=== PATIENT | female | born 1995 | race Caucasian/White ===

== ENCOUNTER 2016-03-25 03:12 | Outpatient (CLI) | payer OTHER ==
[2016-03-25 03:34] LABS: APPEARANCE,URINE SLIGHTLY-CLOUDY; BILIRUBIN,URINE NEGATIVE (NEGATIVE); GLUCOSE, URINE NEGATIVE (NEGATIVE); KETONES,URINE NEGATIVE (NEGATIVE); LEUKOCYTE ESTERASE,URINE LARGE (NEGATIVE); NITRITE,URINE NEGATIVE (NEGATIVE); PROTEIN,URINE NEGATIVE (NEGATIVE); URINE SPECIFIC GRAVITY 1.009; UROBILINOGEN,URINE NEGATIVE mg/dL (<2.0)
[2016-03-25 03:57] LABS: URINE BARBITURATES SCREEN NEGATIVE; URINE METHADONE SCREEN NEGATIVE; URINE PHENCYCLIDINE SCREEN NEGATIVE
[2016-03-25] MEDS ORDERED: PROMETHAZINE HCL 25 MG TABLET PO ONE (04:55)
[2016-03-25] MEDS ORDERED: PROMETHAZINE HCL 25 MG TABLET ONE (05:02)
--- NOTE | 2016-03-25 05:13 | Non Stress Test Report ---
Non Stress Test Datetime Report Generated by CPN: 03/25/2016 05:12 DEMOGRAPHIC Test Number: 1 EGA NST: 40.1 INDICATION Indication for Study: Other Indication for Study (NST) Other: labor check MONITORING Monitor Explained: Monitor Explained; Test Explained; Patient Verbalized Understanding Time on Monitor: 03/25/2016 03:25 Time off Monitor: 03/25/2016 03:50 NST Duration: 25 NST INTERVENTIONS NST Interventions: PO Hydration Physician Notified NST: Dr Segura BABY A: [id number] BABY A Movement : Present Contraction Frequency : 4-5 FHR Baseline : 130 Accelerations : 15X15 Decelerations : None Variability : Moderate 6-25bpm NST Review: Meets Criteria for Reactive NST NST Review and Verified By : Kallie Dowd, RN NST Results: Reactive NST REPORT Report Trigger: Send Report
== END 2016-03-25 05:08 | disposition home or self-care (01) ==
LOC: LC 03:12
PROVIDERS: ATTEND Obstetrics & Gynecology
PROC: 4A1HXCZ Monitoring of Products of Conception, Cardiac Rate, External Approach (ICD-10-PCS; principal; 2016-03-25)
DX: O47.1 False labor at or after 37 completed weeks of gestation (principal); Z3A.40 40 weeks gestation of pregnancy
CPT/HCPCS: 59025; 80307; 81005

== ENCOUNTER 2016-03-25 11:33 | Inpatient (IN) | payer OTHER ==
[2016-03-25] MEDS ORDERED: RINGERS SOLUTION,LACTATED 1,000 ML IV PRN (11:40)
[2016-03-25] MEDS ORDERED: NALBUPHINE HCL INJ 10 MG/1 ML AMPULE ONE (11:49)
[2016-03-25] MEDS ORDERED: PROMETHAZINE HCL INJ 25 MG/1 ML VIAL ONE (11:49)
--- NOTE | 2016-03-25 12:01 | L&D Flow Sheet ---
LD Flowsheet Datetime Report Generated by CPN: 03/25/2016 12:00 Datetime: 03/25/2016 11:53 Medication Comments: Nubain 10 mg IV, Phenergan 12.5 mg IV (Shaye Vitrano, RN) Datetime: 03/25/2016 11:52 Patient Care IV/Blood Work: IV Started; IV Bolus Started; IV Bag Number @ 1 (Shaye Vitrano, RN) Patient Care Comments: IV started; 20 G L wrist, site WNL. Bolus started for pt epidural. (Shaye Vitrano, RN) Datetime: 03/25/2016 11:40 Patient Care Comments: Consents reviewed and signed (Shaye Vitrano, RN) Datetime: 03/25/2016 11:37 Vital Signs NBP Sys/Kalyn/Mean (mmHg): 121 (QS system process) : 74 (QS system process) : 91 (QS system process) Pulse: 79 (QS system process) Communication Comments: Chan Mayer CNM called, report given to include EGA 40.1, , pt complaints contractions, SVE, toco tracing, FHTs, pt hx, VS. Orders to admit pt for labor and SROM, epidural PRN. May have Nubain 10 mg IV x1 now, Phenergan 12.5 mg IV x1 now for pain. (Shaye Isela RN) Datetime: 03/25/2016 11:36 Vaginal Exam Dilatation (cm): 6.0 (Shaye MYA Weiss) Effacement (%): 80 (Shaye Vitrano, RN) Station: -1 (Shaye Vitrano, RN) Exam by: Alice Weiss, RN (Shaye Vitrano, RN) Datetime: 03/25/2016 05:08 Patient Care Comments: patient ambulated off the unit in stable condition. (Nitza Gonzalez) Datetime: 03/25/2016 05:05 Medications Antiemetics/Antacids: Phenergan PO (mg) @ (Annotations: 25mg) (Nitza Gonzalez) Datetime: 03/25/2016 05:00 Teaching Comments: Discussed with the patient discharge instructions of early labor and handout given. The patient verbalized understanding of these instructions and no further questions at this time. (Nitza Gonzalez) Datetime: 03/25/2016 04:50 Communication Provider Notified (Name): Dr Segura notified no cervix change 3/50/-2 and the patient has some complaints of nausea. Orders recieved to give te patient phenergan 25 mg po times one dose, and discharge the patient home. (Nitza Gonzalez) Datetime: 03/25/2016 04:45 Vaginal Exam Dilatation (cm): 3.0 (Nitza Gonzalez) Effacement (%): 50 (Nitza Gonzalez) Station: -2 (Nitza Gonzalez) Exam by: Sandhya Gonzalez Rn (Nitza Gonzalez) Datetime: 03/25/2016 03:56 Patient Care Comments: The patient went to the [facility] and had some mild bleeding when she wiped. Explained this can be normal. No further questions or problems. (Nitza Gonzalez) Datetime: 03/25/2016 03:52 Comments: external monitors removed for maternal ambulation. (Nitza Gonzalez) Datetime: 03/25/2016 03:47 Respirations: 18 (Nitza Gonzalez) Uterine Activity Monitor Mode: External; Palpation (Nitza Gonzalez) Monitor Interventions for UA: Romulus Adjusted (Nitza Gonzalez) Frequency (min): 4-5 (Nitza Gonzalez) Quality: Mild/Moderate (Nitza Gonzalez) Duration (sec): 90-100 (Nitza Gonzalez) Resting Tone (Palpate): Relaxed (Nitza Gonzalez) Assessment A Monitor Mode: External US (Nitza Gonzalez) Monitor Interventions for FHR: Ultrasound Adjusted (Nitza Gonzalez) FHR Baseline Rate : 130 (Nitza Gonzalez) Variability: Moderate 6-25 bpm (Nitza Gonzalez) Accelerations: 15X15 (Nitza Gonzalez) Decelerations: None (Nitza Gonzalez) Patient Position/Activity: Left Tilt (Nitza Gonzalez) Datetime: 03/25/2016 03:40 Communication Provider Notified (Name): Dr Segura at the desk to view the strip/monitor. Cervix 3/50/-3. Orders recieved to walk the patient for an hour then recheck the cervix. (Nitza Gonzalez) Datetime: 03/25/2016 03:31 Frequency (min): 3-5 (Nitza Gonzalez) Pain Pain Scale: 3 (Nitza Gonzalez) Pain Presence: Intermittent (Nitza Gonzalez) Pain Type: Cramping (Nitza Gonzalez) Pain Location: Abdomen; Back (Nitza Gonzalez) Pain Goal: 0 (Nitza Gonzalez) Pain Relief Measures: Comfort Measures (Nitza Gonzalez) Pain Coping: Talking Through Contractions; Breathing Through Contractions (Nitza Gonzalez) Membrane Status: Intact (Nitza Gonzalez) Vaginal Bleeding: None (Nitza Gonzalez) Maternal Assessment Level of Consciousness: Fully Conscious (Nitza Gonzalez) DTR's/Clonus: DTRs 2+; No Clonus (Nitza Gonzalez) Headache: Denies (Nitza Gonzalez) Breath Sounds, Left: Clear and Equal (Nitza Gonzalez) Breath Sounds, Right: Clear and Equal (Nitza Gonzalez) Nausea/Vomiting: Denies (Nitza Gonzalez) RUQ Epigastric Pain: Denies (Nitza Gonzalez) Patient Position/Activity: Left Tilt (Nitza Gonzalez) Teaching Instructional Method: Verbal (Nitza Gonzalez) Plan of Care: Plan of Care Discussed (Nitza Gonzalez) Unit Routine: [facility] to Room; Call [facility]; Bed (Nitza Gonzalez) Datetime: 03/25/2016 03:28 Vital Signs NBP Sys/Kalyn/Mean (mmHg): 158 (QS system process) : 94 (QS system process) : 118 (QS system process) Pulse: 62 (QS system process) Datetime: 03/25/2016 03:25 Vaginal Exam Dilatation (cm): 3.0 (Nitza Gonzalez) Effacement (%): 50 (Nitza Gonzalez) Station: -3 (Nitza Gonzalez) Exam by: A Gonzalez Rn (Nitza Gonzalez) Datetime: 03/25/2016 03:18 Patient Care Comments: patient to the unit for labor check (Nitza Gonzalez)
[2016-03-25] MEDS ORDERED: NALBUPHINE HCL INJ 10 MG/1 ML AMPULE INJ ONE (12:10)
[2016-03-25] MEDS ORDERED: PROMETHAZINE HCL INJ 25 MG/1 ML VIAL IV ONE (12:10)
[2016-03-25] MEDS ORDERED: FENTANYL/BUPIVACAINE/NS/PF 200 MCG/100 ML RTUINJ EPI ONE (12:16)
[2016-03-25] MEDS ORDERED: OXYTOCIN/NORMAL SALINE 20 UNIT/1,000 ML RTUINJ ONE (12:16)
[2016-03-25] MEDS ORDERED: BUPIVACAINE HCL 0.25 % INJ/PF (2.5 MG/1 ML) 30 ML VIAL ONE (12:16)
[2016-03-25] MEDS ORDERED: MISOPROSTOL 0.2 MG TABLET ONE (12:16)
[2016-03-25] MEDS ORDERED: EPHEDRINE SULFATE INJ 50 MG/1 ML AMPULE ONE (12:16)
[2016-03-25] MEDS ORDERED: LIDOCAINE 1% INJ-PF (10 MG/ML) 30 ML SDV ONE (12:16)
[2016-03-25 12:23] LABS: ABSOLUTE LYMPHOCYTES (AUTO) 2.3 10^3/uL (0.5-4.7); ABSOLUTE MONOCYTES (AUTO) 0.7 10^3/uL (0.1-1.4); BASOPHILS % (AUTO) 0.3 % (0-2); EOSINOPHILS % (AUTO) 0.3 % (0-6); HEMATOCRIT 36.5 % (36.0-47.0); HEMOGLOBIN 12.3 g/dL (12.0-15.5); HGB HCT DIFFERENCE 0.4; LYMPHOCYTES % (AUTO) 25.3 % (13-45); MEAN CORPUSCULAR HGB CONC 33.7 g/dL (32.0-36.0); MEAN CORPUSCULAR VOLUME 89 fl (80-97); MONOCYTES % (AUTO) 7.7 % (3-13); RED BLOOD COUNT 4.09 10^6/uL (3.72-5.28); RED CELL DISTRIBUTION WIDTH 13.5 % (11.5-14.0); SEGMENTED NEUTROPHILS % (AUTO) 66.4 % (42-78); WHITE BLOOD COUNT 9.1 10^3/uL (4.0-10.5)
--- NOTE | 2016-03-25 16:01 | L&D Flow Sheet ---
LD Flowsheet Datetime Report Generated by CPN: 03/25/2016 16:00 Datetime: 03/25/2016 15:58 NBP Sys/Kalyn/Mean (mmHg): 103 (QS system process) : 57 (QS system process) : 76 (QS system process) Pulse: 142 (QS system process) Respirations: 16 (Shaye Vitrano, RN) LaborFlag: Labor (QS system process) Datetime: 03/25/2016 15:48 Patient Position/Activity: Left Tilt; Tailors (Shaye Vitrano, RN) Datetime: 03/25/2016 15:47 Stage 2 Comments: Practice push with Chan Mayer CNM. Pt to labor down. (Shaye Vitrano, RN) Datetime: 03/25/2016 15:46 Dilatation (cm): 10.0 (Shaye Vitrano, RN) Effacement (%): 100 (Shaye Vitrano, RN) Station: 1 (Shaye Vitrano, RN) Exam by: Chan Mayer CNM (Shaye Vitrano, RN) Datetime: 03/25/2016 15:45 Monitor Mode: External (Shaye Vitrano, RN) Frequency (min): 2-4 (Shaye Vitrano, RN) Quality: Moderate to Strong (Shaye Vitrano, RN) Duration (sec): 40-70 (Shaye Vitrano, RN) Duration Criteria: Less than Two 120 Second Contractions (Shaye Vitrano, RN) Pattern: Normal: <= 5 Contractions in 10 Minutes (Shaye Vitrano, RN) Resting Tone (Palpate): Relaxed (Shaye Vitrano, RN) Monitor Mode: External US (Shaye Vitrano, RN) FHR Baseline Rate : 140 (Shaye Vitrano, RN) Variability: Moderate 6-25 bpm (Shaye Vitrano, RN) Accelerations: 15X15 (Shaye Vitrano, RN) Decelerations: None (Shaye Vitrano, RN) Datetime: 03/25/2016 15:36 Patient Position/Activity: Left Tilt; Tailors (Shaye Vitrano, RN) I/O Interventions: Clear Liquids Given (Shaye Vitrano, RN) Datetime: 03/25/2016 15:30 Monitor Mode: External (Shaye Vitrano, RN) Frequency (min): 1-2 (Shaye Vitrano, RN) Quality: Moderate to Strong (Shaye Vitrano, RN) Duration (sec): 50-80 (Shaye Vitrano, RN) Duration Criteria: Less than Two 120 Second Contractions (Shaye Vitrano, RN) Pattern: Normal: <= 5 Contractions in 10 Minutes (Shaye Vitrano, RN) Resting Tone (Palpate): Relaxed (Shaye Vitrano, RN) Monitor Mode: External US (Shaye Vitrano, RN) FHR Baseline Rate : 140 (Shaye Vitrano, RN) Variability: Moderate 6-25 bpm (Shaye Vitrano, RN) Accelerations: 15X15 (Shaye Vitrano, RN) Decelerations: None (Shaye Vitrano, RN) Datetime: 03/25/2016 15:28 NBP Sys/Kalyn/Mean (mmHg): 123 (QS system process) : 82 (QS system process) : 98 (QS system process) Pulse: 100 (QS system process) Respirations: 16 (Shaye Vitrano, RN) Temperature (F): 98.1 (Shaye Vitrano, RN) Temperature (C): 36.7 (QS system process) Temperature Route: Axillary (Shaye Vitrano, RN) LaborFlag: Labor (QS system process) Datetime: 03/25/2016 15:18 I/O Interventions: Ice Chips Given (Shaye Vitrano, RN) Datetime: 03/25/2016 15:15 Monitor Mode: External (Shaye Vitrano, RN) Frequency (min): 1-2.5 (Shaye Vitrano, RN) Quality: Moderate to Strong (Shaye Vitrano, RN) Duration (sec): 50-90 (Shaye Vitrano, RN) Duration Criteria: Less than Two 120 Second Contractions (Shaye Vitrano, RN) Pattern: Normal: <= 5 Contractions in 10 Minutes (Shaye Vitrano, RN) Resting Tone (Palpate): Relaxed (Shaye Vitrano, RN) Monitor Mode: External US (Shaye Vitrano, RN) FHR Baseline Rate : 140 (Shaye Vitrano, RN) Variability: Moderate 6-25 bpm (Shaye Vitrano, RN) Accelerations: None (Shaye Vitrano, RN) Decelerations: None (Shaye Vitrano, RN) Datetime: 03/25/2016 15:00 Monitor Mode: External; Palpation (Shaye Vitrano, RN) Frequency (min): 1-3 (Shaye Vitrano, RN) Quality: Moderate to Strong (Shaye Vitrano, RN) Duration (sec): 50-180 (Shaye Vitrano, RN) Duration Criteria: Less than Two 120 Second Contractions (Shaye Vitrano, RN) Pattern: Normal: <= 5 Contractions in 10 Minutes (Shaye Vitrano, RN) Resting Tone (Palpate): Relaxed (Shaye Vitrano, RN) Monitor Mode: External US (Shaye Vitrano, RN) FHR Baseline Rate : 130 (Shaye Vitrano, RN) Variability: Moderate 6-25 bpm (Shaye Vitrano, RN) Accelerations: None (Shaye Vitrano, RN) Decelerations: Early (Shaye Vitrano, RN) Datetime: 03/25/2016 14:57 Communication Comments: Chan Mayer CNM reviewing POC and answering pt questions (Shaye Vitrano, RN) Datetime: 03/25/2016 14:56 NBP Sys/Kalyn/Mean (mmHg): 142 (QS system process) : 69 (QS system process) : 99 (QS system process) Pulse: 84 (QS system process) Respirations: 16 (Shaye Vitrano, RN) LaborFlag: Labor (QS system process) Datetime: 03/25/2016 14:50 Communication Comments: CNirmal Mayer CNM at bedside to assess pt (Shaye Vitrano, RN) Datetime: 03/25/2016 14:45 Monitor Mode: External (Shaye Vitrano, RN) Frequency (min): 2-3 (Shaye Vitrano, RN) Quality: Moderate to Strong (Shaye Vitrano, RN) Duration (sec): 50-80 (Shaye Vitrano, RN) Duration Criteria: Less than Two 120 Second Contractions (Shaye Vitrano, RN) Pattern: Normal: <= 5 Contractions in 10 Minutes (Shaye Vitrano, RN) Resting Tone (Palpate): Relaxed (Shaye Vitrano, RN) Monitor Mode: External US (Shaye Vitrano, RN) FHR Baseline Rate : 140 (Shaye Vitrano, RN) Variability: Moderate 6-25 bpm (Shaye Vitrano, RN) Accelerations: None (Shaye Vitrano, RN) Decelerations: Early (Shaye Vitrano, RN) Datetime: 03/25/2016 14:42 NBP Sys/Kalny/Mean (mmHg): 123 (QS system process) : 62 (QS system process) : 87 (QS system process) Pulse: 88 (QS system process) Respirations: 16 (Shaye Vitrano, RN) LaborFlag: Labor (QS system process) Datetime: 03/25/2016 14:35 Patient Position/Activity: Right Lateral; Peanut Ball (Shaye Vitrano, RN) Patient Care Comments: Pt resting comfortably, family at bedside, denies needs (Shaye Vitrano, RN) Datetime: 03/25/2016 14:30 Monitor Mode: External (Shaye Vitrano, RN) Frequency (min): 2-3.5 (Shaye Vitrano, RN) Quality: Moderate to Strong (Shaye Vitrano, RN) Duration (sec): 50-90 (Shaye Vitrano, RN) Duration Criteria: Less than Two 120 Second Contractions (Shaye Vitrano, RN) Pattern: Normal: <= 5 Contractions in 10 Minutes (Shaye Vitrano, RN) Resting Tone (Palpate): Relaxed (Shaye Vitrano, RN) Monitor Mode: External US (Shaye Vitrano, RN) FHR Baseline Rate : 130 (Shaye Vitrano, RN) Variability: Moderate 6-25 bpm (Shaye Vitrano, RN) Accelerations: None (Shaye Vitrano, RN) Decelerations: None (Shaye Vitrano, RN) Datetime: 03/25/2016 14:15 Monitor Mode: External (Shaye Vitrano, RN) Frequency (min): 2-4 (Shaye Vitrano, RN) Quality: Moderate to Strong (Shaye Vitrano, RN) Duration (sec): 50-90 (Shaye Vitrano, RN) Duration Criteria: Less than Two 120 Second Contractions (Shaye Vitrano, RN) Pattern: Normal: <= 5 Contractions in 10 Minutes (Shaye Vitrano, RN) Resting Tone (Palpate): Relaxed (Shaye Vitrano, RN) Monitor Mode: External US (Shaye Vitrano, RN) FHR Baseline Rate : 130 (Shaye Vitrano, RN) Variability: Moderate 6-25 bpm (Shaye Vitrano, RN) Accelerations: 15X15 (Shaye Vitrano, RN) Decelerations: None (Shaye Vitrano, RN) Datetime: 03/25/2016 14:11 NBP Sys/Kalyn/Mean (mmHg): 117 (QS system process) : 64 (QS system process) : 86 (QS system process) Pulse: 69 (QS system process) Respirations: 15 (Shaye Vitrano, RN) LaborFlag: Labor (QS system process) Datetime: 03/25/2016 14:00 Monitor Mode: External; Palpation (Shaye Vitrano, RN) Frequency (min): 2-5 (Shaye Vitrano, RN) Quality: Moderate to Strong (Shaye Vitrano, RN) Duration (sec): 50-90 (Shaye Vitrano, RN) Duration Criteria: Less than Two 120 Second Contractions (Shaye Vitrano, RN) Pattern: Normal: <= 5 Contractions in 10 Minutes (Shaye Vitrano, RN) Resting Tone (Palpate): Relaxed (Shaye Vitrano, RN) Monitor Mode: External US (Shaye Vitrano, RN) FHR Baseline Rate : 135 (Shaye Vitrano, RN) Variability: Moderate 6-25 bpm (Shaye Vitrano, RN) Accelerations: 15X15 (Shaye Vitrano, RN) Decelerations: None (Shaye Vitrano, RN) Datetime: 03/25/2016 13:56 NBP Sys/Kalyn/Mean (mmHg): 118 (QS system process) : 64 (QS system process) : 85 (QS system process) Pulse: 60 (QS system process) Respirations: 16 (Shaye Vitrano, RN) LaborFlag: Labor (QS system process) Datetime: 03/25/2016 13:45 Monitor Mode: External; Palpation (Shaye Vitrano, RN) Frequency (min): 2-6 (Shaye Vitrano, RN) Quality: Moderate to Strong (Shaye Vitrano, RN) Duration (sec): 60-150 (Shaye Vitrano, RN) Duration Criteria: Less than Two 120 Second Contractions (Shaye Vitrano, RN) Pattern: Normal: <= 5 Contractions in 10 Minutes (Shaye Vitrano, RN) Resting Tone (Palpate): Relaxed (Shaye Vitrano, RN) Monitor Mode: External US (Shaye Vitrano, RN) FHR Baseline Rate : 135 (Shaye Vitrano, RN) Variability: Moderate 6-25 bpm (Shaye Vitrano, RN) Accelerations: None (Shaye Vitrano, RN) Decelerations: Late (Shaye Vitrano, RN) Datetime: 03/25/2016 13:42 NBP Sys/Kalyn/Mean (mmHg): 122 (QS system process) : 67 (QS system process) : 83 (QS system process) Pulse: 70 (QS system process) Respirations: 16 (Shaye Vitrano, RN) LaborFlag: Labor (QS system process) Datetime: 03/25/2016 13:38 Temperature (F): 97.6 (Shaye Vitrano, RN) Temperature (C): 36.4 (QS system process) Temperature Route: Oral (Shaye Vitrano, RN) LaborFlag: Labor (QS system process) Datetime: 03/25/2016 13:31 Patient Position/Activity: Left Tilt; Peanut Ball (Shaye Vitrano, RN) Datetime: 03/25/2016 13:30 Monitor Mode: External; Palpation (Shaye Vitrano, RN) Frequency (min): 2-4 (Shaye Vitrano, RN) Quality: Moderate to Strong (Shaye Vitrano, RN) Duration (sec): 50-80 (Shaye Vitrano, RN) Duration Criteria: Less than Two 120 Second Contractions (Shaye Vitrano, RN) Pattern: Normal: <= 5 Contractions in 10 Minutes (Shaye Vitrano, RN) Resting Tone (Palpate): Relaxed (Shaye Vitrano, RN) Monitor Mode: External US (Shaye Vitrano, RN) FHR Baseline Rate : 130 (Shaye Vitrano, RN) Variability: Moderate 6-25 bpm (Shaye Vitrano, RN) Accelerations: None (Shaye Vitrano, RN) Decelerations: Early (Shaye Vitrano, RN) Datetime: 03/25/2016 13:28 Patient Care Comments: Warm blankets given (Shaye Vitrano, RN) Datetime: 03/25/2016 13:26 Communication Comments: Chan Mayer CNM at bedside, reviewed strip. Reviewing POC with pt, answering questions. No new orders; continue current POC. (Shaye Vitrano, RN) Datetime: 03/25/2016 13:25 NBP Sys/Kalyn/Mean (mmHg): 117 (QS system process) : 59 (QS system process) : 85 (QS system process) Respirations: 16 (Shayeeber Weiss RN) IV/Blood Work: IV Infusing per Order (Shaye Weiss RN) Patient Care Comments: 125 mL/hour (Shayeeber Weiss RN) LaborFlag: Labor (QS system process) Datetime: 03/25/2016 13:24 NBP Sys/Kalyn/Mean (mmHg): 110 (QS system process) : 66 (QS system process) : 82 (QS system process) Pulse: 77 (QS system process) Dilatation (cm): 7.0 (Shaye Isela, RN) Effacement (%): 90 (Shaye Connieano, RN) Station: 0 (Shaye Connieano, RN) Exam by: Alice Weiss RN (Shaye Connieano, RN) LaborFlag: Labor (QS system process) Datetime: 03/25/2016 13:23 NBP Sys/Kalyn/Mean (mmHg): 107 (QS system process) : 69 (QS system process) : 82 (QS system process) Pulse: 67 (QS system process) LaborFlag: Labor (QS system process) Datetime: 03/25/2016 13:22 NBP Sys/Kalyn/Mean (mmHg): 109 (QS system process) : 63 (QS system process) : 81 (QS system process) Pulse: 68 (QS system process) LaborFlag: Labor (QS system process) Datetime: 03/25/2016 13:21 NBP Sys/Kalyn/Mean (mmHg): 100 (QS system process) : 57 (QS system process) : 75 (QS system process) Pulse: 82 (QS system process) I/O Interventions: Morton Cath Inserted (Shayeeber Weiss RN) LaborFlag: Labor (QS system process) Datetime: 03/25/2016 13:20 NBP Sys/Kalyn/Mean (mmHg): 110 (QS system process) : 58 (QS system process) : 80 (QS system process) Pulse: 75 (QS system process) LaborFlag: Labor (QS system process) Datetime: 03/25/2016 13:19 NBP Sys/Kalyn/Mean (mmHg): 109 (QS system process) : 55 (QS system process) : 78 (QS system process) Pulse: 93 (QS system process) LaborFlag: Labor (QS system process) Datetime: 03/25/2016 13:18 NBP Sys/Kalyn/Mean (mmHg): 107 (QS system process) : 60 (QS system process) : 78 (QS system process) Pulse: 78 (QS system process) LaborFlag: Labor (QS system process) Datetime: 03/25/2016 13:17 NBP Sys/Kalyn/Mean (mmHg): 102 (QS system process) : 55 (QS system process) : 72 (QS system process) Pulse: 99 (QS system process) Epidural Procedure Other: Pump Started (Shaye Vitrano, RN) LaborFlag: Labor (QS system process) Datetime: 03/25/2016 13:16 NBP Sys/Kalyn/Mean (mmHg): 122 (QS system process) : 61 (QS system process) : 82 (QS system process) Pulse: 86 (QS system process) Pain Presence: None/Denies (Shaye Vitrano, RN) Pain Type: N/A (Shaye Vitrano, RN) LaborFlag: Labor (QS system process) Datetime: 03/25/2016 13:15 Monitor Mode: External (Shaye Vitrano, RN) Frequency (min): 2-4 (Shaye Vitrano, RN) Quality: Moderate to Strong (Shaye Vitrano, RN) Duration (sec): 50-80 (Shaye Vitrano, RN) Duration Criteria: Less than Two 120 Second Contractions (Shaye Vitrano, RN) Pattern: Normal: <= 5 Contractions in 10 Minutes (Shaye Vitrano, RN) Resting Tone (Palpate): Relaxed (Shaye Vitrano, RN) Monitor Mode: External US (Shaye Vitrano, RN) FHR Baseline Rate : 135 (Shaye Vitrano, RN) Variability: Moderate 6-25 bpm (Shaye Vitrano, RN) Accelerations: 15X15 (Shaye Vitrano, RN) Decelerations: None (Shaye Vitrano, RN) Datetime: 03/25/2016 13:14 Monitor Interventions for UA: [place] Adjusted (Shaye Vitrano, RN) Datetime: 03/25/2016 13:13 Patient Position/Activity: Left Tilt; Semi-Fowlers (Shaye Vitrano, RN) Hygiene: Underpad Changed (Shaye Vitrano, RN) Datetime: 03/25/2016 13:11 NBP Sys/Kalyn/Mean (mmHg): 124 (QS system process) : 82 (QS system process) : 99 (QS system process) Pulse: 78 (QS system process) LaborFlag: Labor (QS system process) Datetime: 03/25/2016 13:10 NBP Sys/Kalyn/Mean (mmHg): 133 (QS system process) : 76 (QS system process) : 99 (QS system process) Pulse: 77 (QS system process) Pulse: 78 (QS system process) SpO2 (%): 100 (QS system process) LaborFlag: Labor (QS system process) Datetime: 03/25/2016 13:09 NBP Sys/Kalyn/Mean (mmHg): 137 (QS system process) : 83 (QS system process) : 105 (QS system process) Pulse: 71 (QS system process) LaborFlag: Labor (QS system process) Datetime: 03/25/2016 13:08 NBP Sys/Kalyn/Mean (mmHg): 140 (QS system process) : 85 (QS system process) : 107 (QS system process) Pulse: 75 (QS system process) LaborFlag: Labor (QS system process) Datetime: 03/25/2016 13:07 NBP Sys/Kalyn/Mean (mmHg): 132 (QS system process) : 80 (QS system process) : 102 (QS system process) Pulse: 78 (QS system process) Anesthesia Plans: Epidural (Shaye Vitrano, RN) Epidural Procedure: Loading Dose (Shaye Vitrano, RN) LaborFlag: Labor (QS system process) Datetime: 03/25/2016 13:06 NBP Sys/Kalyn/Mean (mmHg): 139 (QS system process) : 80 (QS system process) : 104 (QS system process) Pulse: 77 (QS system process) Epidural Procedure: Cath Placed (Shaye Vitrano, RN) Epidural Procedure: Test Dose (Shaye Vitrano, RN) LaborFlag: Labor (QS system process) Datetime: 03/25/2016 13:05 Pulse: 72 (QS system process) SpO2 (%): 100 (QS system process) LaborFlag: Labor (QS system process) Datetime: 03/25/2016 13:01 Comments: Tracing maternal HR d/t pt position for epidural, RN at bedside adjusting US (Shaye Vitrano, RN) Datetime: 03/25/2016 13:00 Pulse: 82 (QS system process) SpO2 (%): 100 (QS system process) Monitor Mode: External; Palpation (Shaye Vitrano, RN) Frequency (min): 2-5 (Shaye Vitrano, RN) Quality: Moderate to Strong (Shaye Vitrano, RN) Duration (sec): 60-90 (Shaye Vitrano, RN) Duration Criteria: Less than Two 120 Second Contractions (Shaye Vitrano, RN) Pattern: Normal: <= 5 Contractions in 10 Minutes (Shaye Vitrano, RN) Resting Tone (Palpate): Relaxed (Shaye Vitrano, RN) Monitor Mode: External US (Shaye Vitrano, RN) FHR Baseline Rate : 130 (Shaye Vitrano, RN) Variability: Moderate 6-25 bpm (Shaye Vitrano, RN) Accelerations: 15X15 (Shaye Vitrano, RN) Decelerations: None (Shaye Vitrano, RN) LaborFlag: Labor (QS system process) Datetime: 03/25/2016 12:57 Comments: Broken tracing d/t pt position for epidural, RN remains at bedside to adjust US (Shaye Vitrano, RN) Datetime: 03/25/2016 12:56 IV/Blood Work: New IV Bag Hung; IV Bag Number @ 2 (Shaye Vitrano, RN) Datetime: 03/25/2016 12:55 Pulse: 89 (QS system process) SpO2 (%): 100 (QS system process) Procedure Verify: Correct Patient Identity; Correct Side and Site are Marked; Accurate Procedure Consent Form; Agreement on Procedure to be Done; Correct Patient Position; Relevant Images and Results are Properly Labeled and Displayed; Addressed Need to Administer Antibiotics or Fluids for Irrigation; Safety Precautions Based on Patient History or Medication Use (Shaye Weiss RN) Anesthesia Plans: Epidural (Shaye Weiss RN) Epidural Positioning: Sitting (Shaye Weiss RN) Anesthesia Comments: Dr. Hinds at bedside (Shaye Weiss RN) LaborFlag: Labor (QS system process) Datetime: 03/25/2016 12:50 Pulse: 75 (QS system process) SpO2 (%): 100 (QS system process) LaborFlag: Labor (QS system process) Datetime: 03/25/2016 12:45 Pulse: 76 (QS system process) SpO2 (%): 100 (QS system process) LaborFlag: Labor (QS system process) Datetime: 03/25/2016 12:40 Pulse: 91 (QS system process) SpO2 (%): 100 (QS system process) LaborFlag: Labor (QS system process) Datetime: 03/25/2016 12:39 Procedure Verify: Correct Patient Identity; Correct Side and Site are Marked; Accurate Procedure Consent Form; Agreement on Procedure to be Done; Correct Patient Position; Relevant Images and Results are Properly Labeled and Displayed; Addressed Need to Administer Antibiotics or Fluids for Irrigation; Safety Precautions Based on Patient History or Medication Use (Shaye Weiss RN) Anesthesia Plans: Epidural (Shaye Weiss RN) Anesthesia Comments: Dr. Hinds notified of pt request for epidural, provider states he will be on his way up (Shaye Vitrano, RN) Datetime: 03/25/2016 12:38 NBP Sys/Kalyn/Mean (mmHg): 132 (QS system process) : 96 (QS system process) : 108 (QS system process) Pulse: 107 (QS system process) Respirations: 16 (Shaye Vitrano, RN) LaborFlag: Labor (QS system process) Datetime: 03/25/2016 12:37 Anesthesia Plans: Epidural (Shaye Vitrano, RN) Epidural Positioning: Sitting (Shaye Vitrano, RN) Datetime: 03/25/2016 12:30 Monitor Mode: External; Palpation (Shaye Vitrano, RN) Frequency (min): 3-5 (Shaye Vitrano, RN) Quality: Moderate to Strong (Shaye Vitrano, RN) Duration (sec): 60-90 (Shaye Vitrano, RN) Duration Criteria: Less than Two 120 Second Contractions (Shaye Vitrano, RN) Pattern: Normal: <= 5 Contractions in 10 Minutes (Shaye Vitrano, RN) Resting Tone (Palpate): Relaxed (Shaye Vitrano, RN) Monitor Mode: External US (Shaye Vitrano, RN) FHR Baseline Rate : 135 (Shaye Vitrano, RN) Variability: Moderate 6-25 bpm (Shaye Vitrano, RN) Accelerations: 15X15 (Shaye Vitrano, RN) Decelerations: Early (Sahye Vitrano, RN) Datetime: 03/25/2016 12:21 Patient Care Comments: Pt resting comfortably in bed, denies needs, FOB at bedside (Shaye Vitrano, RN) Datetime: 03/25/2016 12:11 Patient Care Comments: Labs drawn (Shaye Vitrano, RN) Datetime: 03/25/2016 12:02 Pain Assessment Comments: States pain is relieved (Shaye Vitrano, RN) LaborFlag: Labor (QS system process) Datetime: 03/25/2016 12:00 Monitor Mode: External; Palpation (Shaye Vitrano, RN) Frequency (min): 2-4 (Shaye Vitrano, RN) Quality: Moderate to Strong (Shaye Vitrano, RN) Duration (sec): 50-120 (Shaye Vitrano, RN) Duration Criteria: Less than Two 120 Second Contractions (Shaye Vitrano, RN) Pattern: Normal: <= 5 Contractions in 10 Minutes (Shaye Vitrano, RN) Resting Tone (Palpate): Relaxed (Shaye Vitrano, RN) Monitor Mode: External US (Shaye Vitrano, RN) FHR Baseline Rate : 145 (Shaye Vitrano, RN) Variability: Moderate 6-25 bpm (Shaye Weiss RN) Accelerations: 15X15 (Shaye Weiss RN) Decelerations: None (Shaye Weiss RN)
--- NOTE | 2016-03-25 16:29 | L&D Progress Notes ---
PROGRESS NOTES Datetime Report Generated by CPN: 03/25/2016 16:28 PROGRESS NOTE Impression: Normal Progression of Labor Impression: Normal Progression of Labor Procedures: Sterile Vag Exam Procedures: Sterile Vag Exam Plan: Continue Present Management Plan: Continue Present Management Informed Consent Obtained: Vaginal Delivery Informed Consent Obtained: Vaginal Delivery Vital Signs : Reviewed Vital Signs : Within Normal Limits Comment: Pt. nauseous and feeling occ. perineal pressure VSS, cervix and uc as stated above will labor down x30min then start pushing pt. asked questions and verbalized understanding. Dr. Mclaughlin in unit and aware VAGINAL EXAM Dilatation: 10 Dilatation: 7 Effacement: 100 Effacement: 90 Station: 1 Station: 0 Contractions: 2-3 Contractions: 1-3 MEMBRANES Membranes: Ruptured Amniotic Fluid Color: Clear Amniotic Fluid Color: Clear FETUS A FHR - Baseline: 150 Monitoring: External US Variability: Moderate 6-25bpm Accelerations: 15X15 Decelerations: None FHR Category: Category I SIGNATURE SIGNATURE: [id number] SIGNATURE: [id number] Assignment: Husam Mclaughlin DO Signature: with User ID: Eliu : with User ID: [email or web address]
[2016-03-25] MEDS ORDERED: ACETAMINOPHEN 650 MG SUPP.RECT PR PRN (17:03)
[2016-03-25] MEDS ORDERED: PROMETHAZINE HCL 25 MG TABLET PO PRN (17:03)
[2016-03-25] MEDS ORDERED: GLYCERIN/WITCH HAZEL LEAF 1 EACH MED..PAD TP PRN (17:03)
[2016-03-25] MEDS ORDERED: OXYTOCIN/NORMAL SALINE 1,000 ML IV PRN (17:03)
[2016-03-25] MEDS ORDERED: PROMETHAZINE HCL 25 MG SUPP.RECT PR PRN (17:03)
[2016-03-25] MEDS ORDERED: DIBUCAINE 1% OINTMENT 28 GM TP PRN (17:03)
[2016-03-25] MEDS ORDERED: PSEUDOEPHEDRINE HCL 30 MG TABLET PO PRN (17:03)
[2016-03-25] MEDS ORDERED: PROMETHAZINE HCL INJ 25 MG/1 ML VIAL IV PRN (17:03)
[2016-03-25] MEDS ORDERED: MEASLES,MUMPS&RUBELLA VACC/PF 0.5 ML VIAL SUBCUT PRN (17:03)
[2016-03-25] MEDS ORDERED: NA PHOS,M-B/NA PHOS,DI-BA (ADULT) 133 ML ENEMA PR PRN (17:03)
[2016-03-25] MEDS ORDERED: ACETAMINOPHEN WITH CODEINE #3 TABLET PO PRN (17:03)
[2016-03-25] MEDS ORDERED: DIPH/PERTUSS(ACELL)/TETANUS VAC/PF 0.5 ML SYR (>=10YO) IM PRN (17:03)
[2016-03-25] MEDS ORDERED: BENZOCAINE/MENTHOL AEROSOL SPRAY 56 ML TOP PRN (17:03)
[2016-03-25] MEDS ORDERED: MAGNESIUM HYDROXIDE SUSP 30 ML UDCUP PO PRN (17:03)
[2016-03-25] MEDS ORDERED: DIPHENHYDRAMINE HCL 25 MG CAPSULE PO PRN (17:03)
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
[2016-03-25] MEDS ORDERED: DOCUSATE SODIUM 100 MG CAPSULE ONE (18:40)
[2016-03-25] MEDS ORDERED: FERROUS SULFATE 325 MG TABLET PO ONE (18:40)
[2016-03-25] MEDS ORDERED: IBUPROFEN 800 MG TABLET ONE (18:40)
[2016-03-25] MEDS: IBUPROFEN 800 MG TABLET PO SCH (18:41)
[2016-03-25] MEDS: FERROUS SULFATE 325 MG TABLET PO SCH (18:41)
[2016-03-25] MEDS: DOCUSATE SODIUM 100 MG CAPSULE PO SCH (18:41)
[2016-03-25] MEDS ORDERED: PROMETHAZINE HCL 25 MG TABLET ONE (19:54)
--- NOTE | 2016-03-25 20:00 | L&D Flow Sheet ---
LD Flowsheet Datetime Report Generated by CPN: 03/25/2016 20:00 Datetime: 03/25/2016 19:45 Pain Scale: 0 (Shaye Vitrano, RN) Pain Presence: None/Denies (Shaye Vitrano, RN) Pain Type: N/A (Shaye Vitrano, RN) Datetime: 03/25/2016 19:40 Stage of : Recovery (Shaye Vitrano, RN) Datetime: 03/25/2016 19:39 NBP Sys/Kalyn/Mean (mmHg): 113 (QS system process) : 75 (QS system process) : 89 (QS system process) Pulse: 99 (QS system process) Respirations: 16 (Shaye Vitrano, RN) Datetime: 03/25/2016 19:24 NBP Sys/Kalyn/Mean (mmHg): 121 (QS system process) : 86 (QS system process) : 98 (QS system process) Pulse: 103 (QS system process) Respirations: 16 (Shaye Vitrano, RN) Datetime: 03/25/2016 19:09 NBP Sys/Kalyn/Mean (mmHg): 124 (QS system process) : 80 (QS system process) : 99 (QS system process) Pulse: 94 (QS system process) Respirations: 16 (Shaye Vitrano, RN) Datetime: 03/25/2016 19:00 Stage of : Recovery (Shaye Vitrano, RN) Pain Scale: 0 (Shaye Vitrano, RN) Pain Presence: None/Denies (Shaye Vitrano, RN) Pain Type: N/A (Shaye Vitrano, RN) Datetime: 03/25/2016 18:54 NBP Sys/Kalyn/Mean (mmHg): 125 (QS system process) : 80 (QS system process) : 97 (QS system process) Pulse: 100 (QS system process) Respirations: 16 (Shyae Vitrano, RN) Datetime: 03/25/2016 18:39 NBP Sys/Kalyn/Mean (mmHg): 125 (QS system process) : 85 (QS system process) : 101 (QS system process) Pulse: 106 (QS system process) Respirations: 16 (Shaye Vitrano, RN) Datetime: 03/25/2016 18:35 Stage of : Recovery (Shaye Vitrano, RN) Pain Scale: 0 (Shaye Vitrano, RN) Pain Presence: None/Denies (Shaye Vitrano, RN) Pain Type: N/A (Shaye Vitrano, RN) Datetime: 03/25/2016 18:24 NBP Sys/Kalyn/Mean (mmHg): 129 (QS system process) : 87 (QS system process) : 103 (QS system process) Pulse: 92 (QS system process) Respirations: 16 (Shaye Vitrano, RN) Datetime: 03/25/2016 18:09 NBP Sys/Kalyn/Mean (mmHg): 132 (QS system process) : 90 (QS system process) : 107 (QS system process) Pulse: 101 (QS system process) Respirations: 16 (Shaye Vitrano, RN) Datetime: 03/25/2016 18:05 Stage of : Recovery (Shaye Vitrano, RN) Pain Scale: 0 (Shaye Vitrano, RN) Pain Presence: None/Denies (Shaye Vitrano, RN) Pain Type: N/A (Shaye Vitrano, RN) Datetime: 03/25/2016 17:54 NBP Sys/Kalyn/Mean (mmHg): 135 (QS system process) : 78 (QS system process) : 101 (QS system process) Pulse: 69 (QS system process) Respirations: 16 (Shaye Vitrano, RN) Datetime: 03/25/2016 17:50 Pain Scale: 0 (Shaye Vitrano, RN) Pain Presence: None/Denies (Shaye Vitrano, RN) Pain Type: N/A (Shaye Vitrano, RN) Datetime: 03/25/2016 17:35 Stage of : Recovery (Shaye Vitrano, RN) Pain Scale: 0 (Shaye Vitrano, RN) Pain Presence: None/Denies (Shaye Vitrano, RN) Pain Type: N/A (Shaye Vitrano, RN) Datetime: 03/25/2016 17:24 NBP Sys/Kalyn/Mean (mmHg): 117 (QS system process) : 60 (QS system process) : 86 (QS system process) Pulse: 88 (QS system process) Respirations: 16 (Shaye Vitrano, RN) Datetime: 03/25/2016:20 Pain Scale: 0 (Shaey Vitrano, RN) Pain Presence: None/Denies (Shaye Vitrano, RN) Pain Type: N/A (Shaye Vitrano, RN) Datetime: 03/25/2016 17:09 NBP Sys/Kalyn/Mean (mmHg): 120 (QS system process) : 64 (QS system process) : 87 (QS system process) Pulse: 75 (QS system process) Respirations: 15 (Shaye Vitrano, RN) Datetime: 03/25/2016 16:54 NBP Sys/Kalyn/Mean (mmHg): 129 (QS system process) : 66 (QS system process) : 90 (QS system process) Pulse: 82 (QS system process) Respirations: 15 (Shaye Vitrano, RN) Datetime: 03/25/2016 16:53 Stage of : Recovery (Shaye Vitrano, RN) Datetime: 03/25/2016 16:46 Stage 2 Comments: viable baby boy, see delivery summary (Shaye Vitrano, RN) Datetime: 03/25/2016 16:45 Monitor Mode: External; Palpation (Shaye Vitrano, RN) Frequency (min): 2-3 (Shaye Vitrano, RN) Quality: Moderate to Strong (Shaye Vitrano, RN) Duration (sec): 50-90 (Shaye Vitrano, RN) Duration Criteria: Less than Two 120 Second Contractions (Shaye Vitrano, RN) Pattern: Normal: <= 5 Contractions in 10 Minutes (Shaye Vitrano, RN) Resting Tone (Palpate): Relaxed (Shaye Vitrano, RN) Monitor Mode: External US (Shaye Vitrano, RN) FHR Baseline Rate : 150 (Shaye Vitrano, RN) Variability: Moderate 6-25 bpm (Shaye Vitrano, RN) Accelerations: None (Shaye Vitrano, RN) Decelerations: Prolonged (Shaye Vitrano, RN) Datetime: 03/25/2016 16:33 Communication: Provider at Bedside (Shaye Vitrano, RN) Datetime: 03/25/2016 16:31 Communication Comments: CNM requested for delivery (Shaye Vitrano, RN) Datetime: 03/25/2016 16:30 NBP Sys/Kalyn/Mean (mmHg): 114 (QS system process) : 73 (QS system process) : 89 (QS system process) Pulse: 118 (QS system process) Respirations: 16 (Shaye Vitrano, RN) Monitor Mode: External; Palpation (Shaye Vitrano, RN) Frequency (min): 2-3 (Shaye Vitrano, RN) Quality: Moderate to Strong (Shaye Vitrano, RN) Duration (sec): 50-90 (Shaye Vitrano, RN) Duration Criteria: Less than Two 120 Second Contractions (Shaye Vitrano, RN) Pattern: Normal: <= 5 Contractions in 10 Minutes (Shaye Vitrano, RN) Resting Tone (Palpate): Relaxed (Shaye Vitrano, RN) Monitor Mode: External US (Shaye Vitrano, RN) FHR Baseline Rate : 145 (Shaye Vitrano, RN) Variability: Moderate 6-25 bpm (Shaye Vitrano, RN) Accelerations: 15X15 (Shaye Vitrano, RN) Decelerations: None (Shaye Vitrano, RN) Pushing Progress: Presenting Part Visible (Shaye Vitrano, RN) LaborFlag: Labor (QS system process) Datetime: 03/25/2016 16:29 Pushing: Coached on Pushing; Urge to Push (Shaye Vitrano, RN) Pushing Position: Pushing with Contractions (Shaye Vitrano, RN) Stage 2 Comments: Coached on pushing. Pt to begin pushing with contractions. RN remains at bedside while pt pushes continuously adjusting US and assessing FHTs. (Shaye Vitrano, RN) Datetime: 03/25/2016 16:28 Communication Comments: Pt to begin pushing per CNM. (Shaye Vitrano, RN) Datetime: 03/25/2016 16:25 I/O Interventions: Morton Discontinued (Shaye Vitrano, RN) Datetime: 03/25/2016 16:15 Monitor Mode: External (Shaye Vitrano, RN) Frequency (min): 2-3 (Shaye Vitrano, RN) Quality: Moderate to Strong (Shaye Vitrano, RN) Duration (sec): 50-80 (Shaye Vitrano, RN) Duration Criteria: Less than Two 120 Second Contractions (Shaye Vitrano, RN) Pattern: Normal: <= 5 Contractions in 10 Minutes (Shaye Vitrano, RN) Resting Tone (Palpate): Relaxed (Shaye Vitrano, RN) Monitor Mode: External US (Shaye Vitrano, RN) FHR Baseline Rate : 150 (Shaye Vitrano, RN) Variability: Moderate 6-25 bpm (Shaye Vitrano, RN) Accelerations: 10X10 (Shaye Vitrano, RN) Decelerations: Early (Shaye Vitrano, RN) Datetime: 03/25/2016 16:00 Monitor Mode: External; Palpation (Shaye Vitrano, RN) Frequency (min): 2-3 (Shaye Vitrano, RN) Quality: Moderate to Strong (Shaye Vitrano, RN) Duration (sec): 50-80 (Shaye Vitrano, RN) Duration Criteria: Less than Two 120 Second Contractions (Shaye Vitrano, RN) Pattern: Normal: <= 5 Contractions in 10 Minutes (Shaye Vitrano, RN) Resting Tone (Palpate): Relaxed (Shaye Vitrano, RN) Monitor Mode: External US (Shaye Vitrano, RN) FHR Baseline Rate : 150 (Shaye Vitrano, RN) Variability: Moderate 6-25 bpm (Shaye Vitrano, RN) Accelerations: 15X15 (Shaye Vitrano, RN) Decelerations: None (Shaye Vitrano, RN)
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
[2016-03-25] MEDS: FAMOTIDINE 20 MG TABLET PO SCH (21:59)
[2016-03-26] MEDS: IBUPROFEN 800 MG TABLET PO SCH ×3 (05:06→21:47)
[2016-03-26] MEDS: ACETAMINOPHEN WITH CODEINE #3 TABLET PO PRN ×4 (05:40→18:25)
--- NOTE | 2016-03-26 06:25 | L&D General Admission ---
General Admit Datetime Report Generated by CPN: 03/26/2016 06:00 INFORMATION Patient Age: 20 (02/16/2016 13:27:QS system process) EDC: 03/24/2016 00:00 (03/25/2016 03:20:Birgit Rangel RN) : 1 (03/25/2016 03:20:Birgit Rangel RN) Para: 0 (03/25/2016 05:11:Nitzavalerie Gonzalez) Term: 0 (03/25/2016 03:20:Birgit Rangel RN) : 0 (03/25/2016 03:20:Birgit Rangel RN) Spontaneous Abortions: 0 (03/25/2016 03:20:Birgit Rangel RN) Induced Abortions: 0 (03/25/2016 03:20:Birgit Rangel RN) Livin (03/25/2016 03:20:Birgit Rangel RN) Cesareans: 0 (03/25/2016 03:20:Shaye Weiss RN) VBACs: 0 (03/25/2016 03:20:Shaye Weiss RN) Ectopic: 0 (03/25/2016 03:20:Shaye Weiss RN) Multiple Births: 0 (03/25/2016 03:20:Shaye Weiss RN) Baby, Number in Womb: 1 (03/25/2016 05:11:Nitza Gonzalez) CARE Primary Secy: [facility] (03/25/2016 03:20:Birgit Rangel RN) Month of 1st Visit: 08/19 (03/25/2016 03:20:Shaye Weiss RN) Adequate Care: Yes (03/25/2016 03:20:Shaye Weiss RN) Height (in): 62 (03/25/2016 20:38:QS system process) ALLERGIES Medication Allergy: No (03/25/2016 03:20:Nitza Gonzalez) Medication Allergies: No Known Allergies (03/25/2016) (03/25/2016 03:45:QS system process) Latex Allergy: No Latex Allergies (03/25/2016 03:20:Nitza Gonzalez) Food Allergies: none (03/25/2016 03:20:Nitza Gonzalez) Environmental Allergies: none (03/25/2016 03:20:Nitza Gonzalez) COMMUNICATION Primary Language: Swedish (03/25/2016 03:20:Nitza Gonzalez) Medical Tx Preferred Language: Swedish (03/25/2016 03:20:Nitza Gonzalez) DEMOGRAPHICS Address: [address] [place] [id number] (02/16/2016 13:27:QS system process) Zipcode: [id number] (02/16/2016 13:27:QS system process) Home (02/16/2016 13:27:QS system process) N: [id number] (02/16/2016 13:27:QS system process) Next of Kin Name: JOJO MELGOZA (02/16/2016 13:27:QS system process) Next of Kin (02/16/2016 13:27:QS system process) Next of Kin Relationship: SPO (02/16/2016 13:27:QS system process) Date of : 1995 (02/16/2016 13:27:QS system process) Marital Status: (02/16/2016 13:27:QS system process) Sex: Female (02/16/2016 13:27:QS system process) Race: (02/16/2016 13:27:QS system process) Ethnicity: Non- or (02/16/2016 13:27:QS system process) Worship: Nondenominational (02/16/2016 13:27:QS system process) DRUG AND ALCOHOL USE Alcohol: No (03/25/2016 03:20:Nitza Gonzalez) Cigarettes: Never Smoker. 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: [employer] (03/25/2016 03:20:Shaye Weiss RN) Feeding Preference: Breast (03/25/2016 03:20:Nitza Gonzalez) Benefit of Breast Feed Discussed: Yes (03/25/2016 03:20:Shaye Weiss RN) Circumcision: Yes (03/25/2016 03:20:Nitza Gonzalez) Classes Attended: No (03/25/2016 03:20:Nitza Gonzalez) Tubal Ligation: No (03/25/2016 03:20:Nitza Gonzalez) Tubal Authorization Signed: N/A (03/25/2016 03:20:Nitza Gonzalez) Consent: N/A (03/25/2016 03:20:Nitza Gonzalez) Consent Signed: N/A (03/25/2016 03:20:Nitza Gonzalez) Pain Management Plans: Epidural (03/25/2016 03:20:Nitza Gonzalez) Plans for Labor and Delivery: None (03/25/2016 03:20:Nitza Gonzalez) Support Person: Jojo (03/25/2016 03:20:Nitza Gonzalez) Support Person Relationship: (03/25/2016 03:20:Nitza Gonzalez) Cultural/Spritual Practice: No (03/25/2016 03:20:Nitza Gonzalez) Spir/Cult Dietary Needs: No (03/25/2016 03:20:Nitzavalerie Gonzalez) LIVING SITUATION/DISCHARGE PLAN Living Arrangements: House (03/25/2016 03:20:Nitza Gonzalez) Adequate Access to:: Electric; Heat; Refrigeration; Plumbing/Running water; Phone; Transportation (03/25/2016 03:20:Nitza Gonzalez) WIC Program: No (03/25/2016 03:20:Nitza Gonzalez) Discharge Campground Attendant Person: jojo- (03/25/2016 03:20:Nitza Gonzalez) Person to Help after Discharge: jojo- (03/25/2016 03:20:Nitza Gonzalez) Currently Using Commun Resources: No (03/25/2016 03:20:Nitza Gonzalez) Outside Agency/Clinic Cma: No (03/25/2016 03:20:Nitza Gonzalez) Car Seat for Discharge: Yes (03/25/2016 03:20:Nitza Gonzalez) Adoption Requested: No (03/25/2016 03:20:Nitza Gonzalez) Pt Contact w/infant Post : N/A (03/25/2016 03:20:Nitzavalerie Gonzalez) LABS Blood Type: A Negative (03/25/2016 03:20:Birgit Rangel RN) Antibody Screen: negative (03/25/2016 03:20:Birgit Rangel RN) Rho(G) this : Yes (03/25/2016 03:20:Shaye Weiss RN) Date Rho(G) Given: 01/05/16 (03/25/2016 03:20:Shaye Weiss RN) Hemoglobin: 12.3 (03/25/2016 12:11:QS system process) Hematocrit: 36.5 (03/25/2016 12:11:QS system process) MCV: 89 (03/25/2016 12:11:QS system process) Group Beta Strep: negative (03/25/2016 03:20:Birgit Rangel RN) Gonorrhea: Negative (03/25/2016 03:20:Birgit Rangel RN) Chlamydia: Negative (03/25/2016 03:20:Birgit Rangel RN) RPR/VDRL: Nonreactive (03/25/2016 03:20:Birgit Rangel RN) HIV Exposure Test: Negative (03/25/2016 03:20:Shaye Weiss RN) HIV Results: nonreactive (03/25/2016 03:20:Birgit Rangel RN) Hepatitis B: Negative (03/25/2016 03:20:Birgit Rangel RN) Rubella: Immune (03/25/2016 03:20:Birgit Rangel RN) OB/PREVIOUS HISTORY Previous Procedures: None (03/25/2016 03:20:Nitza Gonzalez) Current Procedures: Ultrasound; NST (03/25/2016 03:20:Nitza Gonzalez) History of Previous : No (03/25/2016 03:20:Nitza Gonzalez) History of Gestational Diabetes: No (03/25/2016 03:20:Nitza Gonzalez) History of PIH: No (03/25/2016 03:20:Nitza Gonzalez) History of Incompetent Cervix: No (03/25/2016 03:20:Nitza Gonzalez) History of Placenta Previa/Abrup: No (03/25/2016 03:20:Nitza Gonzalez) History of Macrosomia: No (03/25/2016 03:20:Nitza Gonzalez) History of IUGR: No (03/25/2016 03:20:Nitza Gonzalez) History of Hemorrhage: No (03/25/2016 03:20:Nitza Gonzalez) History of Loss/Stillborn: No (03/25/2016 03:20:Nitza Gonzalez) History of : No (03/25/2016 03:20:Nitza Gonzalez) History of D (Rh) Sensitization: No (03/25/2016 03:20:Nitza Gonzalez) History Recurrent Loss/Stillborn: No (03/25/2016 03:20:Nitza Gonzalez) History Depression/PP Depression: No (03/25/2016 03:20:Nitza Gonzalez) History of Uterine Anomaly/DEVIN: No (03/25/2016 03:20:Nitza Gonzalez) History of Infertility: No (03/25/2016 03:20:Nitza Gonzalez) History of ART Treatment: No (03/25/2016 03:20:Nitza Gonzalez) History of DEVIN: No (03/25/2016 03:20:Nitza Gonzalez) Comments Obstetrical History: current 2016 (03/25/2016 03:20:Nitza Gonzalez) MEDICAL HISTORY Med Hx Diabetes: No (03/25/2016 03:20:Nitza Gonzalez) Med Hx Hypertension: No (03/25/2016 03:20:Nitza Gonzalez) Med Hx Heart Disease: No (03/25/2016 03:20:Nitza Gonzalez) Med Hx Autoimmune Disorder: No (03/25/2016 03:20:Nitza Gonzalez) Med Hx Kidney Disease/UTI: No (03/25/2016 03:20:Nitza Gonzalez) Med Hx Neurologic/Epilepsy: No (03/25/2016 03:20:Nitza Gonzalez) Med Hx Psychiatric Disorders: No (03/25/2016 03:20:Nitza Gonzalez) Med Hx Hepatitis/Liver Disease: No (03/25/2016 03:20:Nitza Gonzalez) Med Hx Varicosities/Phlebitis: No (03/25/2016 03:20:Nitza Gonzalez) Med Hx Thyroid Dysfunction: No (03/25/2016 03:20:Nitza Gonzalez) Med Hx Trauma/Violence: No (03/25/2016 03:20:Nitza Gonzalez) Med Hx Blood Transfusion: No (03/25/2016 03:20:Nitza Gonzalez) Med Hx Pulmonary (Asthma,TB): Yes (03/25/2016 03:20:Shaye Weiss RN) Med Hx Breast: No (03/25/2016 03:20:Nitza Gonzalez) Med Hx [employer] Surgery: No (03/25/2016 03:20:Nitza Gonzalez) Med Hx Hospitalization/Surgery: Yes (03/25/2016 03:20:Shaye Weiss RN) Med Hx Anesthetic Complications: No (03/25/2016 03:20:Nitza Gonzalez) Med Hx Abnormal Pap Smear: No (03/25/2016 03:20:Nitza Gonzalez) Other Medical Diseases: No (03/25/2016 03:20:Nitza Gonzalez) Med Hx Significant Family Hx: No (03/25/2016 03:20:Nitza Gonzalez) Details of Med/Surg Hx: Surgery: Flushing teeth removed; Hip surgery bileratal hips for bone spurs and muscular tears (Annotations: Data stored by CPN on behalf of user) (03/25/2016 03:20:Shaye Weiss, RN) INFECTIOUS HISTORY Inf Hx Gonorrhea: No (03/25/2016 03:20:Nitza Gonzalez) Inf Hx Chlamydia: No (03/25/2016 03:20:Nitza Gonzalez) Inf Hx Syphilis: No (03/25/2016 03:20:Nitza Gonzalez) Inf Hx HIV/AIDS: No (03/25/2016 03:20:Nitza Gonzalez) Inf Hx Human Papilloma Virus: No (03/25/2016 03:20:Nitza Gonzalez) Inf Hx Pt/Partner Genital Herpes: No (03/25/2016 03:20:Nitza Gonzalez) Inf Hx Tuberculosis/Exposure: No (03/25/2016 03:20:Nitza Gonzalez) Inf Hx Hepatitis B,C: No (03/25/2016 03:20:Nitza Gonzalez) Inf Hx Rash or Viral Illness: No (03/25/2016 03:20:Nitza Gonzalez) GENETIC HISTORY Gen Hx Age >=35 at STEFFANY: No (03/25/2016 03:20:Nitza Gonzalez) Gen Hx Thalassemia: No (03/25/2016 03:20:Nitza Gonzalez) Gen Hx Congenital Heart Defect: No (03/25/2016 03:20:Nitza Gonzalez) Gen Hx Neural Tube Defect: No (03/25/2016 03:20:Nitza Gonzalez) Gen Hx Down's Syndrome: No (03/25/2016 03:20:Nitza Gonzalez) Gen Hx Jose Ramon-Sachs: No (03/25/2016 03:20:Nitza Gonzalez) Gen Hx Dea: No (03/25/2016 03:20:Nitza Gonzalez) Gen Hx Familial Dysautonomia: No (03/25/2016 03:20:Nitza Gonzalez) Gen Hx Sickle Cell Disease/Trait: No (03/25/2016 03:20:Nitza Gonzalez) Gen Hx Hemophilia/Blood Disorder: No (03/25/2016 03:20:Nitza Gonzalez) Gen Hx Muscular Dystrophy: No (03/25/2016 03:20:Nitza Gonzalez) Gen Hx Cystic Fibrosis: No (03/25/2016 03:20:Nitza Gonzalez) Gen Hx Huntingtons Chorea: No (03/25/2016 03:20:Nitza Gonzalez) Gen Hx Mental Retardation/Autism: No (03/25/2016 03:20:Nitza Gonzalez) Gen Hx Tested for Fragile X: No (03/25/2016 03:20:Nitza Gonzalez) Gen Hx Other Inher/Chromosomal: No (03/25/2016 03:20:Nitza Gonzalez) Gen Hx Maternal Metabolic DO: No (03/25/2016 03:20:Nitza Gonzalez) Gen Hx Pt Father or FOB Defect: No (03/25/2016 03:20:Nitza Gonzalez) Gen Hx Other Genetic History: No (03/25/2016 03:20:Nitza Gonzalez) Gen Hx Drugs/Meds since LMP: No (03/25/2016 03:20:Nitza Gonzalez)
--- NOTE | 2016-03-26 06:25 | L&D Current Admission ---
Current Admit Datetime Report Generated by CPN: 03/26/2016 06:00 ADMISSION INFORMATION Current Admit Date/Time: 03/25/2016 11:32 (03/25/2016 11:32:Gustavo Almeida RN) Reason for Admission: Rupture of Membranes (03/25/2016 11:32:Gustavo Almeida RN) Chief Complaint: Contractions; Suspected Rupture of Membranes (03/25/2016 11:35:Shaye Weiss RN) EGA per Dates: 40.1 (03/25/2016 11:32:QS system process) Method of Arrival: Ambulatory (03/25/2016 11:32:Gustavo Almeida RN) Admitted From: Home (03/25/2016 11:32:Gustavo Almeida RN) Reason for Induction: Not Applicable (03/25/2016 11:32:Gustavo Almeida RN) Records Available: Yes (03/25/2016 11:32:Gustavo Almeida RN) General Admission Information: Reviewed; Updated; Confirmed (03/25/2016 11:32:Gustavo Almeida RN) General Admission Reviewed By: Colin Weiss RN (03/25/2016 11:32:Gustavo Almeida RN)
--- NOTE | 2016-03-26 07:01 | L&D Flow Sheet ---
LD Flowsheet Datetime Report Generated by CPN: 03/26/2016 07:00 Datetime: 03/25/2016 19:45 Pain Scale: 0 (Shaye Vitrano, RN) Pain Presence: None/Denies (Shaye Vitrano, RN) Pain Type: N/A (Shaye Vitrano, RN) Datetime: 03/25/2016 19:40 Stage of : Recovery (Shaye Vitrano, RN) Datetime: 03/25/2016 19:39 NBP Sys/Kalyn/Mean (mmHg): 113 (QS system process) : 75 (QS system process) : 89 (QS system process) Pulse: 99 (QS system process) Respirations: 16 (Shaye Vitrano, RN) Datetime: 03/25/2016 19:24 NBP Sys/Kalyn/Mean (mmHg): 121 (QS system process) : 86 (QS system process) : 98 (QS system process) Pulse: 103 (QS system process) Respirations: 16 (Shaye Vitrano, RN) Datetime: 03/25/2016 19:09 NBP Sys/Kalyn/Mean (mmHg): 124 (QS system process) : 80 (QS system process) : 99 (QS system process) Pulse: 94 (QS system process) Respirations: 16 (Shaye Weiss RN) Datetime: 03/25/2016 19:00 Stage of : Recovery (Shaye Weiss RN) Pain Scale: 0 (Shaye Weiss RN) Pain Presence: None/Denies (Shaye Weiss RN) Pain Type: N/A (Shaye Weiss RN)
[2016-03-26 07:59] LABS: HEMATOCRIT 29.3 % (36.0-47.0); HGB HCT DIFFERENCE -0.8; MEAN CORPUSCULAR HEMOGLOBIN 29.9 pg (27.0-33.4); MEAN CORPUSCULAR HGB CONC 32.4 g/dL (32.0-36.0); MEAN CORPUSCULAR VOLUME 92 fl (80-97); RED BLOOD COUNT 3.17 10^6/uL (3.72-5.28); RED CELL DISTRIBUTION WIDTH 13.4 % (11.5-14.0); WHITE BLOOD COUNT 11.5 10^3/uL (4.0-10.5)
[2016-03-26 08:06] LABS: HEMOGLOBIN 9.5 g/dL (12.0-15.5)
[2016-03-26] MEDS: SENNOSIDES/DOCUSATE 8.6-50 MG 1 EACH TABLET PO SCH (10:10)
[2016-03-26] MEDS: FERROUS SULFATE 325 MG TABLET PO SCH ×2 (10:10→18:24)
[2016-03-26] MEDS: DOCUSATE SODIUM 100 MG CAPSULE PO SCH ×2 (10:10→18:24)
[2016-03-26] MEDS: FAMOTIDINE 20 MG TABLET PO SCH ×2 (10:50→21:47)
--- NOTE | 2016-03-26 11:00 | PDOC PROGRESS REPORT ---
Subjective-OB Subjective: Post Delivery Day: 20 year old. Denies any needs at this time. Pt doing well, no concerns. Bleeding is light and she is voiding without difficulty. No concerns. Physical Exam (OB) Vital Signs: Temp Pulse Resp BP Pulse Ox 98.3 F 71 16 119/82 99 03/26/16 08:31 03/26/16 08:31 03/26/16 08:31 03/26/16 08:31 03/26/16 08:31 Intake & Output 03/25/16 03/26/16 03/27/16 06:59 06:59 06:59 Intake Total 500 Balance 500 Weight 60.5 kg - Lochia Lochia Amount: Small 10-25 ml Lochia Color: Rubra/Red - Abdomen Description: Tender, Soft Hernia Present: No Fundal Description: Firm, Midline Fundal Height: u/u - u/2 Objective-Diagnostic Laboratory: 03/26/16 07:45 03/25/16 03/25/16 03/26/16 12:11 12:11 07:45 WBC 9.1 11.5 H RBC 4.09 3.17 L Hgb 12.3 9.5 L D Hct 36.5 29.3 L MCV 89 92 MCH 30.0 29.9 MCHC 33.7 32.4 RDW 13.5 13.4 Plt Count 176 139 L Seg Neutrophils % 66.4 Lymphocytes % 25.3 Monocytes % 7.7 Eosinophils % 0.3 Basophils % 0.3 Absolute Neutrophils 6.0 Absolute Lymphocytes 2.3 Absolute Monocytes 0.7 Absolute Eosinophils 0.0 Absolute Basophils 0.0 Blood Type A NEGATIVE Antibody Screen POSITIVE Assessment and Plan(PN) - Assessment and Plan (1) Vaginal delivery Is this a current diagnosis for this admission?: Yes - Time Spent with Patient Time with patient: Less than 15 minutes Medications reviewed and adjusted accordingly: Yes - Disposition Anticipated Discharge: Home Within: within 24 hours
[2016-03-26] MEDS: PRENATAL VITAMIN W-O CA NO5/FE FUMARATE/FA CAPSULE PO SCH (11:23)
[2016-03-27] MEDS: ACETAMINOPHEN WITH CODEINE #3 TABLET PO PRN ×3 (02:37→12:29)
[2016-03-27] MEDS: IBUPROFEN 800 MG TABLET PO SCH ×2 (05:45→13:48)
--- NOTE | 2016-03-27 06:17 | L&D Current Admission ---
Current Admit Datetime Report Generated by CPN: 03/27/2016 06:00 ADMISSION INFORMATION Current Admit Date/Time: 03/25/2016 11:32 (03/25/2016 11:32:Gustavo Almeida RN) Reason for Admission: Rupture of Membranes (03/25/2016 11:32:Gustavo Almeida RN) Chief Complaint: Contractions; Suspected Rupture of Membranes (03/25/2016 11:35:Shaye Weiss RN) EGA per Dates: 40.1 (03/25/2016 11:32:QS system process) Method of Arrival: Ambulatory (03/25/2016 11:32:Gustavo Almeida RN) Admitted From: Home (03/25/2016 11:32:Gustavo Almeida RN) Reason for Induction: Not Applicable (03/25/2016 11:32:Gustavo Almeida RN) Records Available: Yes (03/25/2016 11:32:Gustavo Almeida RN) General Admission Information: Reviewed; Updated; Confirmed (03/25/2016 11:32:Gustavo Almeida RN) General Admission Reviewed By: Colin Weiss RN (03/25/2016 11:32:Gustavo Almeida RN)
--- NOTE | 2016-03-27 06:17 | L&D General Admission ---
General Admit Datetime Report Generated by CPN: 03/27/2016 06:00 INFORMATION Patient Age: 20 (02/16/2016 13:27:QS system process) EDC: 03/24/2016 00:00 (03/25/2016 03:20:Birgit Rangel RN) : 1 (03/25/2016 03:20:Birgit Rangel RN) Para: 0 (03/25/2016 05:11:Nitzavalerie Gonzalez) Term: 0 (03/25/2016 03:20:Birgit Rangel RN) : 0 (03/25/2016 03:20:Birgit Rangel RN) Spontaneous Abortions: 0 (03/25/2016 03:20:Birgit Rangel RN) Induced Abortions: 0 (03/25/2016 03:20:Birgit Rangel RN) Livin (03/25/2016 03:20:Birgit Rangel RN) Cesareans: 0 (03/25/2016 03:20:Shaye Weiss RN) VBACs: 0 (03/25/2016 03:20:Shaye Weiss RN) Ectopic: 0 (03/25/2016 03:20:Shaye Weiss RN) Multiple Births: 0 (03/25/2016 03:20:Shaye Weiss RN) Baby, Number in Womb: 1 (03/25/2016 05:11:Nitza Gonzalez) 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: [facility] (03/25/2016 03:20:Birgit Rangel RN) Month of 1st Visit: 08/19 (03/25/2016 03:20:Shaye Weiss RN) Adequate Care: Yes (03/25/2016 03:20:Shaye Weiss RN) Height (in): 62 (03/25/2016 20:38:QS system process) ALLERGIES Medication Allergy: No (03/25/2016 03:20:Nitza Gonzalez) Medication Allergies: No Known Allergies (03/25/2016) (03/25/2016 03:45:QS system process) Latex Allergy: No Latex Allergies (03/25/2016 03:20:Nitza Gonzalez) Food Allergies: none (03/25/2016 03:20:Nitza Gonzalez) Environmental Allergies: none (03/25/2016 03:20:Nitza Gonzalez) COMMUNICATION Primary Language: Kyrgyz (03/25/2016 03:20:Nitza Gonzalez) Medical Tx Preferred Language: Kyrgyz (03/25/2016 03:20:Nitza Gonzalez) DEMOGRAPHICS Address: [address] [place] [id number] (02/16/2016 13:27:QS system process) Zipcode: [address] (02/16/2016 13:27:QS system process) Home (02/16/2016 13:27:QS system process) N: [id number] (02/16/2016 13:27:QS system process) Next of Kin Name: JOJO MELGOZA (02/16/2016 13:27:QS system process) Next of Kin (02/16/2016 13:27:QS system process) Next of Kin Relationship: SPO (02/16/2016 13:27:QS system process) Date of : 1995 (02/16/2016 13:27:QS system process) Marital Status: (02/16/2016 13:27:QS system process) Sex: Female (02/16/2016 13:27:QS system process) Race: (02/16/2016 13:27:QS system process) Ethnicity: Non- or (02/16/2016 13:27:QS system process) Scientologist: Muslim (02/16/2016 13:27:QS system process) DRUG AND ALCOHOL USE Alcohol: No (03/25/2016 03:20:Nitza Gonzalez) Cigarettes: Never Smoker. 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: [facility] (03/25/2016 03:20:Shaye Weiss RN) Feeding Preference: Breast (03/25/2016 03:20:Nitza Gonzalez) Benefit of Breast Feed Discussed: Yes (03/25/2016 03:20:Shaye Weiss RN) Circumcision: Yes (03/25/2016 03:20:Nitza Gonzalez) Classes Attended: No (03/25/2016 03:20:Nitza Gonzalez) Tubal Ligation: No (03/25/2016 03:20:Nitza Gonzalez) Tubal Authorization Signed: N/A (03/25/2016 03:20:Nitza Gonzalez) Consent: N/A (03/25/2016 03:20:Nitza Gonzalez) Consent Signed: N/A (03/25/2016 03:20:Nitza Gonzalez) Pain Management Plans: Epidural (03/25/2016 03:20:Nitza Gonzalez) Plans for Labor and Delivery: None (03/25/2016 03:20:Nitza Gonzalez) Support Person: Jojo (03/25/2016 03:20:Nitza Gonzalez) Support Person Relationship: (03/25/2016 03:20:Nitza Gonzalez) Cultural/Spritual Practice: No (03/25/2016 03:20:Nitza Gonzalez) Spir/Cult Dietary Needs: No (03/25/2016 03:20:Nitzavalerie Gonzalez) LIVING SITUATION/DISCHARGE PLAN Living Arrangements: House (03/25/2016 03:20:Nitza Gonzalez) Adequate Access to:: Electric; Heat; Refrigeration; Plumbing/Running water; Phone; Transportation (03/25/2016 03:20:Nitza Gonzalez) WIC Program: No (03/25/2016 03:20:Nitza Gonzalez) Discharge Automotive Center Manager Person: jojo- (03/25/2016 03:20:Nitza Gonzalez) Person to Help after Discharge: jojo- (03/25/2016 03:20:Nitza Gonzalez) Currently Using Commun Resources: No (03/25/2016 03:20:Nitza Gonzalez) Outside Agency/Civil Estimator: No (03/25/2016 03:20:Nitza Gonzalez) Car Seat for Discharge: Yes (03/25/2016 03:20:Nitza Gonzalez) Adoption Requested: No (03/25/2016 03:20:Nitza Gonzalez) Pt Contact w/infant Post : N/A (03/25/2016 03:20:Nitzavalerie Gonzalez) LABS Blood Type: A Negative (03/25/2016 03:20:Birgit Rangel RN) Antibody Screen: negative (03/25/2016 03:20:Birgit Rangel RN) Rho(G) this : Yes (03/25/2016 03:20:Shaye Weiss RN) Date Rho(G) Given: 01/05/16 (03/25/2016 03:20:Shaye Weiss RN) Hemoglobin: 9.5 L (03/26/2016 07:45:QS system process) Hematocrit: 29.3 L (03/26/2016 07:45:QS system process) MCV: 92 (03/26/2016 07:45:QS system process) Group Beta Strep: negative (03/25/2016 03:20:Birgit Rangel RN) Gonorrhea: Negative (03/25/2016 03:20:Birgit Rangel RN) Chlamydia: Negative (03/25/2016 03:20:Birgit Rangel RN) RPR/VDRL: Nonreactive (03/25/2016 03:20:Birgit Rangel RN) HIV Exposure Test: Negative (03/25/2016 03:20:Shaye Weiss RN) HIV Results: nonreactive (03/25/2016 03:20:Birgit Rangel RN) Hepatitis B: Negative (03/25/2016 03:20:Birgit Rangel RN) Rubella: Immune (03/25/2016 03:20:Birgit Rangel RN) OB/PREVIOUS HISTORY Previous Procedures: None (03/25/2016 03:20:Nitza Gonzalez) Current Procedures: Ultrasound; NST (03/25/2016 03:20:Nitza Gonzalez) History of Previous : No (03/25/2016 03:20:Nitza Gonzalez) History of Gestational Diabetes: No (03/25/2016 03:20:Nitza Gonzalez) History of PIH: No (03/25/2016 03:20:Nitza Gonzalez) History of Incompetent Cervix: No (03/25/2016 03:20:Nitza Gonzalez) History of Placenta Previa/Abrup: No (03/25/2016 03:20:Nitza Gonzalez) History of Macrosomia: No (03/25/2016 03:20:Nitza Gonzalez) History of IUGR: No (03/25/2016 03:20:Nitza Gonzalez) History of Hemorrhage: No (03/25/2016 03:20:Nitza Gonzalez) History of Loss/Stillborn: No (03/25/2016 03:20:Nitza Gonzalez) History of : No (03/25/2016 03:20:Nitza Gonzalez) History of D (Rh) Sensitization: No (03/25/2016 03:20:Nitza Gonzalez) History Recurrent Loss/Stillborn: No (03/25/2016 03:20:Nitza Gonzalez) History Depression/PP Depression: No (03/25/2016 03:20:Nitza Gonzalez) History of Uterine Anomaly/DEVIN: No (03/25/2016 03:20:Nitza Gonzalez) History of Infertility: No (03/25/2016 03:20:Nitza Gonzalez) History of ART Treatment: No (03/25/2016 03:20:Nitza Gonzalez) History of DEVIN: No (03/25/2016 03:20:Nitza Gonzalez) Comments Obstetrical History: current 2016 (03/25/2016 03:20:Nitza Gonzalez) MEDICAL HISTORY Med Hx Diabetes: No (03/25/2016 03:20:Nitza Gonzalez) Med Hx Hypertension: No (03/25/2016 03:20:Nitza Gonzalez) Med Hx Heart Disease: No (03/25/2016 03:20:Nitza Gonzalez) Med Hx Autoimmune Disorder: No (03/25/2016 03:20:Nitza Gonzalez) Med Hx Kidney Disease/UTI: No (03/25/2016 03:20:Nitza Gonzalez) Med Hx Neurologic/Epilepsy: No (03/25/2016 03:20:Nitza Gonzalez) Med Hx Psychiatric Disorders: No (03/25/2016 03:20:Nitza Gonzalez) Med Hx Hepatitis/Liver Disease: No (03/25/2016 03:20:Nitza Gonzalez) Med Hx Varicosities/Phlebitis: No (03/25/2016 03:20:Nitza Gonzalez) Med Hx Thyroid Dysfunction: No (03/25/2016 03:20:Nitza Gonzalez) Med Hx Trauma/Violence: No (03/25/2016 03:20:Nitza Gonzalez) Med Hx Blood Transfusion: No (03/25/2016 03:20:Nitza Gonzalez) Med Hx Pulmonary (Asthma,TB): Yes (03/25/2016 03:20:Shaye Weiss RN) Med Hx Breast: No (03/25/2016 03:20:Nitza Gonzalez) Med Hx SERVICE COUNSELOR Surgery: No (03/25/2016 03:20:Nitza Gonzalez) Med Hx Hospitalization/Surgery: Yes (03/25/2016 03:20:Shaye Weiss RN) Med Hx Anesthetic Complications: No (03/25/2016 03:20:Nitza Gonzalez) Med Hx Abnormal Pap Smear: No (03/25/2016 03:20:Nitza Gonzalez) Other Medical Diseases: No (03/25/2016 03:20:Nitza Gonzalez) Med Hx Significant Family Hx: No (03/25/2016 03:20:Nitza Gonzalez) Details of Med/Surg Hx: Surgery: [place] teeth removed; Hip surgery bileratal hips for bone spurs and muscular tears (Annotations: Data stored by [facility] on behalf of user) (03/25/2016 03:20:Shaye Weiss RN) INFECTIOUS HISTORY Inf Hx Gonorrhea: No (03/25/2016 03:20:Nitza Gonzalez) Inf Hx Chlamydia: No (03/25/2016 03:20:Nitza Gonzalez) Inf Hx Syphilis: No (03/25/2016 03:20:Nitza Gonzalez) Inf Hx HIV/AIDS: No (03/25/2016 03:20:Nitza Gonzalez) Inf Hx Human Papilloma Virus: No (03/25/2016 03:20:Nitza Gonzalez) Inf Hx Pt/Partner Genital Herpes: No (03/25/2016 03:20:Nitza Gonzalez) Inf Hx Tuberculosis/Exposure: No (03/25/2016 03:20:Nitza Gonzalez) Inf Hx Hepatitis B,C: No (03/25/2016 03:20:Nitza Gonzalez) Inf Hx Rash or Viral Illness: No (03/25/2016 03:20:Nitza Gonzalez) GENETIC HISTORY Gen Hx Age >=35 at STEFFANY: No (03/25/2016 03:20:Nitza Gonzalez) Gen Hx Thalassemia: No (03/25/2016 03:20:Nitza Gonzalez) Gen Hx Congenital Heart Defect: No (03/25/2016 03:20:Nitza Gonzalez) Gen Hx Neural Tube Defect: No (03/25/2016 03:20:Nitza Gonzalez) Gen Hx Down's Syndrome: No (03/25/2016 03:20:Nitza Gonzalez) Gen Hx Jose Ramon-Sachs: No (03/25/2016 03:20:Nitza Gonzalez) Gen Hx Dea: No (03/25/2016 03:20:Nitza Gonzalez) Gen Hx Familial Dysautonomia: No (03/25/2016 03:20:Nitza Gonzalez) Gen Hx Sickle Cell Disease/Trait: No (03/25/2016 03:20:Nitza Gonzalez) Gen Hx Hemophilia/Blood Disorder: No (03/25/2016 03:20:Nitza Gonzalez) Gen Hx Muscular Dystrophy: No (03/25/2016 03:20:Nitza Gonzalez) Gen Hx Cystic Fibrosis: No (03/25/2016 03:20:Nitza Gonzalez) Gen Hx Huntingtons Chorea: No (03/25/2016 03:20:Nitza Gonzalez) Gen Hx Mental Retardation/Autism: No (03/25/2016 03:20:Nitza Gonzalez) Gen Hx Tested for Fragile X: No (03/25/2016 03:20:Nitza Gonzalez) Gen Hx Other Inher/Chromosomal: No (03/25/2016 03:20:Nitza Gonzalez) Gen Hx Maternal Metabolic DO: No (03/25/2016 03:20:Nitza Gonzalez) Gen Hx Pt Father or FOB Defect: No (03/25/2016 03:20:Nitza Gonzalez) Gen Hx Other Genetic History: No (03/25/2016 03:20:Nitza Gonzalez) Gen Hx Drugs/Meds since LMP: No (03/25/2016 03:20:Nitza Gonzalez)
--- NOTE | 2016-03-27 06:24 | L&D Care Plan ---
LD CARE PLANS Datetime Report Generated by CPN: 03/27/2016 06:15 Datetime: 03/25/2016 11:32 Pain State: Risk For (Gustavo Almeida RN) Related To: Labor and Delivery Process; Post (Gustavo Almeida RN) Goal(s): Patients Pain will be Assessed and Managed; Patient will Verbalize Adequate Relief of Pain or the Ability to [place] with Current Pain (Gustavo Almeida RN) Interventions: Assess Pain Severity on Scale of 0 (None) to 5 (Severe); Assess Type, Location and Intensity of Pain Each Time Client Reports Discomfort and Notify Provider if Unusal Pain Develops; Encourage Proper Breathing and Relaxation Techniques; Offer Alternatives Such as Repositioning, Calm Environment, Massages, Diversional Activities, Ice Pack, Splinting, and Ambulation; Administer Analgesics as Ordered; Assist with Epidural Placement as Appropriate; Evaluate Therapeutic Effectiveness of Medication and Treatments (Gustavo Almeida RN) Outcome: Patient will Report Absence or Relief of Pain Consistent with Established Pain Goal (Gustavo Almeida RN) Status: Ongoing (Gustavo Almeida RN) Outcome: Patient will have a Decrease in Signs and Symptoms of Discomfort (Gustavo Almeida RN) Status: Ongoing (Gustavo Almeida RN) Outcome: Pain will be Controlled During Procedures (Gustavo Almeida RN) Status: Ongoing (Gustavo Almeida RN) Anxiety State: Risk For (Gustavo Almeida RN) Related To: Labor and Delivery Process; Significant Life Event (Gustavo Almeida RN) Goal(s): Patient will have Decreased Anxiety and be able to Function at Acceptable Levels (Gustavo Almeida RN) Interventions: Assess Verbal and Nonverbal Behavioral Indicators of Anxiety; Assist Patient to Identify and Verbalize Symptoms of Anxiety; Identify and Demonstrate Techniques to Control Anxiety; Assist Patient with Coping Mechanisms to Manage Anxiety; Explain to Patient, Using a Calm Reassuring Approach and Nonmedical Terms, All Activities, Procedures, and Concerns; Instruct Patient and Family about Post Discharge Care, Limitations, Symptoms to Report and Resources Available (Gustavo Almeida RN) Outcome: Patient will Identify, Verbalize and Demonstrate Techniques to Control Anxiety (Gustavo Almeida RN) Status: Ongoing (Gustavo Almeida RN) Outcome: Patient's Posture, Facial Expressions, Gestures and Activity Level will Reflect Decreased Anxiety (Gustavo Almeida RN) Status: Ongoing (Gustavo Almeida RN) Outcome: Patient will Verbalize a Sense of Control and/or Acceptance of the Situation (Gustavo Almeida RN) Status: Ongoing (Gustavo Almeida RN) Outcome: Patient will Identify and Utilize Support Person (Gustavo Almeida RN) Status: Ongoing (Gustavo Almeida RN) Knowledge Deficit State: Risk For (Gustavo Almeida RN) Related To: Labor and Delivery Process (Gustavo Almeida RN) Goal(s): Patient will Accurately Verbalize Understanding of Plan of Care and Treatment; Patient and Family will Accurately Verbalize Understanding of the Disease Process (Gustavo Almeida RN) Interventions: Assess Motivation and Willingness of Patient/Family to Learn; Assess Preferred Learning Mode: One to One Instruction, Reading, Videos, Group Discussion or Demonstration; Assess Barriers to Learning: Pain, Emotional State, Language Barrier, Cognitive Impairment, Visual or Hearing Deficits; Assess Patient and Family Knowledge of Disease Process, Medications and Treatment; Discuss Therapy and/or Treatment Options, Describe Rationale Behind Management, Therapy and Treatment Recommendations; Instruct Patient and Family on Signs and Symptoms to Report; Instruct Patient and Family on Medication Effects and Side Effects; Provide Appropriate and Timely Education Using Multiple Techniques; Provide Patient and Family with Support Group Information and Resources; Give Clear and Thorough Explanations and Demonstrations (Gustavo Almeida RN) Outcome: Patient and Family will Verbalize Understanding of Condition, Treatment and Signs and Symptoms to Report (Gustavo Almeida RN) Status: Ongoing (Gustavo Almeida RN) Outcome: Patient will Identify Perceived Learning Needs and Express Motivation to Learn (Gustavo Almeida RN) Status: Ongoing (Gustavo Almeida RN) Outcome: Patient will Verbalize Understanding of Desired Content, and/or Performs Desired Skill Prior to Discharge (Gustavo Almeida RN) Status: Ongoing (Gustavo Almeida RN) Infection State: Risk For (Gustavo Almeida RN) Related To: Invasive Procedures (Gustavo Almeida RN) Goal(s): The Patient will be Free of Infection, Vital Signs Stable and Lab Work within Normal Parameters (Gustavo Almeida RN) Interventions: Instruct and Reinforce Proper Handwashing, Hygiene, and Care Techniques to Patient and Family; Monitor Vital Signs; Monitor Patient for the Following Signs of Infection: Fever, Abdominal Tenderness, Unusual Discharge; Monitor Aminiotic Fluid, Urine and Lochia for Color and Odor; Observe Wounds, Incisions and Invasive Line Sites for Redness, Drainage and Edema; Assess IV Sites per Hospital Policy; Monitor Lab and Test Results and Notify Provider of Abnormal Findings; Assess Nutritional Status and Promote Good Nutrition (Gustavo Almeida RN) Outcome: Patient will Remain Free of Infection (Gustavo Almeida RN) Status: Ongoing (Gustavo Almeida RN) Outcome: Infection will be Recognized Early to Allow for Prompt Treatment (Gustavo Almeida RN) Status: Ongoing (Gustavo Almeida RN) Outcome: Patient will have Vital Signs Within Expected Range (Gustavo Almeida RN) Status: Ongoing (Gustavo Almeida RN) Fluid Volume State: Risk For (Gustavo Almeida RN) Related To: Gestational Hypertension (Gustavo Almeida RN) Goal(s): Patient will Achieve and Maintain a Balanced Fluid Volume Status; Hemodynamically Stable (Gustavo Almeida RN) Interventions: Monitor Vital Signs; Auscultate Breath Sounds; Monitor Patient for Skin Turgor, Mucous Membranes, Dry Skin, Weakness, Headaches and Confusion; Provide Oral Fluids as Ordered; Initiate and Maintain Intravenous Fluids as Ordered; Monitor Intake and Output as Indicated Per Patient Status; Accurately Measure Blood Loss; Monitor Lab and Test Results as Obtained and Notify Provider of Abnormal Findings; Monitor Patient's Weight (Gustavo Almeida RN) Outcome: Patient will have Clear Lung Sounds (Gustavo Almeida RN) Status: Ongoing (Gustavo Almeida RN) Outcome: Patient will have Vital Signs within Expected Range (Gustavo Almeida RN) Status: Ongoing (Gustavo Almeida RN) Outcome: Urine Output will be within Expected Range (Gustavo Almeida RN) Status: Ongoing (Gustavo Almeida RN) Outcome: Patient will have Minimal Generalized or Upper Extremity Edema (Gustavo Almeida RN) Status: Ongoing (Gustavo Almeida RN) Injury State: Risk For (Gustavo Almeida RN) Related To: Labor and Delivery Process; Gestational Hypertension or Eclampsia (Gustavo Almeida RN) Goal(s): Patient will Remain Free from Injury (Gustavo Almeida RN) Interventions: Monitoring as per Hospital Protocol; Assess Neurological Status; Perform Risk Assessment of Patients with Induction and ; Perform Fall Risk Assessment and Prevention per Hospital Protocol; Perform DVT Risk Assessment and Prophylaxis per Hospital Protocol; Ensure that Oxygen, Suction, and Resuscitation Medications and Equipment are Readily Available; Confirm Patient ID Prior to Procedure(s) and Medication Administration per Hospital Policy (Gustavo Almeida RN) Outcome: Successful Fall Risk Prevention (Gustavo Almeida RN) Status: Ongoing (Gustavo Almeida RN) Outcome: Patient will Deliver without Adverse Sequela (Gustavo Almeida RN) Status: Ongoing (Gustavo Almeida RN) Outcome: Patient's Neurological Status will Remain Stable (Gustavo Almeida RN) Status: Ongoing (Gustavo Almeida RN) Impaired Skin Integrity State: Risk For (Gustavo Almeida RN) Related To: Vaginal Delivery; Invasive Procedures (Gustavo Almeida RN) Goal(s): Patient will Maintain Optimal Skin Integrity, Free of Breakdown, Injury or Infection (Gustavo Almeida RN) Interventions: Complete Screening for Pressure Ulcer Risk and Initiate Protocol per Hospital Policy; Monitor Site of Skin Impairment for Color Changes, Redness, Swelling, Warmth, Pain or Other Signs of Infection; Encourage and Assist with Position Changes; Monitor Patient's Mobility Status; Provide Adequate Nutrition and Fluids; Teach Patient Appropriate Hygienic Care; Teach Patient/Family Skin Care Management (Gustavo Almeida RN) Outcome: Patient will not have Evidence of Injury Such as Skin Breakdown, Scrapes, Cuts, or Bruising (Gustavo Almeida RN) Status: Ongoing (Gustavo Almeida RN) Outcome: Patient will Report Any Altered Sensation or Pain at Site of Skin Impairment (Gustavo Almeida RN) Status: Ongoing (Gustavo Almeida RN) Outcome: Patients Incisions and Wounds will be without Signs or Symptoms of Infection (Gustavo Almeida RN) Status: Ongoing (Gustavo Almeida RN) Outcome: Patient will Demonstrate Understanding of Plan to Heal Skin and Prevent Reinjury and Verbalize Risk Factors (Gustavo Almeida RN) Status: Ongoing (Gustavo Almeida RN)
[2016-03-27] MEDS: DOCUSATE SODIUM 100 MG CAPSULE PO SCH (10:17)
[2016-03-27] MEDS: PRENATAL VITAMIN W-O CA NO5/FE FUMARATE/FA CAPSULE PO SCH (10:17)
[2016-03-27] MEDS: SENNOSIDES/DOCUSATE 8.6-50 MG 1 EACH TABLET PO SCH (10:17)
[2016-03-27] MEDS: FERROUS SULFATE 325 MG TABLET PO SCH (10:17)
[2016-03-27] MEDS: FAMOTIDINE 20 MG TABLET PO SCH (10:18)
[2016-03-27 10:51] VITALS: BP 111/67
--- NOTE | 2016-03-27 11:05 | PDOC DISCHARGE SUMMARY ---
Discharge Summary-OB Discharge Date: 03/27/16 - Final Diagnosis (1) Vaginal delivery Is this a current diagnosis for this admission?: Yes - Discharge Medication Home Medications: Vit/Iron Fumarate/FA [ Tablet] 1 tab PO DAILY 03/25/16 Reason(s) for Admission: Onset of Labor Procedures: NST Intrapartum Procedure(s): Spontaneous Vaginal Delivery Complication(s): Laceration-Vaginal, Laceration-Perineal Laceration-Degree: 1st - Diagnosis Test Laboratory: Temp Pulse Resp BP Pulse Ox 97.7 F 73 16 111/67 99 03/27/16 09:43 03/27/16 09:43 03/27/16 09:43 03/27/16 09:43 03/27/16 09:43 03/25/16 03/26/16 12:11 07:45 RBC 4.09 3.17 L Hgb 12.3 9.5 L D Hct 36.5 29.3 L - Discharge information/Instructions Discharge Activity: Activity As Tolerated, Pelvic Rest Discharge Diet: Regular Disposition: HOME, SELF-CARE Follow [facility] with: [facility] in: 4, Weeks
--- NOTE | 2016-03-28 06:16 | L&D General Admission ---
General Admit Datetime Report Generated by CPN: 03/28/2016 06:00 INFORMATION Patient Age: 20 (02/16/2016 13:27:QS system process) EDC: 03/24/2016 00:00 (03/25/2016 03:20:Birgit Rangel RN) : 1 (03/25/2016 03:20:Birgit Rangel RN) Para: 0 (03/25/2016 05:11:Nitzavalerie Gonzalez) Term: 0 (03/25/2016 03:20:Birgit Rangel RN) : 0 (03/25/2016 03:20:Birgit Rangel RN) Spontaneous Abortions: 0 (03/25/2016 03:20:Birgit Rangel RN) Induced Abortions: 0 (03/25/2016 03:20:Birgit Rangel RN) Livin (03/25/2016 03:20:Birgit Rangel RN) Cesareans: 0 (03/25/2016 03:20:Shaye Weiss RN) VBACs: 0 (03/25/2016 03:20:Shaye Weiss RN) Ectopic: 0 (03/25/2016 03:20:Shaye Weiss RN) Multiple Births: 0 (03/25/2016 03:20:Shaye Weiss RN) Baby, Number in Womb: 1 (03/25/2016 05:11:Nitza Gonzalez) CARE Primary Medical Supply Technician: [facility] (03/25/2016 03:20:Birgit Rangel RN) Month of 1st Visit: 08/19 (03/25/2016 03:20:Shaye Weiss RN) Adequate Care: Yes (03/25/2016 03:20:Shaye Weiss RN) Height (in): 62 (03/27/2016 11:05:QS system process) ALLERGIES Medication Allergy: No (03/25/2016 03:20:Nitza Gonzalez) Medication Allergies: No Known Allergies (03/25/2016) (03/25/2016 03:45:QS system process) Latex Allergy: No Latex Allergies (03/25/2016 03:20:Nitza Gonzalez) Food Allergies: none (03/25/2016 03:20:Nitza Gonzalez) Environmental Allergies: none (03/25/2016 03:20:Nitza Gonzalez) COMMUNICATION Primary Language: Ivorian (03/25/2016 03:20:Nitza Gonzalez) Medical Tx Preferred Language: Ivorian (03/25/2016 03:20:Nitza Gonzalez) DEMOGRAPHICS Address: [address] [place] [id number] (02/16/2016 13:27:QS system process) Zipcode: [address] (02/16/2016 13:27:QS system process) Home (02/16/2016 13:27:QS system process) N: [id number] (02/16/2016 13:27:QS system process) Next of Kin Name: JOJO MELGOZA (02/16/2016 13:27:QS system process) Next of Kin (02/16/2016 13:27:QS system process) Next of Kin Relationship: SPO (02/16/2016 13:27:QS system process) Date of : 1995 (02/16/2016 13:27:QS system process) Marital Status: (02/16/2016 13:27:QS system process) Sex: Female (02/16/2016 13:27:QS system process) Race: (02/16/2016 13:27:QS system process) Ethnicity: Non- or (02/16/2016 13:27:QS system process) Zoroastrian: Mandaen (02/16/2016 13:27:QS system process) DRUG AND ALCOHOL USE Alcohol: No (03/25/2016 03:20:Nitza Gonzalez) Cigarettes: Never Smoker. [id number] (03/25/2016 03:20:Nitza Gonzalez) Marijuana: No (03/25/2016 03:20:Nitza Gonzalez) Cocaine: No (03/25/2016 03:20:Nitza Gonzalez) Other Illicit Drugs: No (03/25/2016 03:20:Nitza Gonzalez) VACCINE HISTORY Influenza Vaccine: Yes (03/25/2016 03:20:Nitza Gonzalez) Influenza Date: 2015 (03/25/2016 03:20:Nitza Gonzalez) Pneumococcal Vaccine: No (03/25/2016 03:20:Nitza Gonzalez) Tetanus Vaccine: No (03/25/2016 03:20:Nitza Gonzalez) Tdap Vaccine: Yes (03/25/2016 03:20:Nitza Gonzalez) Tdap Date: 2015 (03/25/2016 03:20:Nitza Gonzalez) Hepatitis B Vaccine: No (03/25/2016 03:20:Nitza Gonzalez) Kettle Cook: [facility] (03/25/2016 03:20:Shaye Weiss RN) Feeding Preference: Breast (03/25/2016 03:20:Nitza Gonzalez) Benefit of Breast Feed Discussed: Yes (03/25/2016 03:20:Shaye Weiss RN) Circumcision: Yes (03/25/2016 03:20:Nitza Gonzalez) Classes Attended: No (03/25/2016 03:20:Nitza Gonzalez) Tubal Ligation: No (03/25/2016 03:20:Nitza Gonzalez) Tubal Authorization Signed: N/A (03/25/2016 03:20:Nitza Gonzalez) Consent: N/A (03/25/2016 03:20:Nitza Gonzalez) Consent Signed: N/A (03/25/2016 03:20:Nitza Gonzalez) Pain Management Plans: Epidural (03/25/2016 03:20:Nitza Gonzalez) Plans for Labor and Delivery: None (03/25/2016 03:20:Nitza Gonzalez) Support Person: Jojo (03/25/2016 03:20:Nitza Gonzalez) Support Person Relationship: (03/25/2016 03:20:Nitza Gonzalez) Cultural/Spritual Practice: No (03/25/2016 03:20:Nitza Gonzalez) Spir/Cult Dietary Needs: No (03/25/2016 03:20:Nitzavalerie Gonzalez) LIVING SITUATION/DISCHARGE PLAN Living Arrangements: House (03/25/2016 03:20:Nitza Gonzalez) Adequate Access to:: Electric; Heat; Refrigeration; Plumbing/Running water; Phone; Transportation (03/25/2016 03:20:Nitza Gonzalez) WIC Program: No (03/25/2016 03:20:Nitza Gonzalez) Discharge Trench Digger Person: jojo- (03/25/2016 03:20:Nitza Gonzalez) Person to Help after Discharge: jojo- (03/25/2016 03:20:Nitza Gonzalez) Currently Using Commun Resources: No (03/25/2016 03:20:Nitza Gonzalez) Outside Agency/Accordion Repairer: No (03/25/2016 03:20:Nitza Gonzalez) Car Seat for Discharge: Yes (03/25/2016 03:20:Nitza Gonzalez) Adoption Requested: No (03/25/2016 03:20:Nitza Gonzalez) Pt Contact w/infant Post : N/A (03/25/2016 03:20:Nitzavalerie Gonzalez) LABS Blood Type: A Negative (03/25/2016 03:20:Birgit Rangel RN) Antibody Screen: negative (03/25/2016 03:20:Birgit Rangel RN) Rho(G) this : Yes (03/25/2016 03:20:Shaye Weiss RN) Date Rho(G) Given: 01/05/16 (03/25/2016 03:20:Shaye Weiss RN) Hemoglobin: 9.5 L (03/26/2016 07:45:QS system process) Hematocrit: 29.3 L (03/26/2016 07:45:QS system process) MCV: 92 (03/26/2016 07:45:QS system process) Group Beta Strep: negative (03/25/2016 03:20:Birgit Rangel RN) Gonorrhea: Negative (03/25/2016 03:20:Birgit Rangel RN) Chlamydia: Negative (03/25/2016 03:20:Birgit Rangel RN) RPR/VDRL: Nonreactive (03/25/2016 03:20:Birgit Rangel RN) HIV Exposure Test: Negative (03/25/2016 03:20:Shaye Weiss RN) HIV Results: nonreactive (03/25/2016 03:20:Birgit Rangel RN) Hepatitis B: Negative (03/25/2016 03:20:Birgit Rangel RN) Rubella: Immune (03/25/2016 03:20:Birgit Rangel RN) OB/PREVIOUS HISTORY Previous Procedures: None (03/25/2016 03:20:Nitza Gonzalez) Current Procedures: Ultrasound; NST (03/25/2016 03:20:Nitza Gonzalez) History of Previous : No (03/25/2016 03:20:Nitza Gonzalez) History of Gestational Diabetes: No (03/25/2016 03:20:Nitza Gonzalez) History of PIH: No (03/25/2016 03:20:Nitza Gonzalez) History of Incompetent Cervix: No (03/25/2016 03:20:Nitza Gonzalez) History of Placenta Previa/Abrup: No (03/25/2016 03:20:Nitza Gonzalez) History of Macrosomia: No (03/25/2016 03:20:Nitza Gonzalez) History of IUGR: No (03/25/2016 03:20:Nitza Gonzalez) History of Hemorrhage: No (03/25/2016 03:20:Nitza Gonzalez) History of Loss/Stillborn: No (03/25/2016 03:20:Nitza Gonzalez) History of : No (03/25/2016 03:20:Nitza Gonzalez) History of D (Rh) Sensitization: No (03/25/2016 03:20:Nitza Gonzalez) History Recurrent Loss/Stillborn: No (03/25/2016 03:20:Nitza Gonzalez) History Depression/PP Depression: No (03/25/2016 03:20:Nitza Gonzalez) History of Uterine Anomaly/DEVIN: No (03/25/2016 03:20:Nitza Gonzalez) History of Infertility: No (03/25/2016 03:20:Nitza Gonzalez) History of ART Treatment: No (03/25/2016 03:20:Nitza Gonzalez) History of DEVIN: No (03/25/2016 03:20:Nitza Gonzalez) Comments Obstetrical History: current 2016 (03/25/2016 03:20:Nitza Gonzalez) MEDICAL HISTORY Med Hx Diabetes: No (03/25/2016 03:20:Nitza Gonzalez) Med Hx Hypertension: No (03/25/2016 03:20:Nitza Gonzalez) Med Hx Heart Disease: No (03/25/2016 03:20:Nitza Gonzalez) Med Hx Autoimmune Disorder: No (03/25/2016 03:20:Nitza Gonzalez) Med Hx Kidney Disease/UTI: No (03/25/2016 03:20:Nitza Gonzalez) Med Hx Neurologic/Epilepsy: No (03/25/2016 03:20:Nitza Gonzalez) Med Hx Psychiatric Disorders: No (03/25/2016 03:20:Nitza Gonzalez) Med Hx Hepatitis/Liver Disease: No (03/25/2016 03:20:Nitza Gonzalez) Med Hx Varicosities/Phlebitis: No (03/25/2016 03:20:Nitza Gonzalez) Med Hx Thyroid Dysfunction: No (03/25/2016 03:20:Nitza Gonzalez) Med Hx Trauma/Violence: No (03/25/2016 03:20:Nitza Gonzalez) Med Hx Blood Transfusion: No (03/25/2016 03:20:Nitza Gonzalez) Med Hx Pulmonary (Asthma,TB): Yes (03/25/2016 03:20:Shaye Weiss RN) Med Hx Breast: No (03/25/2016 03:20:Nitza Gonzalez) Med Hx SALES ACCOUNT SPECIALIST Surgery: No (03/25/2016 03:20:Nitza Gonzalez) Med Hx Hospitalization/Surgery: Yes (03/25/2016 03:20:Shaye Weiss RN) Med Hx Anesthetic Complications: No (03/25/2016 03:20:Nitza Gonzalez) Med Hx Abnormal Pap Smear: No (03/25/2016 03:20:Nitza Gonzalez) Other Medical Diseases: No (03/25/2016 03:20:Nitza Gonzalez) Med Hx Significant Family Hx: No (03/25/2016 03:20:Nitza Gonzalez) Details of Med/Surg Hx: Surgery: [place] teeth removed; Hip surgery bileratal hips for bone spurs and muscular tears (Annotations: Data stored by [facility] on behalf of user) (03/25/2016 03:20:Shaye Weiss RN) INFECTIOUS HISTORY Inf Hx Gonorrhea: No (03/25/2016 03:20:Nitza Gonzalez) Inf Hx Chlamydia: No (03/25/2016 03:20:Nitza Gonzalez) Inf Hx Syphilis: No (03/25/2016 03:20:Nitza Gonzalez) Inf Hx HIV/AIDS: No (03/25/2016 03:20:Nitza Gonzalez) Inf Hx Human Papilloma Virus: No (03/25/2016 03:20:Nitza Gonzalez) Inf Hx Pt/Partner Genital Herpes: No (03/25/2016 03:20:Nitza Gonzalez) Inf Hx Tuberculosis/Exposure: No (03/25/2016 03:20:Nitza Gnozalez) Inf Hx Hepatitis B,C: No (03/25/2016 03:20:Nitza Gonzalez) Inf Hx Rash or Viral Illness: No (03/25/2016 03:20:Nitza Gonzalez) GENETIC HISTORY Gen Hx Age >=35 at STEFFANY: No (03/25/2016 03:20:Nitza Gonzalez) Gen Hx Thalassemia: No (03/25/2016 03:20:Nitza Gonzalez) Gen Hx Congenital Heart Defect: No (03/25/2016 03:20:Nitza Gonzalez) Gen Hx Neural Tube Defect: No (03/25/2016 03:20:Nitza Gonzalez) Gen Hx Down's Syndrome: No (03/25/2016 03:20:Nitza Gonzalez) Gen Hx Jose Ramon-Sachs: No (03/25/2016 03:20:Nitza Gonzalez) Gen Hx Dea: No (03/25/2016 03:20:Nitza Gonzalez) Gen Hx Familial Dysautonomia: No (03/25/2016 03:20:Nitza Gonzalez) Gen Hx Sickle Cell Disease/Trait: No (03/25/2016 03:20:Nitza Gonzalez) Gen Hx Hemophilia/Blood Disorder: No (03/25/2016 03:20:Nitza Gonzalez) Gen Hx Muscular Dystrophy: No (03/25/2016 03:20:Nitza Gonzalez) Gen Hx Cystic Fibrosis: No (03/25/2016 03:20:Nitza Gonzalez) Gen Hx Huntingtons Chorea: No (03/25/2016 03:20:Nitza Gonzalez) Gen Hx Mental Retardation/Autism: No (03/25/2016 03:20:Nitza Gonzalez) Gen Hx Tested for Fragile X: No (03/25/2016 03:20:Nitza Gonzalez) Gen Hx Other Inher/Chromosomal: No (03/25/2016 03:20:Nitza Gonzalez) Gen Hx Maternal Metabolic DO: No (03/25/2016 03:20:Nitza Gonzalez) Gen Hx Pt Father or FOB Defect: No (03/25/2016 03:20:Nitza Gonzalez) Gen Hx Other Genetic History: No (03/25/2016 03:20:Nitza Gonzalez) Gen Hx Drugs/Meds since LMP: No (03/25/2016 03:20:Nitza Gonzalez)
--- NOTE | 2016-03-28 06:16 | L&D Current Admission ---
Current Admit Datetime Report Generated by CPN: 03/28/2016 06:00 ADMISSION INFORMATION Current Admit Date/Time: 03/25/2016 11:32 (03/25/2016 11:32:Gustavo Almeida RN) Reason for Admission: Rupture of Membranes (03/25/2016 11:32:Gustavo Almeida RN) Chief Complaint: Contractions; Suspected Rupture of Membranes (03/25/2016 11:35:Shaye Weiss RN) EGA per Dates: 40.1 (03/25/2016 11:32:QS system process) Method of Arrival: Ambulatory (03/25/2016 11:32:Gustavo Almeida RN) Admitted From: Home (03/25/2016 11:32:Gustavo Almeida RN) Reason for Induction: Not Applicable (03/25/2016 11:32:Gustavo Almeida RN) Records Available: Yes (03/25/2016 11:32:Gustavo Almeida RN) General Admission Information: Reviewed; Updated; Confirmed (03/25/2016 11:32:Gustavo Almeida RN) General Admission Reviewed By: Colin Weiss RN (03/25/2016 11:32:Gustavo Almieda RN)
--- NOTE | 2016-03-29 06:17 | L&D General Admission ---
General Admit Datetime Report Generated by CPN: 03/29/2016 06:00 INFORMATION Patient Age: 20 (02/16/2016 13:27:QS system process) EDC: 03/24/2016 00:00 (03/25/2016 03:20:Birgit Rangel RN) : 1 (03/25/2016 03:20:Birgit Rangel RN) Para: 0 (03/25/2016 05:11:Nitzavalerie Gonzalez) Term: 0 (03/25/2016 03:20:Birgit Rangel RN) : 0 (03/25/2016 03:20:Birgit Rangel RN) Spontaneous Abortions: 0 (03/25/2016 03:20:Birgit Rangel RN) Induced Abortions: 0 (03/25/2016 03:20:Birgit Rangel RN) Livin (03/25/2016 03:20:Birgit Rangel RN) Cesareans: 0 (03/25/2016 03:20:Shaye Weiss RN) VBACs: 0 (03/25/2016 03:20:Shaye Weiss RN) Ectopic: 0 (03/25/2016 03:20:Shaye Weiss RN) Multiple Births: 0 (03/25/2016 03:20:Shaye Weiss RN) Baby, Number in Womb: 1 (03/25/2016 05:11:Nitza Gonzalez) CARE Primary Filler Operator: [facility] (03/25/2016 03:20:Birgit Rangel RN) Month of 1st Visit: 08/19 (03/25/2016 03:20:Shaye Weiss RN) Adequate Care: Yes (03/25/2016 03:20:Shaye Weiss RN) Height (in): 62 (03/27/2016 11:05:QS system process) ALLERGIES Medication Allergy: No (03/25/2016 03:20:Nitza Gonzalez) Medication Allergies: No Known Allergies (03/25/2016) (03/25/2016 03:45:QS system process) Latex Allergy: No Latex Allergies (03/25/2016 03:20:Nitza Gonzalez) Food Allergies: none (03/25/2016 03:20:Nitza Gonzalez) Environmental Allergies: none (03/25/2016 03:20:Nitza Gonzalez) COMMUNICATION Primary Language: Comoran (03/25/2016 03:20:Nitza Gonzalez) Medical Tx Preferred Language: Comoran (03/25/2016 03:20:Nitza Gonzalez) DEMOGRAPHICS Address: [address] [place] [id number] (02/16/2016 13:27:QS system process) Zipcode: [phone] (02/16/2016 13:27:QS system process) Home (02/16/2016 13:27:QS system process) N: [phone] (02/16/2016 13:27:QS system process) Next of Kin Name: JOJO MELGOZA (02/16/2016 13:27:QS system process) Next of Kin (02/16/2016 13:27:QS system process) Next of Kin Relationship: SPO (02/16/2016 13:27:QS system process) Date of : 1995 (02/16/2016 13:27:QS system process) Marital Status: (02/16/2016 13:27:QS system process) Sex: Female (02/16/2016 13:27:QS system process) Race: (02/16/2016 13:27:QS system process) Ethnicity: Non- or (02/16/2016 13:27:QS system process) Pentecostal: Mandaeism (02/16/2016 13:27:QS system process) DRUG AND ALCOHOL USE Alcohol: No (03/25/2016 03:20:Nitza Gonzalez) Cigarettes: Never Smoker. [id number] (03/25/2016 03:20:Nitza Gonzalez) Marijuana: No (03/25/2016 03:20:Nitza Gonzalez) Cocaine: No (03/25/2016 03:20:Nitza Gonzalez) Other Illicit Drugs: No (03/25/2016 03:20:Nitza Gonzalez) VACCINE HISTORY Influenza Vaccine: Yes (03/25/2016 03:20:Nitza Gonzalez) Influenza Date: 2015 (03/25/2016 03:20:Nitza Gonzalez) Pneumococcal Vaccine: No (03/25/2016 03:20:Nitza Gonzalez) Tetanus Vaccine: No (03/25/2016 03:20:Nitza Gonzalez) Tdap Vaccine: Yes (03/25/2016 03:20:Nitza Gonzalez) Tdap Date: 2015 (03/25/2016 03:20:Nitza Gonzalez) Hepatitis B Vaccine: No (03/25/2016 03:20:Nitza Gonzalez) Porcelain Enamel Laborer: [facility] (03/25/2016 03:20:Shaye Weiss RN) Feeding Preference: Breast (03/25/2016 03:20:Nitza Gonzalez) Benefit of Breast Feed Discussed: Yes (03/25/2016 03:20:Shaye Weiss RN) Circumcision: Yes (03/25/2016 03:20:Nitza Gonzalez) Classes Attended: No (03/25/2016 03:20:Nitza Gonzalez) Tubal Ligation: No (03/25/2016 03:20:Nitza Gonzalez) Tubal Authorization Signed: N/A (03/25/2016 03:20:Nitza Gonzalez) Consent: N/A (03/25/2016 03:20:Nitza Gonzalez) Consent Signed: N/A (03/25/2016 03:20:Nitza Gonzalez) Pain Management Plans: Epidural (03/25/2016 03:20:Nitza Gonzalez) Plans for Labor and Delivery: None (03/25/2016 03:20:Nitza Gonzalez) Support Person: Jojo (03/25/2016 03:20:Nitza Gonzalez) Support Person Relationship: (03/25/2016 03:20:Nitza Gonzalez) Cultural/Spritual Practice: No (03/25/2016 03:20:Nitza Gonzalez) Spir/Cult Dietary Needs: No (03/25/2016 03:20:Nitzavalerie Gonzalez) LIVING SITUATION/DISCHARGE PLAN Living Arrangements: House (03/25/2016 03:20:Nitza Gonzalez) Adequate Access to:: Electric; Heat; Refrigeration; Plumbing/Running water; Phone; Transportation (03/25/2016 03:20:Nitza Gonzalez) WIC Program: No (03/25/2016 03:20:Nitza Gonzalez) Discharge Sales Development Consultant Person: jojo- (03/25/2016 03:20:Nitza Gonzalez) Person to Help after Discharge: jojo- (03/25/2016 03:20:Nitza Gonzalez) Currently Using Commun Resources: No (03/25/2016 03:20:Nitza Gonzalez) Outside Agency/Cnc Lathe Machinist: No (03/25/2016 03:20:Nitza Gonzalez) Car Seat for Discharge: Yes (03/25/2016 03:20:Nitza Gonzalez) Adoption Requested: No (03/25/2016 03:20:Nitza Gonzalez) Pt Contact w/infant Post : N/A (03/25/2016 03:20:Nitzavalerie Gonzalez) LABS Blood Type: A Negative (03/25/2016 03:20:Birgit Rangel RN) Antibody Screen: negative (03/25/2016 03:20:Birgit Rangel RN) Rho(G) this : Yes (03/25/2016 03:20:Shaye Weiss RN) Date Rho(G) Given: 01/05/16 (03/25/2016 03:20:Shaye Weiss RN) Hemoglobin: 9.5 L (03/26/2016 07:45:QS system process) Hematocrit: 29.3 L (03/26/2016 07:45:QS system process) MCV: 92 (03/26/2016 07:45:QS system process) Group Beta Strep: negative (03/25/2016 03:20:Birgit Rangel RN) Gonorrhea: Negative (03/25/2016 03:20:Birgit Rangel RN) Chlamydia: Negative (03/25/2016 03:20:Birgit Rangel RN) RPR/VDRL: Nonreactive (03/25/2016 03:20:Birgit Rangel RN) HIV Exposure Test: Negative (03/25/2016 03:20:Shaye Weiss RN) HIV Results: nonreactive (03/25/2016 03:20:Birgit Rangel RN) Hepatitis B: Negative (03/25/2016 03:20:Birgit Rangel RN) Rubella: Immune (03/25/2016 03:20:Birgit Rangel RN) OB/PREVIOUS HISTORY Previous Procedures: None (03/25/2016 03:20:Nitza Gonzalez) Current Procedures: Ultrasound; NST (03/25/2016 03:20:Nitza Gonzalez) History of Previous : No (03/25/2016 03:20:Nitza Gonzalez) History of Gestational Diabetes: No (03/25/2016 03:20:Nitza Gonzalez) History of PIH: No (03/25/2016 03:20:Nitza Gonzalez) History of Incompetent Cervix: No (03/25/2016 03:20:Nitza Gonzalez) History of Placenta Previa/Abrup: No (03/25/2016 03:20:Nitza Gonzalez) History of Macrosomia: No (03/25/2016 03:20:Nitza Gonzalez) History of IUGR: No (03/25/2016 03:20:Nitza Gonzalez) History of Hemorrhage: No (03/25/2016 03:20:Nitza Gonzalez) History of Loss/Stillborn: No (03/25/2016 03:20:Nitza Gonzalez) History of : No (03/25/2016 03:20:Nitza Gonzalez) History of D (Rh) Sensitization: No (03/25/2016 03:20:Nitza Gonzalez) History Recurrent Loss/Stillborn: No (03/25/2016 03:20:Nitza Gonzalez) History Depression/PP Depression: No (03/25/2016 03:20:Nitza Gonzalez) History of Uterine Anomaly/DEVIN: No (03/25/2016 03:20:Nitza Gonzalez) History of Infertility: No (03/25/2016 03:20:Nitza Gonzalez) History of ART Treatment: No (03/25/2016 03:20:Nitza Gonzalez) History of DEVIN: No (03/25/2016 03:20:Nitza Gonzalez) Comments Obstetrical History: current 2016 (03/25/2016 03:20:Nitza Gonzalez) MEDICAL HISTORY Med Hx Diabetes: No (03/25/2016 03:20:Nitza Gonzalez) Med Hx Hypertension: No (03/25/2016 03:20:Nitza Gonzalez) Med Hx Heart Disease: No (03/25/2016 03:20:Nitza Gonzalez) Med Hx Autoimmune Disorder: No (03/25/2016 03:20:Nitza Gonzalez) Med Hx Kidney Disease/UTI: No (03/25/2016 03:20:Nitza Gonzalez) Med Hx Neurologic/Epilepsy: No (03/25/2016 03:20:Nitza Gonzalez) Med Hx Psychiatric Disorders: No (03/25/2016 03:20:Nitza Gonzalez) Med Hx Hepatitis/Liver Disease: No (03/25/2016 03:20:Nitza Gonzalez) Med Hx Varicosities/Phlebitis: No (03/25/2016 03:20:Nitza Gonzalez) Med Hx Thyroid Dysfunction: No (03/25/2016 03:20:Nitza Gonzalez) Med Hx Trauma/Violence: No (03/25/2016 03:20:Nitza Gonzalez) Med Hx Blood Transfusion: No (03/25/2016 03:20:Nitza Gonzalez) Med Hx Pulmonary (Asthma,TB): Yes (03/25/2016 03:20:Shaye Weiss RN) Med Hx Breast: No (03/25/2016 03:20:Nitza Gonzalez) Med Hx FINANCE ADMIN Surgery: No (03/25/2016 03:20:Nitza Gonzalez) Med Hx Hospitalization/Surgery: Yes (03/25/2016 03:20:Shaye Weiss RN) Med Hx Anesthetic Complications: No (03/25/2016 03:20:Nitza Gonzalez) Med Hx Abnormal Pap Smear: No (03/25/2016 03:20:Nitza Gonzalez) Other Medical Diseases: No (03/25/2016 03:20:Nitza Gonzalez) Med Hx Significant Family Hx: No (03/25/2016 03:20:Nitza Gonzalez) Details of Med/Surg Hx: Surgery: [place] teeth removed; Hip surgery bileratal hips for bone spurs and muscular tears (Annotations: Data stored by [facility] on behalf of user) (03/25/2016 03:20:Shaye Weiss RN) INFECTIOUS HISTORY Inf Hx Gonorrhea: No (03/25/2016 03:20:Nitza Gonzalez) Inf Hx Chlamydia: No (03/25/2016 03:20:Nitza Gonzalez) Inf Hx Syphilis: No (03/25/2016 03:20:Nitza Gonzalez) Inf Hx HIV/AIDS: No (03/25/2016 03:20:Nitza Gonzalez) Inf Hx Human Papilloma Virus: No (03/25/2016 03:20:Nitza Gonzalez) Inf Hx Pt/Partner Genital Herpes: No (03/25/2016 03:20:Nitza Gonzalez) Inf Hx Tuberculosis/Exposure: No (03/25/2016 03:20:Nitza Gonzalez) Inf Hx Hepatitis B,C: No (03/25/2016 03:20:Nitza Gonzalez) Inf Hx Rash or Viral Illness: No (03/25/2016 03:20:Nitza Gonzalez) GENETIC HISTORY Gen Hx Age >=35 at STEFFANY: No (03/25/2016 03:20:Nitza Gonzalez) Gen Hx Thalassemia: No (03/25/2016 03:20:Nitza Gonzalez) Gen Hx Congenital Heart Defect: No (03/25/2016 03:20:Nitza Gonzalez) Gen Hx Neural Tube Defect: No (03/25/2016 03:20:Nitza Gonzalez) Gen Hx Down's Syndrome: No (03/25/2016 03:20:Nitza Gonzalez) Gen Hx Jose Ramon-Sachs: No (03/25/2016 03:20:Nitza Gonzalez) Gen Hx Dea: No (03/25/2016 03:20:Nitza Gonzalez) Gen Hx Familial Dysautonomia: No (03/25/2016 03:20:Nitza Gonzalez) Gen Hx Sickle Cell Disease/Trait: No (03/25/2016 03:20:Nitza Gonzalez) Gen Hx Hemophilia/Blood Disorder: No (03/25/2016 03:20:Nitza Gonzalez) Gen Hx Muscular Dystrophy: No (03/25/2016 03:20:Nitza Gonzalez) Gen Hx Cystic Fibrosis: No (03/25/2016 03:20:Nitza Gonzalez) Gen Hx Huntingtons Chorea: No (03/25/2016 03:20:Nitza Gonzalez) Gen Hx Mental Retardation/Autism: No (03/25/2016 03:20:Nitza Gonzalez) Gen Hx Tested for Fragile X: No (03/25/2016 03:20:Nitza Gonzalez) Gen Hx Other Inher/Chromosomal: No (03/25/2016 03:20:Nitza Gonzalez) Gen Hx Maternal Metabolic DO: No (03/25/2016 03:20:Nitza Gonzalez) Gen Hx Pt Father or FOB Defect: No (03/25/2016 03:20:Nitza Gonzalez) Gen Hx Other Genetic History: No (03/25/2016 03:20:Nitza Gonzalez) Gen Hx Drugs/Meds since LMP: No (03/25/2016 03:20:Nitza Gonzalez)
--- NOTE | 2016-03-29 06:17 | L&D Current Admission ---
Current Admit Datetime Report Generated by CPN: 03/29/2016 06:00 ADMISSION INFORMATION Current Admit Date/Time: 03/25/2016 11:32 (03/25/2016 11:32:Gustavo Almeida RN) Reason for Admission: Rupture of Membranes (03/25/2016 11:32:Gustaov Almeida RN) Chief Complaint: Contractions; Suspected Rupture of Membranes (03/25/2016 11:35:Shaye Weiss RN) EGA per Dates: 40.1 (03/25/2016 11:32:QS system process) Method of Arrival: Ambulatory (03/25/2016 11:32:Gustavo Almeida RN) Admitted From: Home (03/25/2016 11:32:Gustavo Almeida RN) Reason for Induction: Not Applicable (03/25/2016 11:32:Gustavo Almeida RN) Records Available: Yes (03/25/2016 11:32:Gustavo Almeida RN) General Admission Information: Reviewed; Updated; Confirmed (03/25/2016 11:32:Gustavo Almeida RN) General Admission Reviewed By: Colin Weiss RN (03/25/2016 11:32:Gustavo Almeida RN)
--- NOTE | 2016-03-29 18:20 | L&D Current Admission ---
Current Admit Datetime Report Generated by CPN: 03/29/2016 18:00 ADMISSION INFORMATION Current Admit Date/Time: 03/25/2016 11:32 (03/25/2016 11:32:Gustavo Almeida RN) Reason for Admission: Rupture of Membranes (03/25/2016 11:32:Gustavo Almeida RN) Chief Complaint: Contractions; Suspected Rupture of Membranes (03/25/2016 11:35:Shaye Weiss RN) EGA per Dates: 40.1 (03/25/2016 11:32:QS system process) Method of Arrival: Ambulatory (03/25/2016 11:32:Gustavo Almeida RN) Admitted From: Home (03/25/2016 11:32:Gustavo Almeida RN) Reason for Induction: Not Applicable (03/25/2016 11:32:Gustavo Almeida RN) Records Available: Yes (03/25/2016 11:32:Gustavo Almeida RN) General Admission Information: Reviewed; Updated; Confirmed (03/25/2016 11:32:Gustavo Almeida RN) General Admission Reviewed By: Colin Weiss RN (03/25/2016 11:32:Gustavo Almeida RN)
--- NOTE | 2016-03-29 18:20 | L&D General Admission ---
General Admit Datetime Report Generated by CPN: 03/29/2016 18:00 INFORMATION Patient Age: 20 (02/16/2016 13:27:QS system process) EDC: 03/24/2016 00:00 (03/25/2016 03:20:Birgit Rangel RN) : 1 (03/25/2016 03:20:Birgit Rangel RN) Para: 0 (03/25/2016 05:11:Nitzavalerie Gonzalez) Term: 0 (03/25/2016 03:20:Birgit Rangel RN) : 0 (03/25/2016 03:20:Birgit Rangel RN) Spontaneous Abortions: 0 (03/25/2016 03:20:Birgit Rangel RN) Induced Abortions: 0 (03/25/2016 03:20:Birgit Rangel RN) Livin (03/25/2016 03:20:Birgit Rangel RN) Cesareans: 0 (03/25/2016 03:20:Shaye Weiss RN) VBACs: 0 (03/25/2016 03:20:Shaye Weiss RN) Ectopic: 0 (03/25/2016 03:20:Shaye Weiss RN) Multiple Births: 0 (03/25/2016 03:20:Shaye Weiss RN) Baby, Number in Womb: 1 (03/25/2016 05:11:Nitza Gonzalez) CARE Primary Technician Support Association: [facility] (03/25/2016 03:20:Birgit Rangel RN) Month of 1st Visit: 08/19 (03/25/2016 03:20:Shaye Weiss RN) Adequate Care: Yes (03/25/2016 03:20:Shaye Weiss RN) Height (in): 62 (03/27/2016 11:05:QS system process) ALLERGIES Medication Allergy: No (03/25/2016 03:20:Nitza Gonzalez) Medication Allergies: No Known Allergies (03/25/2016) (03/25/2016 03:45:QS system process) Latex Allergy: No Latex Allergies (03/25/2016 03:20:Nitza Gonzalez) Food Allergies: none (03/25/2016 03:20:Nitza Gonzalez) Environmental Allergies: none (03/25/2016 03:20:Nitza Gonzalez) COMMUNICATION Primary Language: Swiss (03/25/2016 03:20:Nitza Gonzalez) Medical Tx Preferred Language: Swiss (03/25/2016 03:20:Nitza Gonzalez) DEMOGRAPHICS Address: [address] [place] [id number] (02/16/2016 13:27:QS system process) Zipcode: [address] (02/16/2016 13:27:QS system process) Home (02/16/2016 13:27:QS system process) N: [id number] (02/16/2016 13:27:QS system process) Next of Kin Name: JOJO MELGOZA (02/16/2016 13:27:QS system process) Next of Kin (02/16/2016 13:27:QS system process) Next of Kin Relationship: SPO (02/16/2016 13:27:QS system process) Date of : 1995 (02/16/2016 13:27:QS system process) Marital Status: (02/16/2016 13:27:QS system process) Sex: Female (02/16/2016 13:27:QS system process) Race: (02/16/2016 13:27:QS system process) Ethnicity: Non- or (02/16/2016 13:27:QS system process) Islam: Mormon (02/16/2016 13:27:QS system process) DRUG AND ALCOHOL USE Alcohol: No (03/25/2016 03:20:Nitza Gonzalez) Cigarettes: Never Smoker. [id number] (03/25/2016 03:20:Nitza Gonzalez) Marijuana: No (03/25/2016 03:20:Nitza Gonzalez) Cocaine: No (03/25/2016 03:20:Nitza Gonzalez) Other Illicit Drugs: No (03/25/2016 03:20:Nitza Gonzalez) VACCINE HISTORY Influenza Vaccine: Yes (03/25/2016 03:20:Nitza Gonzalez) Influenza Date: 2015 (03/25/2016 03:20:Nitza Gonzalez) Pneumococcal Vaccine: No (03/25/2016 03:20:Nitza Gonzalez) Tetanus Vaccine: No (03/25/2016 03:20:Nitza Gonzalez) Tdap Vaccine: Yes (03/25/2016 03:20:Nitza Gonzalez) Tdap Date: 2015 (03/25/2016 03:20:Nitza Gonzalez) Hepatitis B Vaccine: No (03/25/2016 03:20:Nitza Gonzalez) Call Out Operator: [facility] (03/25/2016 03:20:Shaye Weiss RN) Feeding Preference: Breast (03/25/2016 03:20:Nitza Gonzalez) Benefit of Breast Feed Discussed: Yes (03/25/2016 03:20:Shaye Weiss RN) Circumcision: Yes (03/25/2016 03:20:Nitza Gonzalez) Classes Attended: No (03/25/2016 03:20:Nitza Gonzalez) Tubal Ligation: No (03/25/2016 03:20:Nitza Gonzalez) Tubal Authorization Signed: N/A (03/25/2016 03:20:Nitza Gonzalez) Consent: N/A (03/25/2016 03:20:Nitza Gonzalez) Consent Signed: N/A (03/25/2016 03:20:Nitza Gonzalez) Pain Management Plans: Epidural (03/25/2016 03:20:Nitza Gonzalez) Plans for Labor and Delivery: None (03/25/2016 03:20:Nitza oGnzalez) Support Person: Jojo (03/25/2016 03:20:Nitza Gonzalez) Support Person Relationship: (03/25/2016 03:20:Nitza Gonzalez) Cultural/Spritual Practice: No (03/25/2016 03:20:Nitza Gonzalez) Spir/Cult Dietary Needs: No (03/25/2016 03:20:Nitzavalerie Gonzalez) LIVING SITUATION/DISCHARGE PLAN Living Arrangements: House (03/25/2016 03:20:Nitza Gonzalez) Adequate Access to:: Electric; Heat; Refrigeration; Plumbing/Running water; Phone; Transportation (03/25/2016 03:20:Nitza Gonzalez) WIC Program: No (03/25/2016 03:20:Nitza Gonzalez) Discharge Block Paver Person: jojo- (03/25/2016 03:20:Nitza Gonzalze) Person to Help after Discharge: jojo- (03/25/2016 03:20:Nitza Gonzalez) Currently Using Commun Resources: No (03/25/2016 03:20:Nitza Gonzalez) Outside Agency/Credit Underwriter: No (03/25/2016 03:20:Nitza Gonzalez) Car Seat for Discharge: Yes (03/25/2016 03:20:Nitza Gonzalez) Adoption Requested: No (03/25/2016 03:20:Nitza Gonzalez) Pt Contact w/infant Post : N/A (03/25/2016 03:20:Nitzavalerie Gonzalez) LABS Blood Type: A Negative (03/25/2016 03:20:Birgit Rangel RN) Antibody Screen: negative (03/25/2016 03:20:Birgit Rangel RN) Rho(G) this : Yes (03/25/2016 03:20:Shaye Weiss RN) Date Rho(G) Given: 01/05/16 (03/25/2016 03:20:Shaye Weiss RN) Hemoglobin: 11.3 L (03/29/2016 13:32:QS system process) Hematocrit: 33.5 L (03/29/2016 13:32:QS system process) MCV: 91 (03/29/2016 13:32:QS system process) Group Beta Strep: negative (03/25/2016 03:20:Birgit Rangel RN) Gonorrhea: Negative (03/25/2016 03:20:Birgit Rangel RN) Chlamydia: Negative (03/25/2016 03:20:Birgit Rangel RN) RPR/VDRL: Nonreactive (03/25/2016 03:20:Birgit Rangel RN) HIV Exposure Test: Negative (03/25/2016 03:20:Shaye Weiss RN) HIV Results: nonreactive (03/25/2016 03:20:Birgit Rangel RN) Hepatitis B: Negative (03/25/2016 03:20:Birgit Rangel RN) Rubella: Immune (03/25/2016 03:20:Birgit Rangel RN) OB/PREVIOUS HISTORY Previous Procedures: None (03/25/2016 03:20:Nitza Gonzalez) Current Procedures: Ultrasound; NST (03/25/2016 03:20:Nitza Gonzalez) History of Previous : No (03/25/2016 03:20:Nitza Gonzalez) History of Gestational Diabetes: No (03/25/2016 03:20:Nitza Gonzalez) History of PIH: No (03/25/2016 03:20:Nitza Gonzalez) History of Incompetent Cervix: No (03/25/2016 03:20:Nitza Gonzalez) History of Placenta Previa/Abrup: No (03/25/2016 03:20:Nitza Gonzalez) History of Macrosomia: No (03/25/2016 03:20:Nitza Gonzalez) History of IUGR: No (03/25/2016 03:20:Nitza Gonzalez) History of Hemorrhage: No (03/25/2016 03:20:Nitza Gonzalez) History of Loss/Stillborn: No (03/25/2016 03:20:Nitza Gonzalez) History of : No (03/25/2016 03:20:Nitza Gonzalez) History of D (Rh) Sensitization: No (03/25/2016 03:20:Nitza Gonzalez) History Recurrent Loss/Stillborn: No (03/25/2016 03:20:Nitza Gonzalez) History Depression/PP Depression: No (03/25/2016 03:20:Nitza Gonzalez) History of Uterine Anomaly/DEVIN: No (03/25/2016 03:20:Nitza Gonzalez) History of Infertility: No (03/25/2016 03:20:Nitza Gonzalez) History of ART Treatment: No (03/25/2016 03:20:Nitza Gonzalez) History of DEVIN: No (03/25/2016 03:20:Nitza Gonzalez) Comments Obstetrical History: current 2016 (03/25/2016 03:20:Nitza Gonzalez) MEDICAL HISTORY Med Hx Diabetes: No (03/25/2016 03:20:Nitza Gonzalez) Med Hx Hypertension: No (03/25/2016 03:20:Nitza Gonzalez) Med Hx Heart Disease: No (03/25/2016 03:20:Nitza Gonzalez) Med Hx Autoimmune Disorder: No (03/25/2016 03:20:Nitza Gonzalez) Med Hx Kidney Disease/UTI: No (03/25/2016 03:20:Nitza Gonzalez) Med Hx Neurologic/Epilepsy: No (03/25/2016 03:20:Nitza Gonzalez) Med Hx Psychiatric Disorders: No (03/25/2016 03:20:Nitza Gonzalez) Med Hx Hepatitis/Liver Disease: No (03/25/2016 03:20:Nitza Gonzalez) Med Hx Varicosities/Phlebitis: No (03/25/2016 03:20:Nitza Gonzalez) Med Hx Thyroid Dysfunction: No (03/25/2016 03:20:Nitza Gonzalez) Med Hx Trauma/Violence: No (03/25/2016 03:20:Nitza Gonzalez) Med Hx Blood Transfusion: No (03/25/2016 03:20:Nitza Gonzalez) Med Hx Pulmonary (Asthma,TB): Yes (03/25/2016 03:20:Shaye Weiss RN) Med Hx Breast: No (03/25/2016 03:20:Nitza Gonzalez) Med Hx DATABASE MARKETING MANAGER Surgery: No (03/25/2016 03:20:Nitza Gonzalez) Med Hx Hospitalization/Surgery: Yes (03/25/2016 03:20:Shaye Weiss RN) Med Hx Anesthetic Complications: No (03/25/2016 03:20:Nitza Gonzalez) Med Hx Abnormal Pap Smear: No (03/25/2016 03:20:Nitza Gonzalez) Other Medical Diseases: No (03/25/2016 03:20:Nitza Gonzalez) Med Hx Significant Family Hx: No (03/25/2016 03:20:Nitza Gonzalez) Details of Med/Surg Hx: Surgery: [place] teeth removed; Hip surgery bileratal hips for bone spurs and muscular tears (Annotations: Data stored by [facility] on behalf of user) (03/25/2016 03:20:Shaye Weiss RN) INFECTIOUS HISTORY Inf Hx Gonorrhea: No (03/25/2016 03:20:Nitza Gonzalez) Inf Hx Chlamydia: No (03/25/2016 03:20:Nitza Gonzalez) Inf Hx Syphilis: No (03/25/2016 03:20:Nitza Gonzalez) Inf Hx HIV/AIDS: No (03/25/2016 03:20:Nitza Gonzalez) Inf Hx Human Papilloma Virus: No (03/25/2016 03:20:Nitza Gonzalez) Inf Hx Pt/Partner Genital Herpes: No (03/25/2016 03:20:Nitza Gonzalez) Inf Hx Tuberculosis/Exposure: No (03/25/2016 03:20:Nitza Gonzalez) Inf Hx Hepatitis B,C: No (03/25/2016 03:20:Intza Gonzalez) Inf Hx Rash or Viral Illness: No (03/25/2016 03:20:Nitza Gonzalez) GENETIC HISTORY Gen Hx Age >=35 at STEFFANY: No (03/25/2016 03:20:Nitza Gonzalez) Gen Hx Thalassemia: No (03/25/2016 03:20:Nitza Gonzalez) Gen Hx Congenital Heart Defect: No (03/25/2016 03:20:Nitza Gonzalez) Gen Hx Neural Tube Defect: No (03/25/2016 03:20:Nitza Gonzalez) Gen Hx Down's Syndrome: No (03/25/2016 03:20:Nitza Gonzalez) Gen Hx Jose Ramon-Sachs: No (03/25/2016 03:20:Nitza Gonzalez) Gen Hx Dea: No (03/25/2016 03:20:Nitza Gonzalez) Gen Hx Familial Dysautonomia: No (03/25/2016 03:20:Nitza Gonzalez) Gen Hx Sickle Cell Disease/Trait: No (03/25/2016 03:20:Nitza Gonzalez) Gen Hx Hemophilia/Blood Disorder: No (03/25/2016 03:20:Nitza Gonzalez) Gen Hx Muscular Dystrophy: No (03/25/2016 03:20:Nitza Gonzalez) Gen Hx Cystic Fibrosis: No (03/25/2016 03:20:Nitza Gonzalez) Gen Hx Huntingtons Chorea: No (03/25/2016 03:20:Nitza Gonzalez) Gen Hx Mental Retardation/Autism: No (03/25/2016 03:20:Nitza Gonzalez) Gen Hx Tested for Fragile X: No (03/25/2016 03:20:Nitza Gonzalez) Gen Hx Other Inher/Chromosomal: No (03/25/2016 03:20:Nitza Gonzalez) Gen Hx Maternal Metabolic DO: No (03/25/2016 03:20:Nitza Gonzalez) Gen Hx Pt Father or FOB Defect: No (03/25/2016 03:20:Nitza Gonzalez) Gen Hx Other Genetic History: No (03/25/2016 03:20:Nitza Gonzalez) Gen Hx Drugs/Meds since LMP: No (03/25/2016 03:20:Nitza Gonzalez)
--- NOTE | 2016-03-30 06:21 | L&D Current Admission ---
Current Admit Datetime Report Generated by CPN: 03/30/2016 06:00 ADMISSION INFORMATION Current Admit Date/Time: 03/25/2016 11:32 (03/25/2016 11:32:Gustavo Almeida RN) Reason for Admission: Rupture of Membranes (03/25/2016 11:32:Gustavo Almeida RN) Chief Complaint: Contractions; Suspected Rupture of Membranes (03/25/2016 11:35:Shaye Weiss RN) EGA per Dates: 40.1 (03/25/2016 11:32:QS system process) Method of Arrival: Ambulatory (03/25/2016 11:32:Gustavo Almeida RN) Admitted From: Home (03/25/2016 11:32:Gustavo Almeida RN) Reason for Induction: Not Applicable (03/25/2016 11:32:Gustavo Almeida RN) Records Available: Yes (03/25/2016 11:32:Gustavo Almeida RN) General Admission Information: Reviewed; Updated; Confirmed (03/25/2016 11:32:Gustavo Almeida RN) General Admission Reviewed By: Colin Weiss RN (03/25/2016 11:32:Gustavo Almeida RN)
--- NOTE | 2016-03-30 06:21 | L&D General Admission ---
General Admit Datetime Report Generated by CPN: 03/30/2016 06:00 INFORMATION Patient Age: 20 (02/16/2016 13:27:QS system process) EDC: 03/24/2016 00:00 (03/25/2016 03:20:Birgit Rangel RN) : 1 (03/25/2016 03:20:Birgit Rangel RN) Para: 0 (03/25/2016 05:11:Nitzavalerie Gonzalez) Term: 0 (03/25/2016 03:20:Birgit Rangel RN) : 0 (03/25/2016 03:20:Birgit Rangel RN) Spontaneous Abortions: 0 (03/25/2016 03:20:Birgit Rangel RN) Induced Abortions: 0 (03/25/2016 03:20:Birgit Rangel RN) Livin (03/25/2016 03:20:Birgit Rangel RN) Cesareans: 0 (03/25/2016 03:20:Shaye Weiss RN) VBACs: 0 (03/25/2016 03:20:Shaye Weiss RN) Ectopic: 0 (03/25/2016 03:20:Shaye Weiss RN) Multiple Births: 0 (03/25/2016 03:20:Shaye Weiss RN) Baby, Number in Womb: 1 (03/25/2016 05:11:Nitza Gonzalez) CARE Primary Strap Machine Operator Automatic: [facility] (03/25/2016 03:20:Birgit Rangel RN) Month of 1st Visit: 08/19 (03/25/2016 03:20:Shaye Weiss RN) Adequate Care: Yes (03/25/2016 03:20:Shaye Weiss RN) Height (in): 62 (03/27/2016 11:05:QS system process) ALLERGIES Medication Allergy: No (03/25/2016 03:20:Nitza Gonzalez) Medication Allergies: No Known Allergies (03/25/2016) (03/25/2016 03:45:QS system process) Latex Allergy: No Latex Allergies (03/25/2016 03:20:Nitza Gonzalez) Food Allergies: none (03/25/2016 03:20:Nitza Gonzalez) Environmental Allergies: none (03/25/2016 03:20:Nitza Gonzalez) COMMUNICATION Primary Language: Guamanian (03/25/2016 03:20:Nitza Gonzalez) Medical Tx Preferred Language: Guamanian (03/25/2016 03:20:Nitza Gonzalez) DEMOGRAPHICS Address: [address] [place] [id number] (02/16/2016 13:27:QS system process) Zipcode: [address] (02/16/2016 13:27:QS system process) Home (02/16/2016 13:27:QS system process) N: [phone] (02/16/2016 13:27:QS system process) Next of Kin Name: JOJO MELGOZA (02/16/2016 13:27:QS system process) Next of Kin (02/16/2016 13:27:QS system process) Next of Kin Relationship: SPO (02/16/2016 13:27:QS system process) Date of : 1995 (02/16/2016 13:27:QS system process) Marital Status: (02/16/2016 13:27:QS system process) Sex: Female (02/16/2016 13:27:QS system process) Race: (02/16/2016 13:27:QS system process) Ethnicity: Non- or (02/16/2016 13:27:QS system process) Mormonism: Congregation (02/16/2016 13:27:QS system process) DRUG AND ALCOHOL USE Alcohol: No (03/25/2016 03:20:Nitza Gonzalez) Cigarettes: Never Smoker. [id number] (03/25/2016 03:20:Nitza Gonzalez) Marijuana: No (03/25/2016 03:20:Nitza Gonzalez) Cocaine: No (03/25/2016 03:20:Nitza Gonzalez) Other Illicit Drugs: No (03/25/2016 03:20:Nitza Gonzalez) VACCINE HISTORY Influenza Vaccine: Yes (03/25/2016 03:20:Nitza Gonzalez) Influenza Date: 2015 (03/25/2016 03:20:Nitza Gonzalez) Pneumococcal Vaccine: No (03/25/2016 03:20:Nitza Gonzalez) Tetanus Vaccine: No (03/25/2016 03:20:Nitza Gonzalez) Tdap Vaccine: Yes (03/25/2016 03:20:Nitza Gonzalez) Tdap Date: 2015 (03/25/2016 03:20:Nitza Gonzalez) Hepatitis B Vaccine: No (03/25/2016 03:20:Nitza Gonzalez) Extrusion Die Repair Manager: [facility] (03/25/2016 03:20:Shaye Weiss RN) Feeding Preference: Breast (03/25/2016 03:20:Nitza Gonzalez) Benefit of Breast Feed Discussed: Yes (03/25/2016 03:20:Shaye Weiss RN) Circumcision: Yes (03/25/2016 03:20:Nitza Gonzalez) Classes Attended: No (03/25/2016 03:20:Nitza Gonzalez) Tubal Ligation: No (03/25/2016 03:20:Nitza Gonzalez) Tubal Authorization Signed: N/A (03/25/2016 03:20:Nitza Gonzalez) Consent: N/A (03/25/2016 03:20:Nitza Gonzalez) Consent Signed: N/A (03/25/2016 03:20:Nitza Gonzalez) Pain Management Plans: Epidural (03/25/2016 03:20:Nitza Gonzalez) Plans for Labor and Delivery: None (03/25/2016 03:20:Nitza Gonzalez) Support Person: Jojo (03/25/2016 03:20:Nitza Gonzalez) Support Person Relationship: (03/25/2016 03:20:Nitza Gonzalez) Cultural/Spritual Practice: No (03/25/2016 03:20:Nitza Gonzalez) Spir/Cult Dietary Needs: No (03/25/2016 03:20:Nitzavalerie Gonzalez) LIVING SITUATION/DISCHARGE PLAN Living Arrangements: House (03/25/2016 03:20:Nitza Gonzalez) Adequate Access to:: Electric; Heat; Refrigeration; Plumbing/Running water; Phone; Transportation (03/25/2016 03:20:Nitza Gonzalez) WIC Program: No (03/25/2016 03:20:Nitza Gonzalez) Discharge Document Control Assistant Person: jojo- (03/25/2016 03:20:Nitza Gonzalez) Person to Help after Discharge: jojo- (03/25/2016 03:20:Nitza Gonazlez) Currently Using Commun Resources: No (03/25/2016 03:20:Nitza Gonzalez) Outside Agency/Teacher Kindergarten: No (03/25/2016 03:20:Nitza Gonzalez) Car Seat for Discharge: Yes (03/25/2016 03:20:Nitza Gonzalez) Adoption Requested: No (03/25/2016 03:20:Nitza Gonzalez) Pt Contact w/infant Post : N/A (03/25/2016 03:20:Nitzavalerie Gonzalez) LABS Blood Type: A Negative (03/25/2016 03:20:Birgit Rangel RN) Antibody Screen: negative (03/25/2016 03:20:Birgit Rangel RN) Rho(G) this : Yes (03/25/2016 03:20:Shaye Weiss RN) Date Rho(G) Given: 01/05/16 (03/25/2016 03:20:Shaye Weiss RN) Hemoglobin: 11.3 L (03/29/2016 13:32:QS system process) Hematocrit: 33.5 L (03/29/2016 13:32:QS system process) MCV: 91 (03/29/2016 13:32:QS system process) Group Beta Strep: negative (03/25/2016 03:20:Birgit Rangel RN) Gonorrhea: Negative (03/25/2016 03:20:Birgit Rangel RN) Chlamydia: Negative (03/25/2016 03:20:Birgit Rangel RN) RPR/VDRL: Nonreactive (03/25/2016 03:20:Birgit Rangel RN) HIV Exposure Test: Negative (03/25/2016 03:20:Shaye Weiss RN) HIV Results: nonreactive (03/25/2016 03:20:Birgit Rangel RN) Hepatitis B: Negative (03/25/2016 03:20:Birgit Rangel RN) Rubella: Immune (03/25/2016 03:20:Birgit Rangel RN) OB/PREVIOUS HISTORY Previous Procedures: None (03/25/2016 03:20:Nitza Gonzalez) Current Procedures: Ultrasound; NST (03/25/2016 03:20:Nitza Gonzalez) History of Previous : No (03/25/2016 03:20:Nitza Gonzalez) History of Gestational Diabetes: No (03/25/2016 03:20:Nitza Gonzalez) History of PIH: No (03/25/2016 03:20:Nitza Gonzalez) History of Incompetent Cervix: No (03/25/2016 03:20:Nitza Gonzalez) History of Placenta Previa/Abrup: No (03/25/2016 03:20:Nitza Gonzalez) History of Macrosomia: No (03/25/2016 03:20:Nitza Gonzalez) History of IUGR: No (03/25/2016 03:20:Nitza Gonzalez) History of Hemorrhage: No (03/25/2016 03:20:Nitza Gonzalez) History of Loss/Stillborn: No (03/25/2016 03:20:Nitza Gonzalez) History of : No (03/25/2016 03:20:Nitza Goznalez) History of D (Rh) Sensitization: No (03/25/2016 03:20:Nitza Gonzalez) History Recurrent Loss/Stillborn: No (03/25/2016 03:20:Nitza Gonzalez) History Depression/PP Depression: No (03/25/2016 03:20:Nitza Gonzalez) History of Uterine Anomaly/DEVIN: No (03/25/2016 03:20:Nitza Gonzalez) History of Infertility: No (03/25/2016 03:20:Nitza Gonzalez) History of ART Treatment: No (03/25/2016 03:20:Nitza Gonzalez) History of DEVIN: No (03/25/2016 03:20:Nitza Gonzalez) Comments Obstetrical History: current 2016 (03/25/2016 03:20:Nitza Gonzalez) MEDICAL HISTORY Med Hx Diabetes: No (03/25/2016 03:20:Nitza Gonzalez) Med Hx Hypertension: No (03/25/2016 03:20:Nitza Gonzalez) Med Hx Heart Disease: No (03/25/2016 03:20:Nitza Gonzalez) Med Hx Autoimmune Disorder: No (03/25/2016 03:20:Nitza Gonzalez) Med Hx Kidney Disease/UTI: No (03/25/2016 03:20:Nitza Gonzalez) Med Hx Neurologic/Epilepsy: No (03/25/2016 03:20:Nitza Gonzalez) Med Hx Psychiatric Disorders: No (03/25/2016 03:20:Nitza Gonzalez) Med Hx Hepatitis/Liver Disease: No (03/25/2016 03:20:Nitza Gonzalez) Med Hx Varicosities/Phlebitis: No (03/25/2016 03:20:Nitza Gonzalez) Med Hx Thyroid Dysfunction: No (03/25/2016 03:20:Nitza Gonzalez) Med Hx Trauma/Violence: No (03/25/2016 03:20:Nitza Gonzalez) Med Hx Blood Transfusion: No (03/25/2016 03:20:Nitza Gonzalez) Med Hx Pulmonary (Asthma,TB): Yes (03/25/2016 03:20:Shaye Weiss RN) Med Hx Breast: No (03/25/2016 03:20:Nitza Gonzalez) Med Hx RN X RAY Surgery: No (03/25/2016 03:20:Nitza Gonzalez) Med Hx Hospitalization/Surgery: Yes (03/25/2016 03:20:Shaye Weiss RN) Med Hx Anesthetic Complications: No (03/25/2016 03:20:Nitza Gonzalez) Med Hx Abnormal Pap Smear: No (03/25/2016 03:20:Nitza Gonzalez) Other Medical Diseases: No (03/25/2016 03:20:Nitza Gonzalez) Med Hx Significant Family Hx: No (03/25/2016 03:20:Nitza Gonzalez) Details of Med/Surg Hx: Surgery: [place] teeth removed; Hip surgery bileratal hips for bone spurs and muscular tears (Annotations: Data stored by [facility] on behalf of user) (03/25/2016 03:20:Shaye Weiss RN) INFECTIOUS HISTORY Inf Hx Gonorrhea: No (03/25/2016 03:20:Nitza Gonzalez) Inf Hx Chlamydia: No (03/25/2016 03:20:Nitza Gonzalez) Inf Hx Syphilis: No (03/25/2016 03:20:Nitza Gonzalez) Inf Hx HIV/AIDS: No (03/25/2016 03:20:Nitza Gonzalez) Inf Hx Human Papilloma Virus: No (03/25/2016 03:20:Nitza Gonzalez) Inf Hx Pt/Partner Genital Herpes: No (03/25/2016 03:20:Nitza Gonzalez) Inf Hx Tuberculosis/Exposure: No (03/25/2016 03:20:Nitza Gonzalez) Inf Hx Hepatitis B,C: No (03/25/2016 03:20:Nitza Gonzalez) Inf Hx Rash or Viral Illness: No (03/25/2016 03:20:Nitza Gonzalez) GENETIC HISTORY Gen Hx Age >=35 at STEFFANY: No (03/25/2016 03:20:Nitza Gonzalez) Gen Hx Thalassemia: No (03/25/2016 03:20:Nitza Gonzalez) Gen Hx Congenital Heart Defect: No (03/25/2016 03:20:Nitza Gonzalez) Gen Hx Neural Tube Defect: No (03/25/2016 03:20:Nitza Gonzalez) Gen Hx Down's Syndrome: No (03/25/2016 03:20:Nitza Gonzalez) Gen Hx Jose Ramon-Sachs: No (03/25/2016 03:20:Nitza Gonzalez) Gen Hx Dea: No (03/25/2016 03:20:Nitza Gonzalez) Gen Hx Familial Dysautonomia: No (03/25/2016 03:20:Nitza Gonzalez) Gen Hx Sickle Cell Disease/Trait: No (03/25/2016 03:20:Nitza Gonzalez) Gen Hx Hemophilia/Blood Disorder: No (03/25/2016 03:20:Nitza Gonzalez) Gen Hx Muscular Dystrophy: No (03/25/2016 03:20:Nitza Gonzalez) Gen Hx Cystic Fibrosis: No (03/25/2016 03:20:Nitza Gonzalez) Gen Hx Huntingtons Chorea: No (03/25/2016 03:20:Nitza Gonzalez) Gen Hx Mental Retardation/Autism: No (03/25/2016 03:20:Nitza Gonzalez) Gen Hx Tested for Fragile X: No (03/25/2016 03:20:Nitza Gonzalez) Gen Hx Other Inher/Chromosomal: No (03/25/2016 03:20:Nitza Gonzalez) Gen Hx Maternal Metabolic DO: No (03/25/2016 03:20:Nitza Gonzalez) Gen Hx Pt Father or FOB Defect: No (03/25/2016 03:20:Nitza Gonzalez) Gen Hx Other Genetic History: No (03/25/2016 03:20:Nitza Gonzalez) Gen Hx Drugs/Meds since LMP: No (03/25/2016 03:20:Nitza Gonzalez)
== END 2016-03-27 15:20 | disposition home or self-care (01) | DRG 775 ==
LOC: LC 11:33 → LR 11:36 → 2N 20:18
PROVIDERS: ADMIT Obstetrics & Gynecology; ATTEND Obstetrics & Gynecology
PROC: 10E0XZZ Delivery of Products of Conception, External Approach (ICD-10-PCS; principal; 2016-03-25)
PROC: 4A1HXCZ Monitoring of Products of Conception, Cardiac Rate, External Approach (ICD-10-PCS; 2016-03-25)
DX: O99.02 Anemia complicating childbirth (principal); D64.9 Anemia, unspecified; O70.0 First degree perineal laceration during delivery; O99.513 Diseases of the respiratory system complicating pregnancy, third trimester; J45.909 Unspecified asthma, uncomplicated; Z3A.40 40 weeks gestation of pregnancy; Z37.0 Single live birth
CPT/HCPCS: 36415; 85025; 85027; 86592; 86850; 86870; 86900; 86901; 94760; J2300; J2550; J2590; J3490

== ENCOUNTER 2016-03-29 11:52 | Inpatient (IN) | payer OTHER ==
[2016-03-29] MEDS ORDERED: RINGERS SOLUTION,LACTATED 1,000 ML IV PRN (12:40)
[2016-03-29] MEDS ORDERED: ONDANSETRON HCL INJ/PF 4 MG/2 ML SDV IV PRN (12:41)
[2016-03-29 14:08] LABS: HEMATOCRIT 33.5 % (36.0-47.0); HEMOGLOBIN 11.3 g/dL (12.0-15.5); HGB HCT DIFFERENCE 0.4; MEAN CORPUSCULAR HEMOGLOBIN 30.7 pg (27.0-33.4); MEAN CORPUSCULAR HGB CONC 33.7 g/dL (32.0-36.0); MEAN CORPUSCULAR VOLUME 91 fl (80-97); RED BLOOD COUNT 3.68 10^6/uL (3.72-5.28); RED CELL DISTRIBUTION WIDTH 13.7 % (11.5-14.0); WHITE BLOOD COUNT 7.7 10^3/uL (4.0-10.5)
[2016-03-29] MEDS: OXYCODONE-ACETAMINOPHEN 5-325 MG TABLET PO PRN (14:09)
[2016-03-29] MEDS ORDERED: CEFAZOLIN 2 GM/D5W RTU 2 GM/50 ML RTUPB IV SCH (15:00)
[2016-03-29] MEDS: MORPHINE SULFATE 10 MG/ML INJ IV PRN ×3 (16:14→21:22)
[2016-03-29] MEDS ORDERED: CEFAZOLIN SODIUM 2 GM in DEXTROSE 5%-WATER 100 ML IV SCH (18:00)
[2016-03-29] MEDS: CEFAZOLIN 2 GM/D5W RTU 2 GM/50 ML RTUPB IV SCH (21:22)
[2016-03-30] MEDS: MORPHINE SULFATE 10 MG/ML INJ IV PRN ×4 (01:19→15:45)
[2016-03-30] MEDS: CEFAZOLIN 2 GM/D5W RTU 2 GM/50 ML RTUPB IV SCH ×4 (03:07→21:01)
[2016-03-30] MEDS ORDERED: SUCCINYLCHOLINE CHLORIDE INJ 200 MG/10 ML VIAL ONE (07:51)
[2016-03-30] MEDS ORDERED: GLYCOPYRROLATE INJ 0.4 MG/2 ML VIAL ONE (07:51)
[2016-03-30] MEDS ORDERED: LIDOCAINE 1% INJ-PF (10 MG/ML) 30 ML SDV ONE (08:53)
[2016-03-30] MEDS ORDERED: PROPOFOL INJ 200 MG/20 ML VIAL IV ONE (12:01)
[2016-03-30] MEDS ORDERED: FENTANYL CITRATE INJ/PF 100 MCG/2 ML AMPUL ONE (12:01)
[2016-03-30] MEDS ORDERED: MIDAZOLAM 2 MG/2 ML INJ ONE (12:01)
[2016-03-30] MEDS ORDERED: ONDANSETRON HCL INJ/PF 4 MG/2 ML SDV ONE (12:01)
[2016-03-30] MEDS ORDERED: BUPIVACAINE HCL 0.25 % INJ/PF (2.5 MG/1 ML) 30 ML VIAL ONE (12:34)
[2016-03-30] MEDS ORDERED: OXYCODONE-ACETAMINOPHEN 5-325 MG TABLET PO PRN ×2 (12:42)
[2016-03-30] MEDS ORDERED: DIPHENHYDRAMINE HCL 50 MG/ML VIAL IV PRN (12:42)
[2016-03-30] MEDS ORDERED: PROMETHAZINE HCL INJ 25 MG/1 ML VIAL IV PRN ×2 (12:42)
[2016-03-30] MEDS ORDERED: MEPERIDINE HCL/PF INJ 25 MG/1 ML DISP.SYRIN IV PRN (12:42)
[2016-03-30] MEDS ORDERED: MORPHINE SULFATE 10 MG/ML INJ IV PRN (12:42)
[2016-03-30] MEDS ORDERED: MORPHINE SULFATE 10 MG/ML INJ ONE (13:31)
--- NOTE | 2016-03-30 13:48 | OPERATIVE REPORT E ---
Operative Report NAME: JENNY MELGOZA : 1995 AGE: 20Y DATE OF SURGERY: 03/30/2016 ROOM: 205 PREOPERATIVE DIAGNOSIS: Dehiscence of vaginal laceration repair from childbirth. POSTOPERATIVE DIAGNOSIS: Dehiscence of vaginal laceration repair from childbirth. OPERATION: Repair of vaginal laceration dehiscence. SURGEON: RUSTY GODINEZ M.D. ANESTHESIA: General endotracheal. ESTIMATED BLOOD LOSS: 30 mL. SPECIMEN TO PATHOLOGY: None. TISSUE REMOVED OR ALTERED: Necrotic tissue, which was debrided, was discarded. FINDINGS: There was what appeared to be a second-degree vaginal perineal laceration with extension into the anterior aspect of the external anal sphincter was partially opened with some areas of granulation tissue and some areas of necrotic tissue. DESCRIPTION OF PROCEDURE: After discussing risks, benefits, and alternatives of the procedure and obtaining informed consent, the patient was taken to the operating room where general anesthesia was achieved. She was positioned in the dorsal lithotomy position, prepped and draped in the usual standard fashion. The bladder was drained of approximately 300 mL of clear urine. Marcaine a total of 10 mL was injected around the edges of the laceration distal to the hymenal ring. The old laceration was debrided and opened and irrigated fully. The tissue was debrided until an area of bleeding tissue was encountered. Then, the external anal sphincter was reapproximated with figure of eights of 2-0 Vicryl on the anterior and distal aspects of the capsule. Next, the bulbocavernosus muscles were reapproximated with 2-0 Vicryl. The vaginal and mucosa and vulvar mucosa were reapproximated with 3-0 Monocryl. Excellent hemostasis was observed. The tissue was irrigated. The patient was taken out of dorsal lithotomy and to recovery in stable condition. All sponge, needle, lap, and instrument counts were correct x2. DICTATING PHYSICIAN: RUSTY GODINEZ M.D. [id number] PHY#: [id number] ID: [id number] JOB#: [id number] ACCT: [id number] cc:RUSTY GODINEZ M.D. >
[2016-03-30] MEDS ORDERED: BENZOCAINE/MENTHOL AEROSOL SPRAY 56 ML TOP PRN (14:19)
[2016-03-30] MEDS ORDERED: PRENATAL VITAMIN W-O CA NO5/FE FUMARATE/FA CAPSULE PO ONE (15:30)
[2016-03-30] MEDS ORDERED: POLYETHYLENE GLYCOL 3350 POWDER 17 GM/1 PACKET PO ONE (16:00)
[2016-03-30] MEDS: OXYCODONE-ACETAMINOPHEN 5-325 MG TABLET PO PRN ×2 (18:18→22:22)
[2016-03-30] MEDS: IBUPROFEN 800 MG TABLET PO SCH (18:22)
[2016-03-31] MEDS: OXYCODONE-ACETAMINOPHEN 5-325 MG TABLET PO PRN ×2 (02:47→07:23)
[2016-03-31] MEDS: CEFAZOLIN 2 GM/D5W RTU 2 GM/50 ML RTUPB IV SCH ×2 (03:52→09:03)
[2016-03-31] MEDS ORDERED: BISACODYL 10 MG SUPP.RECT PR ONE (08:00)
[2016-03-31 08:06] VITALS: BP 105/59
[2016-03-31] MEDS: IBUPROFEN 800 MG TABLET PO SCH (09:28)
[2016-03-31] MEDS ORDERED: SENNOSIDES/DOCUSATE 8.6-50 MG 1 EACH TABLET PO SCH (10:00)
[2016-03-31] MEDS ORDERED: POLYETHYLENE GLYCOL 3350 POWDER 17 GM/1 PACKET PO SCH (10:00)
[2016-03-31] MEDS ORDERED: PRENATAL VITAMIN W-O CA NO5/FE FUMARATE/FA CAPSULE PO SCH (10:00)
== END 2016-03-31 11:20 | disposition home or self-care (01) | DRG 776 ==
LOC: 2N 11:52 → OBSVTOIN 12:25
PROVIDERS: ADMIT Obstetrics & Gynecology; ATTEND Obstetrics & Gynecology
PROC: 0WQNXZZ Repair Female Perineum, External Approach (ICD-10-PCS; principal; 2016-03-30 12:15)
DX: O90.1 Disruption of perineal obstetric wound (principal)
CPT/HCPCS: 36415; 85027; 86850; 86870; 86900; 86901; 940; J0330; J0690; J2250; J2270; J2405; J2704; J3010; J3490; J7120

== ENCOUNTER 2016-09-12 19:00 | Emergency (ER) | payer OTHER ==
[2016-09-12] MEDS ORDERED: ONDANSETRON 4 MG TAB.RAPDIS PO ONE (20:50)
[2016-09-12] MEDS ORDERED: IBUPROFEN 600 MG TABLET PO ONE (20:50)
--- NOTE | 2016-09-12 21:20 | ER Document Report ---
ED GI/ - General Chief Complaint: Abdominal Pain Stated Complaint: ABDOMINAL PAIN,NAUSEA Time Seen by Provider: 09/12/16 20:45 Notes: The patient is a 21-year-old female, , presents with intermittent lower abdominal cramping and pain with nausea, that worsened just prior to arrival. She felt like she was having contractions. She saw her primary care physician earlier today and was prescribed Zofran, but she has not filled the prescription. She has not had a period since her delivery 6 months ago. She currently is not having any abdominal pain and denies fevers, vomiting, diarrhea or constipation. TRAVEL OUTSIDE OF THE [place] IN LAST 30 DAYS: No - Related Data Allergies/Adverse Reactions: Sulfa (Sulfonamide Antibiotics) Allergy (Verified 03/29/16 12:55) Hives Past Medical History - General Information source: Patient - Social History Smoking Status: Never Smoker Family History: Reviewed & Not Pertinent Patient has suicidal ideation: No Patient has homicidal ideation: No Renal/ Medical History: Denies: Hx Peritoneal Dialysis Psychiatric Medical History: Denies: Hx Depression Past Surgical History: Reports: Hx Orthopedic Surgery Review of Systems - Review of Systems Notes: REVIEW OF SYSTEMS: CONSTITUTIONAL: -fevers, -chills EENT: -eye pain, -difficulty swallowing, -nasal congestion CARDIOVASCULAR:-chest pain, -syncope. RESPIRATORY: -cough, -SOB GASTROINTESTINAL: +suprapubic abdominal pain, +nausea, -vomiting, -diarrhea GENITOURINARY: -dysuria, -hematuria MUSCULOSKELETAL: -back pain, -neck pain SKIN: -rash or skin lesions. HEMATOLOGIC: -easy bruising or bleeding. LYMPHATIC: -swollen, enlarged glands. NEUROLOGICAL: -altered mental status or loss of consciousness, -headache, - neurologic symptoms PSYCHIATRIC: -anxiety, -depression. ALL OTHER SYSTEMS REVIEWED AND NEGATIVE. Physical Exam - Vital signs Vitals: Temp Pulse Resp BP Pulse Ox 98.2 F 92 18 129/79 H 100 09/12/16 19:24 09/12/16 19:24 09/12/16 19:24 09/12/16 19:24 09/12/16 19:24 - Notes Notes: PHYSICAL EXAMINATION: GENERAL: Well-appearing, well-nourished and in no acute distress. HEAD: Atraumatic, normocephalic. EYES: Pupils equal round and reactive to light, extraocular movements intact, sclera anicteric, conjunctiva are normal. ENT: nares patent, oropharynx clear without exudates. Moist mucous membranes. NECK: Normal range of motion, supple without lymphadenopathy LUNGS: Breath sounds clear to auscultation bilaterally and equal. No wheezes rales or rhonchi. HEART: Regular rate and rhythm without murmurs ABDOMEN: Soft, mild suprapubic tenderness, normoactive bowel sounds. No guarding, no rebound. No masses appreciated. EXTREMITIES: Normal range of motion, no pitting or edema. No cyanosis. NEUROLOGICAL: Cranial nerves grossly intact. Normal speech, normal gait. Normal sensory and motor exams. PSYCH: Normal mood, normal affect. SKIN: Warm, Dry, normal turgor, no rashes or lesions noted. Course - Re-evaluation Re-evalutation: Patient appears well. She has evidence of urinary tract infection. Will begin Macrobid and instructed her to continue Zofran for any nausea. No RLQ tenderness. She will follow-up with her primary care physician. Given return precautions and she understands. - Vital Signs Vital signs: Temp Pulse Resp BP Pulse Ox 98.2 F 84 20 128/86 H 96 09/12/16 19:24 09/12/16 23:59 09/12/16 23:59 09/12/16 23:59 09/12/16 23:59 - Laboratory Result Diagrams: 09/12/16 21:47 09/12/16 23:00 Laboratory results interpreted by me: 09/12/16 09/12/16 09/12/16 21:47 21:47 23:00 WBC 10.9 H RDW 14.3 H Eosinophils % 17.2 H Absolute Eosinophils 1.9 H Glucose 74 L Ur Leukocyte Esterase LARGE H Discharge - Discharge Clinical Impression: Abdominal cramping UTI (urinary tract infection) Qualifiers: Urinary tract infection type: acute cystitis Hematuria presence: without hematuria Qualified Code(s): N30.00 - Acute cystitis without hematuria Condition: Stable Disposition: HOME, SELF-CARE Additional Instructions: URINARY TRACT INFECTION: Your evaluation indicates that you have a urinary tract infection. This is due to germs growing in the bladder. This is a common problem. This infection usually responds quickly to antibiotics. Your antibiotic should be taken exactly as prescribed. Drink plenty of fluids -- three to four quarts a day. Occasionally, a bladder anesthetic will be prescribed to help stop the feeling of urgency until the antibiotic has a chance to clear the infection. This may cause your urine to be dark orange. Certain urine infections require a culture. If the doctor obtained a culture, the results will be back in two days. You should call to see if a change in treatment is needed. A repeat urinalysis after you finish treatment is often recommended. The physician will let you know if further testing is required. Call the doctor if you develop fever, chills, flank pain, inability to urinate, or blood in the urine. ANTIBIOTIC THERAPY: You have been given an antibiotic prescription. It's important that you take all the medication, unless instructed otherwise by your physician. Failure to complete the entire course can result in relapse of your condition. Common side effects of antibiotics include nausea, intestinal cramping, or diarrhea. Women may develop vaginal yeast infections, and babies can get yeast (thrush) in the mouth following the use of antibiotics. Contact your physician if you develop significant side effects from this medication. Allergy to this antibiotic can result in hives, wheezing, faintness, or itching. If symptoms of allergy occur, stop the medication and call the doctor. NITROFURANTOIN (MACRODANTIN, MACROBID): You have received a prescription for nitrofurantoin (Macrodantin). This antibiotic is used for urinary tract infections. Women who are or nursing should notify the physician before taking this medicine. If you have ever had a problem caused by this medication in the past, be sure the physician is aware of it. Common side effects of this medicine include nausea, vomiting, or decreased appetite. Notify your physician if these side effects become severe. Immediately stop this medicine and call the physician if you develop cough , shortness of breath, chest pain, weakness, jaundice (yellow color of the skin and whites of the eyes), or a skin rash. URINARY ANESTHETIC AGENT: You have been given a medication (Pyridium) for urinary tract discomfort. This medicine numbs the lining of the bladder and urethra, resulting in less pain, burning, and urgency. You may take it as needed, according to instructions. When the symptoms resolve, you can stop this medication (be sure to continue any other medications the doctor has given you). This medicine turns the urine a dark orange. It may stain underwear. Occasionally, it can cause nausea. Return for evaluation if there are any unexpected effects, such as itching, hives, or shortness of breath. FOLLOW-UP CARE: If you have been referred to a physician for follow-up care, call the physician s office for an appointment as you were instructed or within the next two days. If you experience worsening or a significant change in your symptoms, notify the physician immediately or return to the Emergency Department at any time for re-evaluation. ABDOMINAL PAIN: There are many causes of abdominal pain. Pain can mean a serious problem requiring surgery (such as appendicitis). It can also be an innocent problem that goes away on its own (such as a viral infection). Often, time must pass to determine the cause of pain. The physician does not feel that hospitalization is necessary, at present. Things may change within the next 24 hours. Call the doctor or come back for re- examination if any problems occur, such as: (1) Pain that becomes more severe, steady, or becomes concentrated in one specific area. Also, pain that is more severe with movement or coughing. (2) Vomiting that persists or becomes more frequent. (3) Blood in the vomitus, urine, or bowel movements. Blood in the stool may have a tarry or black appearance. (4) Shaking chills or fever greater than 100 degrees F. (5) The abdomen becomes more distended or swollen. (6) Bowel movements cease. (7) Failure to improve as expected. NORMAL EXAM AND WORKUP: At this time, your examination and workup show no significant abnormality. No significant abnormal physical findings are noted. All laboratory, EKG, and imaging (x-ray, CT scans, ultrasound) studies that were ordered show no significant abnormality. Although your examination and all studies that were ordered showed no significant abnormal finding, there are no examinations and no studies that are 100% accurate. There is always the possibility that some abnormality could exist and not be detected with physical examination or within the limits and capabilities of laboratory and other studies. You should return or follow up as you were instructed on your visit today for further evaluation if your symptoms do not resolve. ANTINAUSEA MEDICATION: You have been given a medication to suppress nausea and vomiting. This type of medication can be given as a shot, pill, or suppository. It will usually last for many hours. Pills and shots usually last six to eight hours, suppositories last about 12 hours. For the typical illness, only one or two doses of the medication may be necessary. Mild lightheadedness may occur. This type of medicine can cause drowsiness. Do not drive or operate dangerous machinery while under its influence. Do not mix with alcohol. See your doctor at once if you have muscle spasms or tightness, or uncontrollable motions (particularly of the neck, mouth, or jaw). Persistent vomiting or severe lightheadedness should also be evaluated by the physician. FOLLOW-UP CARE: If you have been referred to a physician for follow-up care, call the physician s office for an appointment as you were instructed or within the next two days. If you experience worsening or a significant change in your symptoms, notify the physician immediately or return to the Emergency Department at any time for re-evaluation. Prescriptions: Nitrofurantoin/Nitrofuran Mac [Macrobid 100 mg Capsule] 1 tab PO BID #10 capsule Phenazopyridine HCl [Pyridium 100 Mg Tablet] 100 mg PO Q8H #9 tablet
[2016-09-12 22:03] LABS: ABSOLUTE EOSINOPHILS # (AUTO) 1.9 10^3/uL (0.0-0.6); BASOPHILS % (AUTO) 0.2 % (0-2); EOSINOPHILS % (AUTO) 17.2 % (0-6); HEMATOCRIT 43.1 % (36.0-47.0); HGB HCT DIFFERENCE -1.1; LYMPHOCYTES % (AUTO) 27.9 % (13-45); MEAN CORPUSCULAR HEMOGLOBIN 28.5 pg (27.0-33.4); MEAN CORPUSCULAR HGB CONC 32.6 g/dL (32.0-36.0); MEAN CORPUSCULAR VOLUME 87 fl (80-97); MONOCYTES % (AUTO) 9.1 % (3-13); RED BLOOD COUNT 4.94 10^6/uL (3.72-5.28); RED CELL DISTRIBUTION WIDTH 14.3 % (11.5-14.0); SEGMENTED NEUTROPHILS % (AUTO) 45.6 % (42-78); WHITE BLOOD COUNT 10.9 10^3/uL (4.0-10.5)
[2016-09-12 22:10] LABS: APPEARANCE,URINE CLEAR; BILIRUBIN,URINE NEGATIVE (NEGATIVE); GLUCOSE, URINE NEGATIVE (NEGATIVE); KETONES,URINE NEGATIVE (NEGATIVE); LEUKOCYTE ESTERASE,URINE LARGE (NEGATIVE); NITRITE,URINE NEGATIVE (NEGATIVE); PROTEIN,URINE NEGATIVE (NEGATIVE); URINE SPECIFIC GRAVITY 1.011; UROBILINOGEN,URINE NEGATIVE mg/dL (<2.0)
[2016-09-12] MEDS ORDERED: NITROFURANTOIN MONOHYD/M-CRYST 100 MG CAPSULE PO ONE (22:25)
[2016-09-12] MEDS ORDERED: PHENAZOPYRIDINE HCL 100 MG TABLET PO ONE (23:06)
[2016-09-12] MEDS ORDERED: ACETAMINOPHEN 325 MG TABLET PO ONE (23:06)
[2016-09-12 23:42] LABS: ALANINE AMINOTRANSFERASE 28 U/L (9-52); ALBUMIN 4.7 g/dL (3.5-5.0); ALKALINE PHOSPHATASE 92 U/L (38-126); ANION GAP 15 (5-19); ASPARTATE AMINO TRANSFERASE 18 U/L (14-36); BILIRUBIN,DIRECT 0.2 mg/dL (0.0-0.4); BILIRUBIN,TOTAL 0.9 mg/dL (0.2-1.3); BLOOD UREA NITROGEN 19 mg/dL (7-20); CALCIUM 8.9 mg/dL (8.4-10.2); CARBON DIOXIDE 23 mmol/L (22-30); CHLORIDE 103 mmol/L (98-107); CREATININE RESULT 0.71 mg/dL (0.52-1.25); GLUCOSE 74 mg/dL (75-110); LIPASE 145.7 U/L (23-300); POTASSIUM 4.4 mmol/L (3.6-5.0); SODIUM 140.5 mmol/L (137-145); TOTAL PROTEIN 7.3 g/dL (6.3-8.2)
[2016-09-13] VITALS: BP 128/86
== END 2016-09-13 | disposition home or self-care (01) ==
LOC: ER 19:00
DX: N30.00 Acute cystitis without hematuria (principal); R10.30 Lower abdominal pain, unspecified; R11.0 Nausea
CPT/HCPCS: 99284; 36415; 87086; 83690; 85025; 81025; 80053; 81001; S0119; J3490; J8499

== ENCOUNTER 2018-01-21 21:57 | Inpatient (IN) | payer OTHER ==
[2018-01-21 22:43] LABS: APPEARANCE,URINE CLEAR; BILIRUBIN,URINE NEGATIVE (NEGATIVE); COLOR,URINE STRAW; GLUCOSE, URINE NEGATIVE (NEGATIVE); KETONES,URINE NEGATIVE (NEGATIVE); LEUKOCYTE ESTERASE,URINE NEGATIVE (NEGATIVE); NITRITE,URINE NEGATIVE (NEGATIVE); PROTEIN,URINE NEGATIVE (NEGATIVE); URINE SPECIFIC GRAVITY 1.003; UROBILINOGEN,URINE NEGATIVE mg/dL (<2.0)
[2018-01-21] MEDS ORDERED: RINGERS SOLUTION,LACTATED 1,000 ML IV PRN (22:45)
[2018-01-21 23:03] LABS: URINE AMPHETAMINES SCREEN NEGATIVE; URINE BARBITURATES SCREEN NEGATIVE; URINE BENZODIAZEPINES SCREEN NEGATIVE; URINE COCAINE SCREEN NEGATIVE; URINE MARIJUANA (THC) SCREEN NEGATIVE; URINE METHADONE SCREEN NEGATIVE; URINE PHENCYCLIDINE SCREEN NEGATIVE
[2018-01-21 23:16] LABS: ABSOLUTE EOSINOPHILS # (AUTO) 0.1 10^3/uL (0.0-0.6); ABSOLUTE LYMPHOCYTES (AUTO) 2.9 10^3/uL (0.5-4.7); ABSOLUTE MONOCYTES (AUTO) 0.8 10^3/uL (0.1-1.4); ABSOLUTE NEUT (AUTO) 4.2 10^3/uL (1.7-8.2); BASOPHILS % (AUTO) 0.2 % (0-2); EOSINOPHILS % (AUTO) 0.9 % (0-6); HEMATOCRIT 35.4 % (36.0-47.0); HEMOGLOBIN 12.3 g/dL (12.0-15.5); LYMPHOCYTES % (AUTO) 35.9 % (13-45); MEAN CORPUSCULAR HEMOGLOBIN 31.3 pg (27.0-33.4); MEAN CORPUSCULAR HGB CONC 34.8 g/dL (32.0-36.0); MEAN CORPUSCULAR VOLUME 90 fl (80-97); MONOCYTES % (AUTO) 10.6 % (3-13); PLATELET COUNT 181 10^3/uL (150-450); RED BLOOD COUNT 3.94 10^6/uL (3.72-5.28); RED CELL DISTRIBUTION WIDTH 13.6 % (11.5-14.0); SEGMENTED NEUTROPHILS % (AUTO) 52.4 % (42-78); TOTAL CELLS COUNTED % (AUTO) 100 %
[2018-01-22] MEDS ORDERED: MISOPROSTOL 0.2 MG TABLET ONE (00:23)
[2018-01-22] MEDS ORDERED: PROMETHAZINE HCL INJ 25 MG/1 ML VIAL ONE (00:23)
[2018-01-22] MEDS ORDERED: NALBUPHINE HCL INJ 10 MG/1 ML AMPULE ONE (00:23)
[2018-01-22] MEDS ORDERED: LIDOCAINE 1% INJ-PF (10 MG/ML) 30 ML SDV ONE (00:24)
[2018-01-22] MEDS ORDERED: OXYTOCIN/NORMAL SALINE 20 UNIT/1,000 ML RTUINJ ONE (00:24)
[2018-01-22] MEDS ORDERED: PROMETHAZINE HCL INJ 25 MG/1 ML VIAL IV ONE (00:35)
[2018-01-22] MEDS ORDERED: NALBUPHINE HCL INJ 10 MG/1 ML AMPULE INJ ONE (00:35)
--- NOTE | 2018-01-22 01:57 | Admission Physical ---
Datetime Report Generated by CPN: 01/22/2018 01:56 CURRENT ADMISSION Chief Complaint: Uterine Contractions; Suspected Ruptured Membranes Indication for Induction: Not Applicable Admit Impression : Term, Intrauterine Admit Plan: Initiate Labor Protocol ALLERGIES Medication Allergies: Yes Medication Allergies: Sulfa (Sulfonamide Antibiotics)/Hives (01/22/2018) Latex: No Latex Allergies OBSTETRICAL HISTORY EDC: 01/16/2018 00:00 : 2 Para: 1 Term: 1 : 0 SAB: 0 IAB: 0 Ectopic: 0 Livin Cesareans: 0 VBACs: 0 Multiple Births: 0 Gestational Diabetes: No Rh Sensitization: No Incompetent Cervix: No DEVIN: No Infertility: No ART Treatment: No Uterine Anomaly: No IUGR: No Hx Previous C/S: No Macrosomia: No Hx Loss/Stillborn: No PIH: No Hx : No Placenta Previa/Abruption: No Depression/PP Depression: No PTL/PROM: No Post Hemorrhage: No Current Procedures: Ultrasound; NST Obstetrical History Comments: g1- 2016, ,40+1 weeks gestation, male, 7lb 8oz, 1st degree tear that later dehisced g2- current SEE RECORDS Alcohol: No Marijuana : No Cocaine: No Other Illicit Drugs: No Cigarettes: Never Smoker. [id number] MEDICAL HISTORY Diabetes: No Blood Transfusion: No Pulmonary Disease (Asthma, TB): Yes Breast Disease: No Hypertension: No Asphalt Coater Surgery: No Heart Disease: No Hosp/Surgery: Yes Autoimmune Disorder: No Anesthetic Complications: No Kidney Disease: No Abnormal Pap Smear: No Neuro/Epilepsy: No Psychiatric Disorders: No Other Medical Diseases: No Hepatitis/Liver Disease: No Significant Family History: No Varicosities/Phlebitis: No Trauma/Violence : No Thyroid Dysfunction: No Medical History Comments: childbirth x 1, dehiscense of vaginal laceration due to childbirth, hip surgery on bilateral hips in 2012, wisdom teeth removed, asthma INFECTIOUS HISTORY Gonorrhea: No Genital Herpes: No Chlamydia: No Tuberculosis: No Syphilis: No Hepatitis: No HIV/AIDS Exposure: No Rash or Viral Illness: No HPV: No PHYSICAL EXAM General: Normal HEENT: Normal Neurologic: Normal Thyroid: Normal Heart: Normal Lungs: Normal Breast: Deferred Back: Normal Abdomen: Normal Genitourinary Exam: Normal Extremities: Normal DTRs: Normal Pelvic Type: Adequate VAGINAL EXAM Dilatation: 3 MEMBRANES Membranes: Ruptured Amniotic Fluid Color: Clear FETUS A EGA: 40.6 Monitoring: External US PLANS FOR LABOR AND DELIVERY Labor and Delivery: None Pain Management: Epidural Feeding Preference: Breast Benefit of Breast Feed Discussed: Yes Circumcision: N/A INFORMED CONSENT Signature: with User ID: [email or web address]
[2018-01-22] MEDS ORDERED: OXYTOCIN/NORMAL SALINE 20 UNIT/1,000 ML RTUINJ IV PRN ×2 (02:55→09:03)
[2018-01-22] MEDS ORDERED: EPHEDRINE SULFATE INJ 50 MG/1 ML AMPULE ONE (03:35)
[2018-01-22] MEDS ORDERED: FENTANYL/BUPIVACAINE/NS/PF 300 MCG/150 ML RTUINJ EPI ONE (03:36)
[2018-01-22] MEDS ORDERED: BUPIVACAINE HCL 0.5 % INJ/PF 30 ML SDV ONE (03:36)
[2018-01-22] MEDS ORDERED: ONDANSETRON HCL INJ/PF 4 MG/2 ML SDV ONE (05:58)
[2018-01-22] MEDS ORDERED: ONDANSETRON HCL INJ/PF 4 MG/2 ML SDV IV ONE (06:00)
[2018-01-22] MEDS ORDERED: FENTANYL CITRATE INJ/PF 100 MCG/2 ML AMPUL IV ONE ×2 (08:35→09:05)
[2018-01-22] MEDS ORDERED: FENTANYL CITRATE INJ/PF 100 MCG/2 ML AMPUL ONE (08:40)
[2018-01-22] MEDS ORDERED: ZOLPIDEM TARTRATE 5 MG TABLET PO PRN (09:03)
[2018-01-22] MEDS ORDERED: GLYCERIN/WITCH HAZEL LEAF 1 EACH MED..PAD TP PRN (09:03)
[2018-01-22] MEDS ORDERED: PROMETHAZINE HCL 25 MG TABLET PO PRN (09:03)
[2018-01-22] MEDS ORDERED: DIBUCAINE 1% OINTMENT 28 GM TP PRN (09:03)
[2018-01-22] MEDS ORDERED: ACETAMINOPHEN 650 MG SUPP.RECT PR PRN (09:03)
[2018-01-22] MEDS ORDERED: PSEUDOEPHEDRINE HCL 30 MG TABLET PO PRN (09:03)
[2018-01-22] MEDS ORDERED: ACETAMINOPHEN WITH CODEINE #3 TABLET PO PRN (09:03)
[2018-01-22] MEDS ORDERED: NA PHOS,M-B/NA PHOS,DI-BA (ADULT) 133 ML ENEMA PR PRN (09:03)
[2018-01-22] MEDS ORDERED: DIPH/PERTUSS(ACELL)/TETANUS VAC/PF 0.5 ML SYR (>=10YO) IM PRN (09:03)
[2018-01-22] MEDS ORDERED: BENZOCAINE/MENTHOL AEROSOL SPRAY 56 ML TOP PRN (09:03)
[2018-01-22] MEDS ORDERED: MEASLES,MUMPS&RUBELLA VACC/PF 0.5 ML VIAL SUBCUT PRN (09:03)
[2018-01-22] MEDS ORDERED: PROMETHAZINE HCL 25 MG SUPP.RECT PR PRN (09:03)
[2018-01-22] MEDS ORDERED: PROMETHAZINE HCL INJ 25 MG/1 ML VIAL IV PRN (09:03)
[2018-01-22] MEDS ORDERED: MAGNESIUM HYDROXIDE SUSP 30 ML UDCUP PO PRN (09:03)
[2018-01-22] MEDS ORDERED: DIPHENHYDRAMINE HCL 25 MG CAPSULE PO PRN (09:03)
[2018-01-22] MEDS: FERROUS SULFATE 325 MG TABLET PO SCH ×2 (12:17→17:15)
[2018-01-22] MEDS: DOCUSATE SODIUM 100 MG CAPSULE PO SCH ×2 (12:17→17:15)
[2018-01-22] MEDS: SENNOSIDES/DOCUSATE 8.6-50 MG 1 EACH TABLET PO SCH (12:18)
[2018-01-22] MEDS: FAMOTIDINE 20 MG TABLET PO SCH ×2 (12:18→22:40)
[2018-01-22] MEDS: PRENATAL VITAMIN W DHA CAPSULE PO SCH (12:18)
[2018-01-22] MEDS: ACETAMINOPHEN WITH CODEINE #3 TABLET PO PRN ×3 (12:20→21:49)
[2018-01-22] MEDS: IBUPROFEN 800 MG TABLET PO SCH ×2 (14:07→21:48)
[2018-01-23] MEDS: ACETAMINOPHEN WITH CODEINE #3 TABLET PO PRN ×4 (03:57→20:54)
[2018-01-23] MEDS: IBUPROFEN 800 MG TABLET PO SCH ×3 (05:45→21:16)
[2018-01-23 07:33] LABS: HEMOGLOBIN 10.5 g/dL (12.0-15.5); MEAN CORPUSCULAR HEMOGLOBIN 31.7 pg (27.0-33.4); MEAN CORPUSCULAR VOLUME 91 fl (80-97); PLATELET COUNT 154 10^3/uL (150-450); RED BLOOD COUNT 3.31 10^6/uL (3.72-5.28); RED CELL DISTRIBUTION WIDTH 13.5 % (11.5-14.0); WHITE BLOOD COUNT 9.4 10^3/uL (4.0-10.5)
[2018-01-23] MEDS: FAMOTIDINE 20 MG TABLET PO SCH ×2 (09:29→21:16)
[2018-01-23] MEDS: PRENATAL VITAMIN W DHA CAPSULE PO SCH (09:29)
[2018-01-23] MEDS: DOCUSATE SODIUM 100 MG CAPSULE PO SCH ×2 (09:29→17:13)
[2018-01-23] MEDS: SENNOSIDES/DOCUSATE 8.6-50 MG 1 EACH TABLET PO SCH (09:29)
[2018-01-23] MEDS: FERROUS SULFATE 325 MG TABLET PO SCH ×2 (09:29→17:13)
--- NOTE | 2018-01-23 09:52 | PDOC DISCHARGE SUMMARY ---
Final Diagnosis Discharge Date: 01/23/18 - PP Day #1, doing well, no complaints, pt would like to go home later on today if possible. A negative, Rubella Immune. - Final Diagnosis (1) Normal course Is this a current diagnosis for this admission?: Yes (2) Vaginal delivery Is this a current diagnosis for this admission?: Yes Discharge Data - Discharge Medication Prescriptions: Ibuprofen [Motrin 800 mg Tablet] 800 mg PO Q8 #60 tablet Home Medications: Vit/Iron Fum/Folic AC [ Tablet] 1 tab PO DAILY 03/25/16 Ibuprofen [Motrin 800 mg Tablet] 800 mg PO Q8 #60 tablet 01/23/18 Reason(s) for Admission: Onset of Labor Procedures: Ultrasound Intrapartum Procedure(s): Spontaneous Vaginal Delivery Complication(s): Laceration-Perineal Laceration-Degree: 2nd - Diagnosis Test Laboratory: Temp Pulse Resp BP Pulse Ox 98.1 F 80 16 106/68 98 01/23/18 07:49 01/23/18 07:49 01/23/18 07:49 01/23/18 07:49 01/23/18 07:49 01/21/18 01/21/18 01/23/18 22:10 22:55 06:58 RBC 3.94 3.31 L Hgb 12.3 10.5 L Hct 35.4 L 30.0 L Urine Opiates Screen NEGATIVE - Discharge information/Instructions Discharge Activity: Activity As Tolerated, No Lifting Over 10 Pounds, Pelvic Rest Discharge Diet: As Tolerated, Regular Disposition: HOME, SELF-CARE Follow up with: [facility] in: 4, Weeks
--- NOTE | 2018-01-23 15:44 | PDOC PROGRESS REPORT ---
Subjective-OB Progress Note for:: 01/23/18 - PP Day #1, pt unable to be discharged home this afternoon. Physical Exam (OB) Vital Signs: Temp Pulse Resp BP Pulse Ox 98.1 F 80 16 106/68 98 01/23/18 07:49 01/23/18 07:49 01/23/18 07:49 01/23/18 07:49 01/23/18 07:49 Intake & Output 01/22/18 01/23/18 01/24/18 06:59 06:59 06:59 Weight 63.5 kg - General General Appearance: Appears well, Alert - Lochia Lochia Amount: Scant < 10 ml Lochia Color: Rubra/Red - Abdomen Description: Soft, Round Hernia Present: No Fundal Description: Firm, Midline Fundal Height: u/u - u/2 - Respiratory Respiratory Status: No respiratory distress - Abdominal Inspection: Normal Distension: No distension - Genitourinary Genitourinary Note: voiding - Extremities Upper extremity: Normal inspection Lower extremities: Normal inspection Objective-Diagnostic Laboratory: 01/23/18 06:58 01/23/18 06:58 WBC 9.4 RBC 3.31 L Hgb 10.5 L Hct 30.0 L MCV 91 MCH 31.7 MCHC 35.0 RDW 13.5 Plt Count 154 Assessment and Plan(PN) - Assessment and Plan (1) Normal course Is this a current diagnosis for this admission?: Yes (2) Vaginal delivery Is this a current diagnosis for this admission?: Yes - Time Spent with Patient Time with patient: Less than 15 minutes Medications reviewed and adjusted accordingly: Yes - Disposition Anticipated Discharge: Home Within: within 24 hours
[2018-01-23 20:12] VITALS: BP 110/68
[2018-01-24] MEDS: IBUPROFEN 800 MG TABLET PO SCH (05:53)
[2018-01-24] MEDS: FERROUS SULFATE 325 MG TABLET PO SCH (09:21)
[2018-01-24] MEDS: DOCUSATE SODIUM 100 MG CAPSULE PO SCH (09:22)
[2018-01-24] MEDS: FAMOTIDINE 20 MG TABLET PO SCH (09:22)
[2018-01-24] MEDS: PRENATAL VITAMIN W DHA CAPSULE PO SCH (09:22)
[2018-01-24] MEDS: SENNOSIDES/DOCUSATE 8.6-50 MG 1 EACH TABLET PO SCH (09:22)
--- NOTE | 2018-01-29 14:09 | Delivery Summary ---
Del Sum A-C Datetime Report Generated by CPN: 01/29/2018 14:09 DELIVERY PERSONNEL DELIVERY PERSONNEL: [id number] Delivery Doctor:: Gloria Cage CNM Nurse Management Psychologist Certified:: Gloria Cage CNM Labor and Delivery Nurse:: Maria C Florez RNgrips Nurse:: SCOTTY Burroughs Agile Scrum Master/END USER CONSULTANT: Zhanna Espinal CST Additional Personnel: : Bonnie Silver RN MATERNAL INFORMATION Delivery Anesthesia: Epidural Medications After Delivery: Pitocin Drip 20 Units/1000ml NSS Meds After Delivery Comment: pitocin 20 units in 1000 fentanyl 100 mcg IV Maternal Complications: None Provider Comments: OBED, VIABLE FEMALE WITH SPONTANEOUS CRY. CORD DOUBLE CLAMPED AND CUT. SPONTANEOUS INTACT PLACENTA WITH 3VC. PT GIVEN FENTANYL FOR C/O PAIN. MOTHER AND INFANT STABLE IN L_D #3. LABOR SUMMARY EDC: 01/16/2018 00:00 No. Babies in Womb: 1 Attempted: No Labor Anesthesia: Epidural LABOR INFORMATION Reason for Induction: Not Applicable Onset of Labor: 01/21/2018 21:30 Complete Dilatation: 01/22/2018 08:07 Oxytocin: Augmentation Group B Beta Strep: negative Steroids Given: None Reason Steroids Not Administered: Not Applicable MEMBRANES Membranes Rupture Method: Spontaneous Rupture of Membranes: 01/21/2018 21:30 Length of Rupture (hr): 11.03 Amniotic Fluid Color: Clear Amniotic Fluid Amount: Moderate Amniotic Fluid Odor: Normal STAGES OF LABOR Stage 1 hr: 10 Stage 1 min: 37 Stage 2 hr: 0 Stage 2 min: 25 Stage 3 hr: 0 Stage 3 min: 2 Total Time in Labor hr: 11 Total Time in Labor min: 4 VAGINAL DELIVERY Episiotomy: None Laceration #1: Perineal Laceration Extension #1: Second Degree Laceration Repair: Yes Laceration Repair Note: repaired with 3.0 chromic under local and epidural anesthesia. Sponge Count Correct: Yes Sharps Count Correct: Yes CSECTION DELIVERY Primary Indication: N/A Secondary Indication: N/A CSection Incidence: N/A Labor: N/A Elective: N/A CSection Incision: N/A BABY A INFORMATION Delivery Date/Time: 01/22/2018 08:32 Method of Delivery: Vaginal Method of Delivery: Vaginal Born in Route : No : N/A Forceps: N/A Vacuum Extraction: N/A Shoulder Dystocia : No PRESENTATION/POSITION BABY A Presentation: Cephalic Cephalic Presentation: Vertex Vertex Position: Right Occipital Anterior Breech Presentation: N/A PLACENTA INFORMATION BABY A Placenta Delivery Time : 01/22/2018 08:34 Placenta Method of Delivery: Spontaneous Placenta Method of Delivery: Spontaneous Placenta Status: Delivered SCORES BABY A Heart Rate 1 min: >100 bpm Resp Effort 1 min: Good Cry Reflex Irritability 1 min: Cough or Sneeze or Pulls Away Muscle Tone 1 min: Active Motion Color 1 min: Body [place], Extremities Blue Resuscitation Effort 1 min: Tactile Stimulation SCORE 1 MIN: 9 Heart Rate 5 min: >100 bpm Resp Effort 5 min: Good Cry Reflex Irritability 5 min: Cough or Sneeze or Pulls Away Muscle Tone 5 min: Active Motion Color 5 min: Body [place], Extremities Blue Resuscitation Effort 5 min: N/A SCORE 5 MIN: 9 INFORMATION BABY A Gestational Age at Delivery: 40.6 Gestational Status: Full Term- 39- 40.6 Weeks Infant Outcome : Liveborn Infant Condition : Stable Infant Sex: Female IDENTIFICATION BABY A Infant Verification Date/Time: 01/22/2018 09:17 ID Band Number: [id number] Mother's Name Verified: Yes Infant RN Verifying : [facility] Additional Verifying Personnel: Zhanna Silver, RN WEIGHT/LENGTH BABY A Infant Birthweight (gm): 3080 Weight (lb): 6 Infant Weight (oz): 13 Infant Length (in): 19.50 Infant Length (cm): 49.53 CORD INFORMATION BABY A No. Cord Vessels: 3 Nuchal Cord : N/A Cord Blood Taken: Yes-For Eval (Mom's Blood Type - or O+) Infant Suction: None ASSESSMENT BABY A Complications: None Physical Findings at Delivery: Within Normal Limits Respirations: Appears Normal Skin to Skin: Yes Skin to Skin: Yes Skin to Skin: Yes Skin to Skin Time (min): 70 Ambulance Paramedic/ALS Called : No Care By: B Baidy RN Transferred To: Remains with Mother BABY B INFORMATION : N/A SIGNATURES Assignment: Alisia Tobin MD Signature: with User ID: [email or web address] : with User ID: [email or web address] : I was personally available for consultation and serving as supervising physician for the MLP.
== END 2018-01-24 13:10 | disposition home or self-care (01) | DRG 807 ==
LOC: LC 21:57 → LR 22:47 → 2S 01-22 10:45
PROVIDERS: ADMIT Obstetrics & Gynecology; ATTEND Obstetrics & Gynecology
PROC: 10E0XZZ Delivery of Products of Conception, External Approach (ICD-10-PCS; principal; 2018-01-22)
PROC: 0KQM0ZZ Repair Perineum Muscle, Open Approach (ICD-10-PCS; 2018-01-22)
DX: O36.0930 Maternal care for other rhesus isoimmunization, third trimester, not applicable or unspecified (principal); Z37.0 Single live birth; O70.1 Second degree perineal laceration during delivery; O99.52 Diseases of the respiratory system complicating childbirth; J45.909 Unspecified asthma, uncomplicated; Z3A.40 40 weeks gestation of pregnancy
CPT/HCPCS: 36415; 80307; 81005; 84112; 85025; 85027; 86592; 86850; 86870; 86900; 86901; 94760; J2300; J2405; J2550; J2590; J3010; J3490